=== PATIENT | female | born 1985 | race African-American/Black ===

== ENCOUNTER 2020-05-02 20:10 | Emergency (ER) | payer OTHER, SELFPAY ==
--- NOTE | ~2020-05-02 | XR_ITS ---
EXAMINATION: XR ankle RT min 3V DATE: 05/02/2020 21:16 INDICATION: Right ankle pain TECHNIQUE: Anteroposterior, lateral, mortise, and additional oblique view of the ankle were obtained. COMPARISON: 09/18/2012 FINDINGS: There is no fracture, dislocation, or subluxation. The bones, soft tissues, and joint space s are normal. IMPRESSION: 1. No acute osseous abnormality. Reviewed, dictated and finalized at location A.
[2020-05-02 20:12] VITALS: BP 152/85; PULSE 99; RESP 14; TEMP 36.8; O2SAT 100
--- NOTE | 2020-05-02 21:29 | ED.LOWEXIN ---
HPI - Extremity Injury (Lower) General Chief Complaint: Extremity Injury, Lower Stated Complaint: R foot injury Time Seen by Provider: 05/02/20 21:21 Source: patient Mode of arrival: ambulatory Limitations: no limitations History of Present Illness HPI Narrative: Patient is a 34-year-old female who presents to emergency department for evaluation of right foot pain patient notes that she was walking in flip-flops stepped in a hole injuring the right midfoot laterally along the fifth metatarsal noting aching pain worse with activity and movement patient denies other injuries or complaints or any radiation of pain presents after the injury has not taken anything for her symptoms denies similar occurrence in the past Related Data Allergies Allergy/AdvReac Type Severity Reaction Status Date / Time morphine Allergy Unknown Unknown Verified 05/02/20 21:30 peanut Allergy Unknown Unknown Verified 05/02/20 21:30 Penicillins Allergy Unknown Unknown Verified 05/02/20 21:30 Review of Systems Review of Systems: All systems reviewed & are unremarkable except as noted in HPI and below PMFSH Past Medical History Medical History Anemia Anxiety DVT (deep venous thrombosis) Migraine headache Uterine fibroid UTI (urinary tract infection) Surgical History Surgical History H/O tubal ligation Previous section Social History Social History Smoking status: Current every day smoker Alcohol intake: never Gender identity (if verbalized by the patient): Female Exam Narrative: Exam Narrative: GENERAL: Well-appearing, well-nourished, and in no acute distress. HEAD: Normocephalic, atraumatic. EYES: PERRLA and EOMI. ENT: Nares clear, no rhinorrhea or epistaxis. Mucous membranes moist. EXTREMITIES: Normal range of motion. No edema. Patient with tenderness along the lateral midfoot of the right foot no ankle tenderness SKIN: Warm, dry, no rash. NEURO: No focal deficits. Alert and oriented x3. Neurovascularly intact PSYCH: Normal mood and affect. Course Course Emergency Course: Patient in the room in no distress aware of case findings treatment plan and diagnosis Vital Signs Vital signs: Vital Signs Temperature 98.2 F 05/02/20 20:12 Pulse Rate 99 05/02/20 20:12 Respiratory Rate 14 05/02/20 20:12 Blood Pressure 152/85 H 05/02/20 20:12 Pulse Oximetry 100 05/02/20 20:12 Temperature 98.2 F 05/02/20 20:12 Pulse Rate 99 05/02/20 20:12 Respiratory Rate 14 05/02/20 20:12 Blood Pressure 152/85 H 05/02/20 20:12 Pulse Oximetry 100 05/02/20 20:12 MDM - Extremity Injury (Lower) MDM Narrative Medical decision making narrative: Patients injury or pain is consistent with musculoskeletal etiology. No signs of neurological or vascular compromise on exam. Compartments and tisues are soft without signs of compartment syndrome. Pain is felt appropriate for further evaluation on an outpatient basis. Imaging Data Radiologist's impression: ITS Impressions Ankle X-Ray 05/02/20 21:16 IMPRESSION: 1. No acute osseous abnormality. Discharge Plan Discharge Clinical Impression: Ankle sprain and strain Patient Disposition: Home, Self-Care Condition: Stable Instructions: Antibiotic Form, Ankle Sprain (ED) Additional Instructions: Wear Venkatesh wrap with limited weight on the affected leg until able to bear weight without pain. Ice and elevate extremity. Pain medication as needed and directed. Follow up with your doctor for further care in the next 7 days. Return if symptoms worsen or concern. Ibuprofen for pain management if you do not have an allergy Prescriptions: New ibuprofen [IBU] 600 mg tablet 600 mg PO QID PRN (Reason: fever or pain) Qty: 7 RF: 0 Follow-up/Referrals: PHYSICIAN,[facility] [Primary Ca
[2020-05-02 22:00] VITALS: BP 133/87; PULSE 90; RESP 20; O2SAT 97
== END 2020-05-02 22:00 | disposition home or self-care (01) ==
PROVIDERS: Emergency Provider Emergency Medicine
DX: S93.401A Sprain of unspecified ligament of right ankle, initial encounter (principal); S96.911A Strain of unspecified muscle and tendon at ankle and foot level, right foot, initial encounter; Z86.718 Personal history of other venous thrombosis and embolism; Z87.440 Personal history of urinary (tract) infections; X50.9XXA Other and unspecified overexertion or strenuous movements or postures, initial encounter
CPT/HCPCS: 73610; 99283

== ENCOUNTER 2020-08-17 21:42 | Emergency (ER) | payer OTHER, SELFPAY ==
--- NOTE | ~2020-08-17 | CT_ITS ---
EXAMINATION: CT abdomen pelvis w con DATE: 08/17/2020 22:48 INDICATION: Low abdominal pain. TECHNIQUE: Computed tomography (CT) of the abdomen and pelvis was performed with 100 mL Omnipaque 350 intravenous contrast. Automated exposure control and iterative reconstruction technique were employe d. The dose-length product was 1415.90 mGy-cm. COMPARISON: CT abdomen and pelvis 10/17/2019 FINDINGS: The visualized portions of the lung bases demonstrate minimal atelectasis. No pleural effus ion. The heart size is normal. No pericardial effusion. The liver, gallbladder, spleen, pancreas, adr enal glands, and kidneys are normal. There are no dilated loops of bowel. There are changes of append ectomy. There is an umbilical hernia containing fat. There are no pathologically enlarged lymph nodes . There is no free intraperitoneal fluid. There are fibroids in the uterus. There is mild thoracolumb ar spondylosis. IMPRESSION: 1. Uterine fibroids. 2. Umbilical hernia containing fat. Reviewed, dictated and finalized at location A. COILER
[2020-08-17 21:44] VITALS: BP 150/103; PULSE 85; RESP 16; TEMP 36.6; O2SAT 100
--- NOTE | 2020-08-17 21:50 | ED.GENADULT ---
HPI - General Adult General Chief complaint: Abdominal Pain Stated complaint: abd pain Time Seen by Provider: 08/17/20 21:50 Source: patient Mode of arrival: ambulatory Limitations: no limitations History of Present Illness HPI narrative: Patient is a 34-year-old female who presents for evaluation of a week of worsening abdominal pain. Pain is described as throughout the abdomen, aching, cramping in nature. At times she feels a spasm type pain through her abdominal muscles. She denies associated constipation or diarrhea. She denies nausea or vomiting. She does report abdominal fullness. Patient denies fever, chills. She denies any urinary symptoms. Patient has a follow-up with her primary care physician scheduled for 3 weeks from now. Related Data Allergies Allergy/AdvReac Type Severity Reaction Status Date / Time morphine Allergy Unknown Unknown Verified 05/02/20 21:30 peanut Allergy Unknown Unknown Verified 05/02/20 21:30 Penicillins Allergy Unknown Unknown Verified 05/02/20 21:30 Review of Systems Review of Systems: Narrative: CONSTITUTIONAL: Denies fever, chills, or sweats. EYES: Denies visual changes, redness, or discharge. ENT: Denies rhinorrhea, congestion, sore throat, or otalgia. CARDIOVASCULAR: Denies chest pain, palpitations, or edema. RESPIRATORY: Denies cough or dyspnea. GASTROINTESTINAL: Reports abdominal pain without nausea, vomiting, diarrhea or constipation GENITOURINARY: Denies dysuria or hematuria. SKIN: Denies rash or itching. MUSCULOSKELETAL: Denies back pain, joint pain, or myalgia. NEUROLOGIC: Denies headache, numbness, or weakness. [facility] Past Medical History Medical History (Updated 08/17/20 @ 23:17 by Kim Carballo MD) Anemia Anxiety DVT (deep venous thrombosis) Migraine headache Uterine fibroid UTI (urinary tract infection) Surgical History Surgical History H/O tubal ligation Previous section Family History Family History Father Diabetes mellitus Hypertension Social History Social History Smoking status: Current every day smoker Alcohol intake: never Gender identity (if verbalized by the patient): Female Exam Narrative: Exam Narrative: GENERAL: Awake, alert, conversant HEAD: Normocephalic, atraumatic. EYES: PERRLA and EOMI. ENT: Nares clear, no rhinorrhea or epistaxis. Mucous membranes moist. NECK: Supple. CHEST: No respiratory distress, breathing even and non labored HEART: Regular rate, sinus rhythm ABDOMEN: Obese, Non distended, mildly tender throughout, no rebound, nonrigid, no guarding EXTREMITIES: Normal range of motion. No edema. SKIN: Warm, dry, no rash. NEURO:No focal deficits. Alert and oriented x3 Course Vital Signs Vital signs: Vital Signs Temperature 36.6 C 08/17/20 21:44 Pulse Rate 85 08/17/20 21:44 Respiratory Rate 16 08/17/20 21:44 Blood Pressure 150/103 H 08/17/20 21:44 Pulse Oximetry 100 08/17/20 21:44 Temperature 36.6 C 08/17/20 21:44 Pulse Rate 85 08/17/20 21:44 Respiratory Rate 16 08/17/20 21:44 Blood Pressure 150/103 H 08/17/20 21:44 Pulse Oximetry 100 08/17/20 21:44 Medical Decision Making MDM Narrative Medical decision making narrative: Patient presented for evaluation of diffuse abdominal pain and bloating. At the time of assessment, ABCs are intact and vital signs are stable. Patient's abdomen is soft without significant pain or signs of surgical abdomen on serial exams. Lab and imaging evaluations are reviewed and patient is felt to be a reasonable candidate for outpatient management. No acute etiology to explain the patient's pain. She does not have a lower pelvis pain, vaginal discharge or bleeding to be suggestive of pelvic process. No UTI. At this point, symptoms seem more chronic, may be there related to a form o
[2020-08-17] MEDS: DICYCLOMINE HCL INJ 20 MG/2 ML VIAL IM (22:04)
[2020-08-17] MEDS: SODIUM CHLORIDE 0.9% IV 1,000 ML 999 ML IV CONT (22:05)
[2020-08-17 22:16] LABS: Basophils Percent Auto 0.4 % (0.2-1.2); Eosinophils Absolute Auto 0.2 K/mm3 (0-0.3); Eosinophils Percent Auto 2.8 % (0-4.4); Hematocrit 40.1 % (37.0-47.0); Immature Granulocyte Absolute 0.02 K/mm3 (0.00-0.031); Immature Granulocyte Percent A 0.3 % (0-0.5); Lymphocytes Absolute Auto 3.13 K/mm3 (0.9-3.2); Lymphocytes Percent Auto 39.7 % (18.3-44.2); Mean Corpuscular HGB Conc 32.4 g/dl (32-36); Mean Corpuscular Volume 86.2 fl (80-100); Mean Platelet Volume 9.4 fl (7.4-10.4); Monocytes Absolute Auto 0.6 K/mm3 (0.1-0.6); Monocytes Percent Auto 7.6 % (2.6-8.5); Neutrophils Absolute Auto 3.9 K/mm3 (1.3-6.7); Neutrophils Percent Auto 49.2 % (45.5-73.1); Platelet Count Result 405 k/mm3 (150-375); Red Blood Count 4.65 M/mm3 (4.2-5.4); Red Cell Distribution Width 14.4 % (11.5-14.5); White Blood Count 7.9 K/mm3 (4.5-10.0)
[2020-08-17 22:24] LABS: Alanine Aminotransferase 22 U/L (4-35); Albumin Level 4.5 g/dL (3.5-5.1); Alkaline Phosphatase 70 U/L (38-126); Anion Gap 9 mmol/L (8-16); Aspartate Amino Transferase 26 U/L (14-36); Bilirubin,Total 0.2 mg/dL (0.2-1.3); Blood Urea Nitrogen 14 mg/dL (7-17); Calcium 9.1 mg/dL (8.4-10.2); Carbon Dioxide 29 mmol/L (22-30); Chloride 106 mmol/L (98-107); Estimated CRCL calculation 100 ml/min; Estimated Glomerular Filt Rate > 60; Glucose 101 mg/dL (65-105); Lipase 84 U/L (23-300); Potassium 3.8 mmol/L (3.4-5.0); Sodium 144 mmol/L (137-145)
[2020-08-17 22:37] LABS: Add Urine Microscopic? YES; Amorphous Sediment Urine Few; Appearance Urine Cloudy (Clear); Bacteria Urine Trace /hpf; Bilirubin Urine Negative (Negative); Blood Urine Negative (Negative); Color Urine Yellow (Yellow); Glucose Urine UA Negative (Negative); Ketones Urine Negative (Negative); Leukocyte Esterase Ur Negative LEU/UL (Negative); Mucus Urine Rare /lpf; Nitrate Urine Negative (Negative); Protein Urine 1+ mg/dL (Negative); RBC Urine 0-2 /hpf (0-2); Specific Grav Ur 1.025 (1.001-1.035); Squamous Epithelial Cell Urine Moderate /hpf (Few); Urobilinogen Urine Negative mg/dL (<2.0); WBC Urine 0-3 /hpf
[2020-08-17] MEDS: METOCLOPRAMIDE HCL INJ 10 MG/2 ML VIAL IV PUSH (23:49)
[2020-08-17 23:57] VITALS: BP 114/74; PULSE 80; RESP 16; TEMP 36.6; O2SAT 98
== END 2020-08-17 23:59 | disposition home or self-care (01) ==
PROVIDERS: Emergency Provider Emergency Medicine; PCP Family Medicine
DX: R10.84 Generalized abdominal pain (principal); D25.9 Leiomyoma of uterus, unspecified; K42.9 Umbilical hernia without obstruction or gangrene; Z86.718 Personal history of other venous thrombosis and embolism; Z87.440 Personal history of urinary (tract) infections; Z86.2 Personal history of diseases of the blood and blood-forming organs and certain disorders involving the immune mechanism
CPT/HCPCS: 36415; 74177; 80053; 81001; 81025; 83690; 85025; 96361; 96372; 96374; 99284; J0500; J2765; J7030; Q9967

== ENCOUNTER 2020-11-10 04:49 | Inpatient (IN) | payer OTHER, SELFPAY ==
[2020-11-10] VITALS (22 sets, daily range): BP systolic 112–173; BP diastolic 50–92; PULSE 115–147; RESP 14–33; TEMP 36.6–37.9; O2SAT 93–98; BMI 47.8
--- NOTE | ~2020-11-10 | CT_ITS ---
EXAMINATION: CT guide absc cath placement DATE: 11/10/2020 16:04 INDICATION: Sepsis due to pelvic fluid collection post hysterectomy TECHNIQUE: The procedure including the risks and benefits was discussed with the patient. Risks discu ssed included bleeding and infection, adjacent organ injury and allergic reaction. The patient unders tood the risks and benefits and agreed to proceed. The patient was confirmed to be receiving appropri ate antibiotic coverage. The skin overlying the medial right buttock was prepped and draped in usual sterile fashion. Anesthetic was administered with 1% lidocaine subcutaneously. Additional conscious sedation was provided by the department of anesthesia. An 18-gauge trocar needle was inserted into t he deep pelvic peritoneal fluid collection utilizing intermittent CT guidance. Position was confirmed by CT and by spontaneous efflux of dark reddish fluid. A J-wire was advanced through the needle with position confirmed by CT. Utilizing Seldinger technique the needle was removed over the wire and the tract serially dilated to 10 Indonesian. An 8.5 Indonesian drainage catheter was advanced over the wire into the fluid collection and the loop formed and locked. Following confirmation of positioning by CT the wire was removed and the catheter was stitched to the skin with suture. An about equipment and a neil rile dressing were applied. The catheter was then attached to suction drainage yielding an additional 125 mm of opaque dark maroon-colored fluid. There were no immediate complications. The dose-length p roduct was 650.97 mGy-cm. FINDINGS: CT images demonstrate the catheter within the loculated gas and fluid containing collection in the deep pelvis. 10 mL fluid was aspirated for testing. IMPRESSION: 1. Successful CT-guided pelvic peritoneal abscess drainage. 2. 10 mL fluid was sent for aerobic and anaerobic cultures. 3. The catheter will be managed by Dr. Saeed. Reviewed, dictated and finalized at location A. [employer] SAL[employer] REPRESENTATIVE
--- NOTE | ~2020-11-10 | CT_ITS ---
EXAMINATION: CTA chest PE abdomen pel DATE: 11/10/2020 06:36 INDICATION: Shortness of breath, tachycardia and abdominal pain post recent hysterectomy TECHNIQUE: Computed tomography (CT) pulmonary angiogram of the chest was performed with 100 mL Omnipa que-350 intravenous contrast. Additional 3D reconstructions utilizing coronal maximum intensity proje ction (MIP) were performed. CT of the abdomen and pelvis was performed with intravenous contrast util izing the same contrast bolus following a short delay. Automated exposure control and iterative recon struction technique were employed. The dose-length product was 2399.67 mGy-cm. COMPARISON: CT abdomen and pelvis dated 08/17/2020 FINDINGS: Chest: Good contrast opacification of the pulmonary arteries. There is mild streak artifact from dense contr ast in the superior vena cava and right atrium. Mild scattered respiratory motion artifact. Together this decreases sensitivity in the smaller subsegmental pulmonary arteries. No evident pulmonary embol ism. Bands of consolidation with volume loss and homogeneous parenchymal enhancement in the bilateral lower lobes and favor atelectasis over pneumonia. Small peripheral region of groundglass opacity in the right upper lobe. No septal line thickening to suggest pulmonary edema. No pleural effusion. Mild cardiomegaly. No pericardial effusion. Thoracic aorta is normal in caliber with no dissection. No pa thologically enlarged thoracic lymphadenopathy. Bones are unremarkable. Abdomen/pelvis: Diffuse hepatic steatosis. Gallbladder, spleen, pancreas, bilateral adrenal glands and kidneys are no rmal. Bladder is normal. The uterus is not identified and has likely been surgically resected. There is multiloculated fluid collection containing several foci of gas in the posterior right lower quadra nt extending into the uterine fossa and measures approximately 9.9 x 5.7 cm in maximal transaxial dim ensions. There is a gradient of increasing attenuation in the fluid at the cul-de-sac which could rep resent small amount of hemoperitoneum. A few nondilated gas and fluid-filled loops of small bowel whi ch could represent a postoperative ileus. No frankly dilated bowel or discrete transition point to eng ggest obstruction. Appendix is not visualized. Surgical clips and suture line near the tip of the cec um in the right lower quadrant suggesting prior appendectomy. Small fat-containing umbilical hernia. Small amount of subcutaneous gas at the right abdomen likely related to the recent prior surgery. Bon es are unremarkable. IMPRESSION: 1. Loculated fluid collection in the right lower quadrant and extending into the uterine fossa post r ecent hysterectomy. Differential would include hematoma/seroma or abscess. 2. No pulmonary embolism through the subsegmental pulmonary arteries with sensitivity decreased in th e more peripheral pulmonary arteries due to suboptimal contrast opacification and some respiratory mo tion. 3. Consolidation in the bilateral lower lobes and small region of groundglass opacity in the right up per lobe and favor atelectasis over pneumonia. 4. Diffuse hepatic steatosis. 5. Mild cardiomegaly. Reviewed, dictated and finalized at location A. ICAL LABORATORY AIDE IMPRESSION: 1. Loculated fluid collection in the right lower quadrant and extending into th e uterine fossa post recent hysterectomy. Differential would include hematoma/s eroma or abscess. 2. No pulmonary embolism through the subsegmental pulmonary arteries with sensi tivity decreased in the more peripheral pulmonary arteries due to suboptimal co ntrast opacification and some respiratory motion. 3. Consolidation in the bilateral lower lobes and small region of groundglass o pacity in the right upper lobe and favor atelectasis over pneumonia. 4.
--- NOTE | 2020-11-10 04:54 | ECG_ITS ---
Measurements Intervals Cooper Rate: 142 P: 40 FL: 142 QRS: 30 QRSD: 88 T: -3 QT: 349 QTc: 538 Interpretive Statements SINUS TACHYCARDIA BORDERLINE ST-T WAVE ABNORMALITY- INFERIOR LEADS BASELINE ARTIFACT- I, III, AVL ABNORMAL ECG Electronically Signed On 11-10-2020 8:22:00 X RAY OPERATOR by Hector Loco D.O.
--- NOTE | 2020-11-10 04:57 | ED.ABDPAIN ---
HPI - Abdominal Pain General Chief Complaint: Abdominal Pain <Tyrel Chavez DO - Last Filed: 11/10/20 07:29> Stated Complaint: CP/ SOB/ Abd pain <Tyrel Chavez DO - Last Filed: 11/10/20 07:29> Time Seen by Provider: 11/10/20 08:13 <Tyrel Chavez DO - Last Filed: 11/10/20 07:29> Source: patient <Tyrel Chavez DO - Last Filed: 11/10/20 07:29> Mode of arrival: EMS <Tyrel Chavez DO - Last Filed: 11/10/20 07:29> Limitations: no limitations <Tyrel Chavez DO - Last Filed: 11/10/20 07:29> History of Present Illness HPI narrative: A 35-year-old female comes into the emergency department tonight via EMS for complaints of shortness of breath and chest pain. Patient states that she has been having trouble breathing. She states he feels like she cannot get air in. EMS noted that the patient was febrile. The patient's story has been inconsistent between myself, nursing staff and EMS. For me the patient states her biggest issues are the shortness of breath and some chest pain. To nursing staff and EMS she talked about her abdominal pain from the recent surgery. When I asked the patient about this she states that it has been unchanged she admits her surgery and is not all that bothersome. <Tyrel Chavez DO - Last Filed: 11/10/20 07:29> Related Data Home Medications: Home Medications Medication Instructions Recorded Confirmed No Home Medications 11/10/20 11/10/20 <Tyrel Chavez DO - Last Filed: 11/10/20 07:29> Allergies/Adverse Reactions: Allergies Allergy/AdvReac Type Severity Reaction Status Date / Time morphine Allergy Unknown Unknown Verified 11/10/20 08:34 peanut Allergy Unknown Unknown Verified 11/10/20 08:34 Penicillins Allergy Unknown Unknown Verified 11/10/20 08:34 <Tyrel Chavez DO - Last Filed: 11/10/20 07:29> Review of Systems Review of Systems: Narrative: CONSTITUTIONAL: Denies fever, chills, or sweats. EYES: Denies visual changes, redness, or discharge. ENT: Denies rhinorrhea, congestion, sore throat, or otalgia. CARDIOVASCULAR: Endorses chest pain. RESPIRATORY: Endorses shortness of breath. GASTROINTESTINAL: Denies nausea, vomiting, or diarrhea. Endorses abdominal pain associated with recent surgery GENITOURINARY: Denies dysuria or hematuria. SKIN: Denies rash or itching. MUSCULOSKELETAL: Denies back pain, joint pain, or myalgia. NEUROLOGIC: Denies headache, numbness, dizziness, or weakness. PSYCHIATRIC: Denies anxiety or depression. <Tyrel Chavez DO - Last Filed: 11/10/20 07:29> PMFSH Past Medical History Medical History: Medical History (Updated 11/10/20 @ 18:24 by Gena Lewis MD) Anemia Anxiety DVT (deep venous thrombosis) Migraine headache Uterine fibroid UTI (urinary tract infection) <Tyrel Chavez DO - Last Filed: 11/10/20 07:29> Surgical History Surgical History: Surgical History H/O tubal ligation Previous section <Tyrel Chavez DO - Last Filed: 11/10/20 07:29> Family History Family History: Family History Father Diabetes mellitus Hypertension <Tyrel Chavez DO - Last Filed: 11/10/20 07:29> Social History Social History: Social History Smoking packs per day: 0.5 Smoking cigarettes per day: 10.0 Years smoked: 15 Smoking pack-years: 7.50 Smoking status: Current every day smoker Tobacco type: cigarettes Alcohol intake: current Substance use: former Substance use type: marijuana Other substance usage details: Drinks one glass of wine about every 3 months. Gender identity (if verbalized by the patient): Female Spiritual care concerns: No <Tyrel Chavez DO - Last Filed: 11/10/20 07:29> Exam Narrative: Exam Narrative: GENERAL: Well-appearing, well-nourished, and in no acute d
[2020-11-10] MEDS: LACTATED RINGERS 1,000 ML 999 ML IV CONT ×3 (05:15→17:05)
[2020-11-10] MEDS: ACETAMINOPHEN 500 MG TABLET 1000 MG PO (05:16)
[2020-11-10] MEDS: KETOROLAC 15 MG/ML VIAL (*BKC) IV PUSH (05:29)
[2020-11-10 05:30] LABS: Basophils Absolute Auto 0.1 K/mm3 (0.0-0.1); Basophils Percent Auto 0.4 % (0.2-1.2); Eosinophils Absolute Auto 0.1 K/mm3 (0-0.3); Eosinophils Percent Auto 0.3 % (0-4.4); Hematocrit 35.4 % (37.0-47.0); Hemoglobin 11.3 g/dL (12.0-15.0); Immature Granulocyte Percent A 0.6 % (0-0.5); Lymphocytes Absolute Auto 0.84 K/mm3 (0.9-3.2); Lymphocytes Percent Auto 5.1 % (18.3-44.2); Mean Corpuscular HGB Conc 31.9 g/dl (32-36); Mean Corpuscular Hemoglobin 27.9 pg (26-34); Mean Corpuscular Volume 87.4 fl (80-100); Mean Platelet Volume 10.1 fl (7.4-10.4); Monocytes Absolute Auto 1.1 K/mm3 (0.1-0.6); Monocytes Percent Auto 6.4 % (2.6-8.5); Neutrophils Absolute Auto 14.3 K/mm3 (1.3-6.7); Neutrophils Percent Auto 87.2 % (45.5-73.1); Platelet Count Result 403 k/mm3 (150-375); Red Blood Count 4.05 M/mm3 (4.2-5.4); Red Cell Distribution Width 14.8 % (11.5-14.5); White Blood Count 16.4 K/mm3 (4.5-10.0)
[2020-11-10 05:39] LABS: INR 1.1
[2020-11-10 05:40] LABS: Partial Thromboplastin Time 41.8 SECONDS (22.3-36.8)
[2020-11-10 05:42] LABS: Lactic Acid Reflex 1.6 mmol/L (0.7-2.1)
[2020-11-10 06:04] LABS: Alanine Aminotransferase 30 U/L (4-35); Albumin Level 3.6 g/dL (3.5-5.1); Alkaline Phosphatase 105 U/L (38-126); Anion Gap 3 mmol/L (8-16); Aspartate Amino Transferase 29 U/L (14-36); Bilirubin,Total 1.7 mg/dL (0.2-1.3); Blood Urea Nitrogen 6 mg/dL (7-17); Calcium 8.3 mg/dL (8.4-10.2); Carbon Dioxide 25 mmol/L (22-30); Chloride 107 mmol/L (98-107); Estimated CRCL calculation 125 ml/min; Estimated Glomerular Filt Rate > 60; Glucose 111 mg/dL (65-105); Potassium 3.2 mmol/L (3.4-5.0); Sodium 135 mmol/L (137-145)
[2020-11-10 06:25] LABS: CRP 41.5 mg/dL (<1.0)
[2020-11-10] MEDS: fentaNYL CITRATE INJ (*CRX) 100 MCG/2 ML VIAL 50 MCG IV PUSH (06:50)
[2020-11-10] MEDS: ONDANSETRON INJ 4 MG/2 ML VIAL IV PUSH (08:34)
[2020-11-10] MEDS: HYDROmorphone HCL INJ (*CRX) 1 MG/ML SYR IV PUSH (08:36)
[2020-11-10 08:46] LABS: Troponin I < 0.012 ng/mL (0.000-0.034)
[2020-11-10 09:04] LABS: Add Urine Microscopic? YES; Appearance Urine Clear (Clear); Bilirubin Urine Negative (Negative); Blood Urine 3+ (Negative); Color Urine Yellow (Yellow); Glucose Urine UA Negative (Negative); Ketones Urine 2+ mg/dL (Negative); Leukocyte Esterase Ur 2+ LEU/UL (Negative); Nitrate Urine Negative (Negative); Protein Urine 2+ mg/dL (Negative)
[2020-11-10 09:08] LABS: Bacteria Urine Trace /hpf; Mucus Urine Rare /lpf; RBC Urine >75 /hpf (0-2); Specific Grav Ur > 1.060 (1.001-1.035); Squamous Epithelial Cell Urine Many /hpf (Few); WBC Urine 31-50 /hpf
--- NOTE | 2020-11-10 09:39 | PC.NURSE ---
CT called at this time to discuss the placement of a CT guided drain. She stated I will talk to the radiologist and get back to you .
--- NOTE | 2020-11-10 09:58 | PM.IMHP ---
H&P: HPI History of Present Illness Date/Time: 11/10/20 09:58 Chief Complaint: fever + abdominal pain s/p hysterectomy Narrative: Lyudmila Wooten is a 35 year old female who is s/p RA-TL on 11/07/20 who presented to the ER via ambulance with abdominal pain, fever, SOB. She was found to be febrile to 102, WBC 16, and CT showed pelvic collection measuring 13x8cm w/ concerns for possibly developing SBO. CTA ruled out PE. She reports pelvic pain and SOB due to the pain. She feels pelvic fullness w/ urination; no dysuria. No vaginal bleeding or discharge. She has not eaten since last night. She reports passing flatus; no BM. +fever. No NIEVES, vision changes, CP, nausea, vomiting. Review of Systems Review of Systems: All systems reviewed & are unremarkable except as noted in HPI and below (HPI) PMFSH Past Medical History Medical History (Updated 11/10/20 @ 10:27 by Inocencia Saeed MD) Anemia Anxiety DVT (deep venous thrombosis) Migraine headache Uterine fibroid UTI (urinary tract infection) Surgical History Surgical History H/O tubal ligation Previous section Family History Family History Father Diabetes mellitus Hypertension Social History Social History Smoking status: Current every day smoker Alcohol intake: never Gender identity (if verbalized by the patient): Female Meds Home Medications and Allergies Home Medications Medication Instructions Recorded Confirmed Type No Home Medications 11/10/20 11/10/20 History Allergies Allergy/AdvReac Type Severity Reaction Status Date / Time morphine Allergy Unknown Unknown Verified 11/10/20 08:34 peanut Allergy Unknown Unknown Verified 11/10/20 08:34 Penicillins Allergy Unknown Unknown Verified 11/10/20 08:34 Vital Signs Vital Signs - 24 hr 11/10/20 04:47 11/10/20 05:33 11/10/20 05:45 Temperature 37.9 C H Pulse Rate 147 H 135 H 135 H Respiratory Rate 30 H 33 H 31 H Blood Pressure 173/92 H 169/89 H Pulse Oximetry 94 95 94 11/10/20 06:00 11/10/20 06:01 11/10/20 06:36 Temperature Pulse Rate 134 H 136 H 136 H Respiratory Rate 32 H 30 H 33 H Blood Pressure 147/76 H Pulse Oximetry 94 94 95 11/10/20 06:38 11/10/20 06:45 11/10/20 07:20 Temperature 37.9 C H Pulse Rate 138 H 133 H Respiratory Rate 30 H 20 Blood Pressure 131/81 Pulse Oximetry 94 94 11/10/20 07:33 11/10/20 08:14 11/10/20 08:46 Temperature Pulse Rate 126 H 126 H 128 H Respiratory Rate 22 H 24 H 18 Blood Pressure 151/79 H 151/83 H 112/50 L Pulse Oximetry 94 96 95 Exam Const: General: cooperative and ill appearing Nutritional Appearance: obese Resp: Effort & Inspection: normal respiratory effort and able to speak in complete sentences Auscultation: clear to auscultation bilaterally Cardio: Rate: tachycardic GI: Inspection: incision (x4 covered w/ dermabond; w/o erythema or drainage) GI Palp: Yes abdominal tenderness and Yes Soft to palpation Auscultation: Hypoactive bowel sounds present Skin: General skin exam: normal color Neuro: General: patient oriented x3 Psych: Appearance: grossly normal Speech and movement: Normal speech and movement present Affect: normal affect Attitude: cooperative H&P: Results Labs Labs: Short CBC 11/10/20 Range/Units 05:12 WBC 16.4 H (4.5-10.0) K/mm3 Hgb 11.3 L (12.0-15.0) g/dL Hct 35.4 L (37.0-47.0) % Plt Count 403 H (150-375) k/mm3 BMP 11/10/20 05:12 Sodium 135 L Potassium 3.2 L Chloride 107 Carbon Dioxide 25 BUN 6 L D Creatinine 0.70 Glucose 111 H Calcium 8.3 L Cardiac Enzymes 11/10/20 Range/Units 05:15 Troponin I < 0.012 (0.000-0.034) ng/mL Liver Function 11/10/20 Range/Units 05:12 Total Bilirubin 1.7 H (0.2-1.3) mg/dL AST 29 (14-36) U/L ALT 3
--- NOTE | 2020-11-10 10:15 | PC.NURSE ---
This patient, Lyudmila Wooten, was admitted to Medical Room 343-01. Patient/family oriented to hospital policies and general routines including ID bracelet, bed and alarms, visiting hours, pain management, procedures, bathroom and other care routines, personal items, smoking policy, room service/diet, and visiting hours. Information on how to activate the Rapid Response Team has been discussed. Patient/Family are encouraged to report perceived risks to care and to ask questions if they do not understand what they are told or what they should do.
[2020-11-10] MEDS: oxyCODONE/ACETAMINOPHEN (*CRX) 5-325 MG TABLET 2 TABLET PO ×2 (10:28→23:41)
--- NOTE | 2020-11-10 10:28 | WPDHPUPDATE1 ---
History and Physical Update Update Date/Time: 11/10/20 10:28 History and Physical has been reviewed, including an updated exam of the patient. There are NO changes in the patient's condition. Risks, benefits, and alternatives have been discussed and questions answered. Patient agrees to proceed with procedure.
[2020-11-10] MEDS: CLINDAMYCIN 900 MG/D5W 50 ML 900 MG/50 ML PIGGYBACK 50 MG IVPB ×2 (11:41→18:55)
[2020-11-10] MEDS: AZTREONAM 2 GM in DEXTROSE 5% 100 ML IVPB ×2 (12:35→20:11)
--- NOTE | 2020-11-10 14:29 | WPDANESEPPF ---
Anes - Initial Pre Proc Eval Procedure: CT guided pelvic drain placement Date/Time: 11/10/20 14:29 Surgeon: Lara Pre Op Diagnosis: Pelvic fluid collection Pre Op Diagnosis: pelvic collection s/p hysterectomy Patient Data Age: 35 Gender: F Height: 1.65 m Weight: 130.5 kg Last Vital Signs Temp 36.6 C 11/10/20 10:41 Pulse 125 H 11/10/20 13:35 Resp 20 11/10/20 11:21 BP 138/72 11/10/20 10:41 Pulse Ox 98 11/10/20 11:21 Allergies Allergy/AdvReac Type Severity Reaction Status Date / Time morphine Allergy Unknown Unknown Verified 11/10/20 08:34 peanut Allergy Unknown Unknown Verified 11/10/20 08:34 Penicillins Allergy Unknown Unknown Verified 11/10/20 08:34 Home Medications Medication Instructions Recorded Confirmed Type No Home Medications 11/10/20 11/10/20 History Laboratory Tests 11/10/20 11/10/20 11/10/20 05:12 05:12 05:12 WBC 16.4 K/mm3 H K/mm3 (4.5-10.0) RBC 4.05 M/mm3 L M/mm3 (4.2-5.4) Hgb 11.3 g/dL L g/dL (12.0-15.0) Hct 35.4 % L % (37.0-47.0) MCV 87.4 fl fl (80-100) MCH 27.9 pg pg (26-34) MCHC 31.9 g/dl L g/dl (32-36) RDW 14.8 % H % (11.5-14.5) Plt Count 403 k/mm3 H k/mm3 (150-375) MPV 10.1 fl fl (7.4-10.4) Immature Gran % (Auto) 0.6 % H % (0-0.5) Neut % (Auto) 87.2 % H % (45.5-73.1) Lymph % (Auto) 5.1 % L % (18.3-44.2) [place] % (Auto) 6.4 % % (2.6-8.5) Eos % (Auto) 0.3 % % (0-4.4) Baso % (Auto) 0.4 % % (0.2-1.2) Lymph # (Auto) 0.84 K/mm3 L K/mm3 (0.9-3.2) [place] # (Auto) 1.1 K/mm3 H K/mm3 (0.1-0.6) Eos # (Auto) 0.1 K/mm3 K/mm3 (0-0.3) Baso # (Auto) 0.1 K/mm3 K/mm3 (0.0-0.1) Abs Immat Gran (auto) 0.10 K/mm3 H K/mm3 (0.00-0.031) Absolute Neuts (auto) 14.3 K/mm3 H K/mm3 (1.3-6.7) Absolute Nucleated RBC 0.0 K/mm3 K/mm3 (0.0-0.012) Nucleated RBC % 0.0 % % (0.0-0.2) PT 15.0 Seconds H Seconds (11.1-14.7) INR 1.1 APTT 41.8 SECONDS H SECONDS (22.3-36.8) Sodium 135 mmol/L L mmol/L (137-145) Potassium 3.2 mmol/L L mmol/L (3.4-5.0) Chloride 107 mmol/L mmol/L (98-107) Carbon Dioxide 25 mmol/L mmol/L (22-30) Anion Gap 3 mmol/L L mmol/L (8-16) BUN 6 mg/dL L D mg/dL (7-17) Creatinine 0.70 mg/dL mg/dL (0.7-1.0) Estim Creat Clear Calc 125 ml/min ml/min Estimated GFR > 60 (59 - ) Glucose 111 mg/dL H mg/dL (65-105) Lactic Acid Calcium 8.3 mg/dL L mg/dL (8.4-10.2) Total Bilirubin 1.7 mg/dL H mg/dL (0.2-1.3) AST 29 U/L U/L (14-36) ALT 30 U/L U/L (4-35) Alkaline Phosphatase 105 U/L U/L (38-126) Troponin I C-Reactive Protein 41.5 mg/dL H mg/dL (<1.0) Total Protein 7.0 g/dL g/dL (6.3-8.2) Albumin 3.6 g/dL g/dL (3.5-5.1) Urine Color Urine Appearance Urine pH Ur Specific [place] Urine Protein Urine Glucose (UA) Urine Ketones Ur Blood (Man) Urine Nitrate Urine Bilirubin Urine Urobilinogen Leukocyte Esterase Rfl Urine RBC Urine WBC Ur Squamous Epith Cells Urine Bacteria Urine Mucus 11/10/20 11/10/20 11/10/20 05:12 05:15 08:39 WBC RBC Hgb Hct MCV MCH MCHC RDW Plt Count MPV Immature Gran % (Auto) Neut % (Auto) Lymph % (Auto) [place] % (Auto) Eos % (Auto) Baso % (Auto
[2020-11-10] MEDS: oxyCODONE/ACETAMINOPHEN (*CRX) 5-325 MG TABLET 1 TABLET PO (17:14)
[2020-11-10] MEDS: DOCUSATE SODIUM 100 MG CAPSULE PO (18:51)
[2020-11-10] MEDS: HYDROmorphone HCL INJ (*CRX) 1 MG/ML SYR 0.5 MG IV PUSH (20:07)
[2020-11-10] MEDS: LACTATED RINGERS 1,000 ML 125 ML IV CONT (23:41)
[2020-11-11] MEDS: TOPIRAMATE 25 MG TABLET PO ×3 (01:01→20:03)
[2020-11-11] MEDS: CLINDAMYCIN 900 MG/D5W 50 ML 900 MG/50 ML PIGGYBACK 50 MG IVPB ×3 (01:01→17:12)
[2020-11-11] MEDS: AZTREONAM 2 GM in DEXTROSE 5% 100 ML IVPB ×3 (03:20→20:04)
[2020-11-11 05:59] VITALS: BP 151/91; PULSE 124; RESP 14; TEMP 37.3; O2SAT 93
[2020-11-11 06:08] LABS: Basophils Percent Auto 0.3 % (0.2-1.2); Eosinophils Absolute Auto 0.1 K/mm3 (0-0.3); Hematocrit 30.7 % (37.0-47.0); Hemoglobin 9.9 g/dL (12.0-15.0); Immature Granulocyte Absolute 0.17 K/mm3 (0.00-0.031); Immature Granulocyte Percent A 1.2 % (0-0.5); Lymphocytes Absolute Auto 1.08 K/mm3 (0.9-3.2); Lymphocytes Percent Auto 7.5 % (18.3-44.2); Mean Corpuscular HGB Conc 32.2 g/dl (32-36); Mean Corpuscular Hemoglobin 27.8 pg (26-34); Mean Corpuscular Volume 86.2 fl (80-100); Mean Platelet Volume 9.9 fl (7.4-10.4); Monocytes Percent Auto 6.9 % (2.6-8.5); Neutrophils Absolute Auto 12.1 K/mm3 (1.3-6.7); Neutrophils Percent Auto 83.1 % (45.5-73.1); Platelet Count Result 401 k/mm3 (150-375); Red Blood Count 3.56 M/mm3 (4.2-5.4); Red Cell Distribution Width 14.6 % (11.5-14.5); White Blood Count 14.5 K/mm3 (4.5-10.0)
[2020-11-11 06:17] LABS: Anion Gap 6 mmol/L (8-16); Blood Urea Nitrogen 6 mg/dL (7-17); Carbon Dioxide 27 mmol/L (22-30); Chloride 102 mmol/L (98-107); Estimated CRCL calculation 115 ml/min; Estimated Glomerular Filt Rate > 60; Glucose 107 mg/dL (65-105); Potassium 3.1 mmol/L (3.4-5.0); Sodium 135 mmol/L (137-145)
[2020-11-11] MEDS: HYDROmorphone HCL INJ (*CRX) 1 MG/ML SYR 0.5 MG IV PUSH ×3 (09:06→20:03)
[2020-11-11 09:09] VITALS: TEMP 37.7
[2020-11-11] MEDS: DOCUSATE SODIUM 100 MG CAPSULE PO ×2 (09:10→17:11)
[2020-11-11 09:12] VITALS: TEMP 37.7
[2020-11-11] MEDS: ACETAMINOPHEN 325 MG TABLET 650 MG PO (09:12)
[2020-11-11] MEDS: oxyCODONE/ACETAMINOPHEN (*CRX) 5-325 MG TABLET 2 TABLET PO ×2 (09:48→16:18)
--- NOTE | 2020-11-11 10:25 | PM.GYNPNOP ---
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 She continues to drain from her CT guided procedure yesterday. White blood cell count is elevated but has improved from yesterday. Continues to be afebrile. Will continue IV fluids and antibiotics. Further plan based on response to the above. Time Spent With Patient Time: Total time spent is greater than 50% in coordination of care (as documented) at patient's floor/unit and/or counseling patient: Time with patient: less than 15 minutes KNITTING TEACHER- PN:Subj Post-Op Subjective Date/time seen: 11/11/20 10:25 This Je states that today she feels a bit better than yesterday. Still with right lower quadrant pressure and pain. She has been tolerating her clear liquid diet with no nausea and has been passing gas without difficulty. Exam GI: Inspection: normal to inspection and incision GI Palp: Yes abdominal tenderness (In right lower quadrant. Minimal guarding. No rebound.) KNITTING TEACHER - PN: Obj Data Vital Signs Vital Signs: Vital Signs - 24 hr 11/10/20 10:41 11/10/20 11:21 11/10/20 13:35 Temperature 36.6 C Pulse Rate 128 H 128 H 125 H Respiratory Rate 20 20 Blood Pressure 138/72 Pulse Oximetry 98 98 11/10/20 16:30 11/10/20 16:45 11/10/20 17:15 Temperature 36.9 C 37.1 C 37.6 C Pulse Rate 134 H 129 H 127 H Respiratory Rate 20 20 20 Blood Pressure 151/81 H 143/74 H 142/74 H Pulse Oximetry 93 98 94 11/10/20 18:22 11/10/20 19:20 11/10/20 19:33 Temperature 37.6 C H 36.7 C Pulse Rate 131 H 128 H 128 H Respiratory Rate 20 14 Blood Pressure 135/67 117/77 Pulse Oximetry 96 94 11/11/20 05:59 11/11/20 09:09 11/11/20 09:12 Temperature 37.3 C 37.7 C H 37.7 C H Pulse Rate 124 H Respiratory Rate 14 Blood Pressure 151/91 H Pulse Oximetry 93 Intake/Output Intake/Output: Intake & Output 11/08/20 11/09/20 11/10/20 11/11/20 23:59 23:59 23:59 23:59 Intake Total 2590 490 Output Total 490 635 Balance 2100 -145 Meds/Results Medications: Active Medications Generic Name Dose Route Start Last Admin Trade Name Freq PRN Reason Stop Dose Admin Acetaminophen 650 mg 11/10/20 09:24 11/11/20 09:12 Acetaminophen 325 Mg Tablet PO 650 mg ONCE PRN Administration Pain Rated 1-3 Docusate Sodium 100 mg 11/10/20 17:00 11/11/20 09:10 Docusate Sodium 100 Mg Capsule PO 100 mg BID ИРИНА Administration Hydromorphone HCl 0.5 mg 11/10/20 09:24 11/11/20 09:06 Hydromorphone Hcl Inj (*Crx) 1 Mg/Ml Syr IV PUSH 0.5 mg Q2H PRN Administration break through pain Ceftriaxone Sodium/Dextrose 1 gm in 50 mls @ 100 mls/hr 11/11/20 06:00 11/11/20 05:54 Rocephin 1 Gm/D5w 50 Ml IVPB Infused Q24H ИРИНА Infusion Lactated Ringer's 1,000 mls @ 125 mls/hr 11/10/20 08:50 11/10/20 23:41 Lr - Lactated Ringers Iv IV CONT 125 mls/hr .Q8H ИРИНА Administration Aztreonam 2 gm/ Dextrose 100 mls @ 200 mls/hr 11/10/20 12:00 11/11/20 03:50 IVPB Infused Q8H ИРИНА Infusion Clindamycin Phosphate 900 mg in 50 mls @ 50 mls/hr 11/10/20 10:00 11/11/20 10:09 Cleocin 900 Mg/D5w 50 Ml IVPB Infused Q8H ИРИНА Infusion Ondansetron HCl 4 mg 11/10/20 09:20 Ondansetron Inj 4 Mg/2 Ml Vial IV PUSH Q6H PRN Nausea Oxycodone/Acetaminophen 1 tablet 11/10/20 09:24 11/10/20 17:14 Oxycodone/Acetaminophen (*Crx) 5-325 Mg Tablet PO 1 tablet Q4H PRN Administration Pain Rated 4-6 Oxycodone/Acetaminophen 2 tablet 11/10/20 09:24 11/11/20 09:48 Oxycodone/Acetaminophen (*Crx) 5-325 Mg Tablet PO 2 tablet Q6H PRN Administration Pain Rated 7-10 Simethicone 80 mg 11/10/20 09:20 Simethicone 80 Mg Tab.Chew PO Q2H PRN Gas Topiramate 25 mg 11/11/20 00:45 11/11/20 01:01 Topiramate 25
[2020-11-11] MEDS: LACTATED RINGERS 1,000 ML 125 ML IV CONT ×2 (11:36→23:07)
[2020-11-11 13:46] VITALS: BP 121/76; PULSE 110; RESP 16; TEMP 36.5; O2SAT 94
[2020-11-11 19:29] VITALS: BP 124/67; PULSE 110; RESP 18; TEMP 36.8; O2SAT 95
[2020-11-11] MEDS: oxyCODONE/ACETAMINOPHEN (*CRX) 5-325 MG TABLET 1 TABLET PO (23:07)
[2020-11-12] MEDS: CLINDAMYCIN 900 MG/D5W 50 ML 900 MG/50 ML PIGGYBACK 50 MG IVPB ×3 (01:39→17:28)
[2020-11-12] MEDS: oxyCODONE/ACETAMINOPHEN (*CRX) 5-325 MG TABLET 2 TABLET PO ×3 (01:44→18:03)
[2020-11-12 04:11] VITALS: BP 147/61; PULSE 115; RESP 18; TEMP 37; O2SAT 98
[2020-11-12] MEDS: AZTREONAM 2 GM in DEXTROSE 5% 100 ML IVPB ×3 (04:14→20:08)
[2020-11-12] MEDS: HYDROmorphone HCL INJ (*CRX) 1 MG/ML SYR 0.5 MG IV PUSH ×4 (05:25→23:30)
[2020-11-12 06:09] LABS: Basophils Absolute Auto 0.1 K/mm3 (0.0-0.1); Basophils Percent Auto 0.5 % (0.2-1.2); Eosinophils Absolute Auto 0.3 K/mm3 (0-0.3); Eosinophils Percent Auto 1.8 % (0-4.4); Hematocrit 28.8 % (37.0-47.0); Hemoglobin 9.4 g/dL (12.0-15.0); Immature Granulocyte Absolute 0.22 K/mm3 (0.00-0.031); Immature Granulocyte Percent A 1.5 % (0-0.5); Lymphocytes Percent Auto 9.1 % (18.3-44.2); Mean Corpuscular HGB Conc 32.6 g/dl (32-36); Mean Corpuscular Hemoglobin 27.9 pg (26-34); Mean Corpuscular Volume 85.5 fl (80-100); Mean Platelet Volume 10.2 fl (7.4-10.4); Monocytes Absolute Auto 1.3 K/mm3 (0.1-0.6); Monocytes Percent Auto 9.4 % (2.6-8.5); Neutrophils Percent Auto 77.7 % (45.5-73.1); Platelet Count Result 389 k/mm3 (150-375); Red Blood Count 3.37 M/mm3 (4.2-5.4); Red Cell Distribution Width 14.7 % (11.5-14.5); White Blood Count 14.2 K/mm3 (4.5-10.0)
[2020-11-12 06:29] LABS: Alanine Aminotransferase 18 U/L (4-35); Alkaline Phosphatase 104 U/L (38-126); Anion Gap 4 mmol/L (8-16); Aspartate Amino Transferase 22 U/L (14-36); Bilirubin,Total 0.6 mg/dL (0.2-1.3); Blood Urea Nitrogen 5 mg/dL (7-17); Calcium 8.2 mg/dL (8.4-10.2); Carbon Dioxide 29 mmol/L (22-30); Chloride 101 mmol/L (98-107); Estimated CRCL calculation 103 ml/min; Estimated Glomerular Filt Rate > 60; Glucose 101 mg/dL (65-105); Potassium 2.9 mmol/L (3.4-5.0); Sodium 134 mmol/L (137-145)
[2020-11-12 09:02] VITALS: O2SAT 96
--- NOTE | 2020-11-12 09:16 | PM.GYNPNOP ---
CLINICAL TRIALS SPECIALIST - A/P Assessment and plan (1) Postoperative abscess: Code(s): T81.49XA - Infection following a procedure, other surgical site, initial encounter Status: Acute Assessment and Plan: 1. Continue with current antibiotics until culture and sensitivity is complete. 2. Increase diet as tolerated. 3. Replace potassium with potassium chloride orally. We will recheck daily until normal. 4. Will continue IV antibiotics another 24-48 hours irregular prior to switching to oral antibiotics assuming continued improvement. Time Spent With Patient Time: Total time spent is greater than 50% in coordination of care (as documented) at patient's floor/unit and/or counseling patient: Time with patient: less than 15 minutes CLINICAL TRIALS SPECIALIST- PN:Bassam Post-Op Subjective Date/time seen: 11/12/20 09:16 Patient states that she is feeling significantly improved today. Liquid diet is being tolerated without any issues and has good bowel function though has not had a bowel movement. States that pain in the right lower quadrant has again markedly improved from yesterday. Exam Const: General: cooperative and healthy appearing GI: Inspection: normal to inspection and incision (All incisions without evidence of hematoma erythema and also nontender) GI Palp: Yes Soft to palpation (No guarding or rebound. No tenderness as well.) Auscultation: normal bowel sounds CLINICAL TRIALS SPECIALIST - PN: Obj Data Vital Signs Vital Signs: Vital Signs - 24 hr 11/11/20 13:46 11/11/20 19:29 11/12/20 04:11 Temperature 36.5 C 36.8 C 37.0 C Pulse Rate 110 H 110 H 115 H Respiratory Rate 16 18 18 Blood Pressure 121/76 124/67 147/61 H Pulse Oximetry 94 95 98 11/12/20 09:02 Temperature Pulse Rate Respiratory Rate Blood Pressure Pulse Oximetry 96 Intake/Output Intake/Output: Intake & Output 11/09/20 11/10/20 11/11/20 11/12/20 23:59 23:59 23:59 23:59 Intake Total 2590 3570 500 Output Total 765 2935 730 Balance 2100 635 -230 Meds/Results Medications: Active Medications Generic Name Dose Route Start Last Admin Trade Name Freq PRN Reason Stop Dose Admin Acetaminophen 650 mg 11/10/20 09:24 11/11/20 09:12 Acetaminophen 325 Mg Tablet PO 650 mg ONCE PRN Administration Pain Rated 1-3 Docusate Sodium 100 mg 11/10/20 17:00 11/11/20 17:11 Docusate Sodium 100 Mg Capsule PO 100 mg BID ИРИНА Administration Hydromorphone HCl 0.5 mg 11/10/20 09:24 11/12/20 05:25 Hydromorphone Hcl Inj (*Crx) 1 Mg/Ml Syr IV PUSH 0.5 mg Q2H PRN Administration break through pain Ceftriaxone Sodium/Dextrose 1 gm in 50 mls @ 100 mls/hr 11/11/20 06:00 11/12/20 05:55 Rocephin 1 Gm/D5w 50 Ml IVPB Infused Q24H ИРИНА Infusion Lactated Ringer's 1,000 mls @ 125 mls/hr 11/10/20 08:50 11/12/20 06:02 Lr - Lactated Ringers Iv IV CONT 125 mls/hr .Q8H ИРИНА Infusion Aztreonam 2 gm/ Dextrose 100 mls @ 200 mls/hr 11/10/20 12:00 11/12/20 04:44 IVPB Infused Q8H ИРИНА Infusion Clindamycin Phosphate 900 mg in 50 mls @ 50 mls/hr 11/10/20 10:00 11/12/20 02:39 Cleocin 900 Mg/D5w 50 Ml IVPB Infused Q8H ИРИНА Infusion Ondansetron HCl 4 mg 11/10/20 09:20 Ondansetron Inj 4 Mg/2 Ml Vial IV PUSH Q6H PRN Nausea Oxycodone/Acetaminophen 1 tablet 11/10/20 09:24 11/11/20 23:07 Oxycodone/Acetaminophen (*Crx) 5-325 Mg Tablet PO 1 tablet Q4H PRN Administration Pain Rated 4-6 Oxycodone/Acetaminophen 2 tablet 11/10/20 09:24 11/12/20 01:44 Oxycodone/Acetaminophen (*Crx) 5-325 Mg Tablet PO 2 tablet Q6H PRN Administration Pain Rated 7-10 Simethicone 80 mg 11/10/20 09:20 Simethicone 80 Mg Tab.Chew PO Q2H PRN Gas Topiramate 25 mg 11/11/20 00:45 11/11/20 20:03 Topiramate 25 Mg Tablet PO 25 mg Q12HR ИРИНА Administration Radiology Results: ITS Impressions Chest/Abdomen/Pelvis CTA 11/10/20 10:43 IMPRESSION: 1. Loculated fluid collection in the right lower quad
[2020-11-12] MEDS: POTASSIUM CHLORIDE 20 MEQ PACKET (FOR LIQUID) PO ×2 (09:34→17:25)
[2020-11-12] MEDS: DOCUSATE SODIUM 100 MG CAPSULE PO ×2 (09:34→17:25)
[2020-11-12] MEDS: TOPIRAMATE 25 MG TABLET PO ×2 (09:34→20:08)
[2020-11-12 14:00] VITALS: BP 138/68; PULSE 102; RESP 16; TEMP 37.2; O2SAT 98
[2020-11-12 21:23] VITALS: BP 136/67; PULSE 108; RESP 18; TEMP 37; O2SAT 97
[2020-11-13] MEDS: CLINDAMYCIN 900 MG/D5W 50 ML 900 MG/50 ML PIGGYBACK 50 MG IVPB ×3 (02:18→17:04)
[2020-11-13] MEDS: oxyCODONE/ACETAMINOPHEN (*CRX) 5-325 MG TABLET 2 TABLET PO ×3 (02:20→19:50)
[2020-11-13] MEDS: AZTREONAM 2 GM in DEXTROSE 5% 100 ML IVPB ×3 (03:25→19:44)
[2020-11-13 05:50] LABS: Basophils Percent Auto 0.3 % (0.2-1.2); Eosinophils Absolute Auto 0.2 K/mm3 (0-0.3); Eosinophils Percent Auto 1.8 % (0-4.4); Hematocrit 28.5 % (37.0-47.0); Hemoglobin 9.2 g/dL (12.0-15.0); Immature Granulocyte Absolute 0.36 K/mm3 (0.00-0.031); Immature Granulocyte Percent A 2.9 % (0-0.5); Lymphocytes Absolute Auto 1.25 K/mm3 (0.9-3.2); Lymphocytes Percent Auto 10.1 % (18.3-44.2); Mean Corpuscular HGB Conc 32.3 g/dl (32-36); Mean Corpuscular Hemoglobin 27.1 pg (26-34); Mean Corpuscular Volume 84.1 fl (80-100); Mean Platelet Volume 9.9 fl (7.4-10.4); Monocytes Absolute Auto 1.3 K/mm3 (0.1-0.6); Monocytes Percent Auto 10.6 % (2.6-8.5); Neutrophils Absolute Auto 9.2 K/mm3 (1.3-6.7); Neutrophils Percent Auto 74.3 % (45.5-73.1); Platelet Count Result 424 k/mm3 (150-375); Red Blood Count 3.39 M/mm3 (4.2-5.4); Red Cell Distribution Width 14.6 % (11.5-14.5); White Blood Count 12.4 K/mm3 (4.5-10.0)
[2020-11-13] MEDS: HYDROmorphone HCL INJ (*CRX) 1 MG/ML SYR 0.5 MG IV PUSH ×3 (05:55→16:59)
[2020-11-13 06:00] VITALS: BP 134/67; PULSE 85; RESP 18; TEMP 36.9; O2SAT 95
[2020-11-13 06:13] LABS: Alanine Aminotransferase 20 U/L (4-35); Alkaline Phosphatase 105 U/L (38-126); Anion Gap 7 mmol/L (8-16); Aspartate Amino Transferase 25 U/L (14-36); Bilirubin,Total 0.6 mg/dL (0.2-1.3); Blood Urea Nitrogen 6 mg/dL (7-17); Calcium 7.9 mg/dL (8.4-10.2); Carbon Dioxide 25 mmol/L (22-30); Chloride 104 mmol/L (98-107); Estimated CRCL calculation 115 ml/min; Estimated Glomerular Filt Rate > 60; Glucose 111 mg/dL (65-105); Sodium 136 mmol/L (137-145)
--- NOTE | 2020-11-13 06:54 | PM.GYNPNOP ---
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 Likely convert to po antibiotics tomorrow after ID/sensitivity. (2) Hypokalemia: Code(s): E87.6 - Hypokalemia Status: Acute Assessment and Plan: Continue oral replacement. Time Spent With Patient Time: Total time spent is greater than 50% in coordination of care (as documented) at patient's floor/unit and/or counseling patient: Time with patient: 15 - 25 minutes RAILWAY HEAD TENDER- PN:Bassam Post-Op Subjective Date/time seen: 11/13/20 06:54 Tolerated regular diet. Sore in drain area, otherwise no pain. Ambulating without difficulty. Exam Const: General: cooperative and healthy appearing GI: Inspection: normal to inspection and incision (all healing well) GI Palp: Yes Soft to palpation Auscultation: normal bowel sounds RAILWAY HEAD TENDER - PN: Obj Data Vital Signs Vital Signs: Vital Signs - 24 hr 11/12/20 09:02 11/12/20 14:00 11/12/20 21:23 Temperature 37.2 C 37.0 C Pulse Rate 102 H 108 H Respiratory Rate 16 18 Blood Pressure 138/68 136/67 Pulse Oximetry 96 98 97 11/13/20 06:00 Temperature 36.9 C Pulse Rate 85 Respiratory Rate 18 Blood Pressure 134/67 Pulse Oximetry 95 Intake/Output Intake/Output: Intake & Output 11/10/20 11/11/20 11/12/20 11/13/20 23:59 23:59 23:59 23:59 Intake Total 2590 3570 1280 650 Output Total 490 2935 1985 750 Balance 2100 635 -705 -100 Meds/Results Medications: Active Medications Generic Name Dose Route Start Last Admin Trade Name Freq PRN Reason Stop Dose Admin Acetaminophen 650 mg 11/10/20 09:24 11/11/20 09:12 Acetaminophen 325 Mg Tablet PO 650 mg ONCE PRN Administration Pain Rated 1-3 Docusate Sodium 100 mg 11/10/20 17:00 11/12/20 17:25 Docusate Sodium 100 Mg Capsule PO 100 mg BID ИРИНА Administration Hydromorphone HCl 0.5 mg 11/10/20 09:24 11/13/20 05:55 Hydromorphone Hcl Inj (*Crx) 1 Mg/Ml Syr IV PUSH 0.5 mg Q2H PRN Administration break through pain Ceftriaxone Sodium/Dextrose 1 gm in 50 mls @ 100 mls/hr 11/11/20 06:00 11/13/20 05:59 Rocephin 1 Gm/D5w 50 Ml IVPB Infused Q24H ИРИНА Infusion Aztreonam 2 gm/ Dextrose 100 mls @ 200 mls/hr 11/10/20 12:00 11/13/20 03:55 IVPB Infused Q8H ИРИНА Infusion Clindamycin Phosphate 900 mg in 50 mls @ 50 mls/hr 11/10/20 10:00 11/13/20 03:18 Cleocin 900 Mg/D5w 50 Ml IVPB Infused Q8H ИРИНА Infusion Ondansetron HCl 4 mg 11/10/20 09:20 Ondansetron Inj 4 Mg/2 Ml Vial IV PUSH Q6H PRN Nausea Oxycodone/Acetaminophen 1 tablet 11/10/20 09:24 11/11/20 23:07 Oxycodone/Acetaminophen (*Crx) 5-325 Mg Tablet PO 1 tablet Q4H PRN Administration Pain Rated 4-6 Oxycodone/Acetaminophen 2 tablet 11/10/20 09:24 11/13/20 02:20 Oxycodone/Acetaminophen (*Crx) 5-325 Mg Tablet PO 2 tablet Q6H PRN Administration Pain Rated 7-10 Potassium Chloride 20 meq 11/12/20 09:00 11/12/20 17:25 Potassium Chloride 20 Meq Packet (For Liquid) PO 20 meq BID ИРИНА Administration Simethicone 80 mg 11/10/20 09:20 Simethicone 80 Mg Tab.Chew PO Q2H PRN Gas Topiramate 25 mg 11/11/20 00:45 11/12/20 20:08 Topiramate 25 Mg Tablet PO 25 mg Q12HR ИРИНА Administration Radiology Results: ITS Impressions Chest/Abdomen/Pelvis CTA 11/10/20 10:43 IMPRESSION: 1. Loculated fluid collection in the right lower quadrant and extending into the uterine fossa post recent hysterectomy. Differential would include hematoma/seroma or abscess. 2. No pulmonary embolism through the subsegmental pulmonary arteries with sensitivity decreased in the more peripheral pulmonary arteries due to suboptimal contrast opacification and some respiratory motion. 3. Consolidation in the bilateral lower lobes and small region of grou
[2020-11-13 07:45] VITALS: BP 136/70; PULSE 102; RESP 17; TEMP 36.4; O2SAT 95
[2020-11-13] MEDS: POTASSIUM CHLORIDE 20 MEQ PACKET (FOR LIQUID) PO ×2 (09:58→17:00)
[2020-11-13] MEDS: TOPIRAMATE 25 MG TABLET PO ×2 (09:58→20:26)
[2020-11-13] MEDS: DOCUSATE SODIUM 100 MG CAPSULE PO ×2 (09:58→17:00)
[2020-11-13 14:02] VITALS: BP 140/78; PULSE 101; RESP 17; TEMP 36.6; O2SAT 99
--- NOTE | 2020-11-13 14:34 | PC.NURSE ---
On 11/13/20, the student, [Alyson Arboleda ], provided care and completed [facility] documentation on this patient. I have reviewed the student's documentation and agree with the findings.
[2020-11-13 17:37] VITALS: TEMP 37.7
[2020-11-13] MEDS: ACETAMINOPHEN 500 MG TABLET 1000 MG PO (17:37)
[2020-11-13 18:37] VITALS: TEMP 36.8
[2020-11-13 20:37] VITALS: BP 133/62; PULSE 109; RESP 18; TEMP 36.4; O2SAT 99
[2020-11-14] MEDS: CLINDAMYCIN 900 MG/D5W 50 ML 900 MG/50 ML PIGGYBACK 50 MG IVPB ×2 (01:02→10:20)
[2020-11-14] MEDS: HYDROmorphone HCL INJ (*CRX) 1 MG/ML SYR 0.5 MG IV PUSH ×3 (03:57→19:26)
[2020-11-14] MEDS: AZTREONAM 2 GM in DEXTROSE 5% 100 ML IVPB ×2 (03:59→11:26)
[2020-11-14 05:10] VITALS: BP 129/64; PULSE 114; RESP 18; TEMP 36.9; O2SAT 99
[2020-11-14 06:07] LABS: Alanine Aminotransferase 26 U/L (4-35); Albumin Level 3.1 g/dL (3.5-5.1); Alkaline Phosphatase 117 U/L (38-126); Anion Gap 5 mmol/L (8-16); Aspartate Amino Transferase 42 U/L (14-36); Bilirubin,Total 0.5 mg/dL (0.2-1.3); Blood Urea Nitrogen 5 mg/dL (7-17); Calcium 8.1 mg/dL (8.4-10.2); Carbon Dioxide 25 mmol/L (22-30); Chloride 105 mmol/L (98-107); Estimated CRCL calculation 115 ml/min; Estimated Glomerular Filt Rate > 60; Glucose 117 mg/dL (65-105); Hematocrit 29.1 % (37.0-47.0); Hemoglobin 9.5 g/dL (12.0-15.0); Mean Corpuscular HGB Conc 32.6 g/dl (32-36); Mean Corpuscular Hemoglobin 27.9 pg (26-34); Mean Corpuscular Volume 85.6 fl (80-100); Mean Platelet Volume 9.6 fl (7.4-10.4); Platelet Count Result 479 k/mm3 (150-375); Potassium 3.5 mmol/L (3.4-5.0); Red Cell Distribution Width 14.6 % (11.5-14.5); Sodium 135 mmol/L (137-145)
[2020-11-14 06:57] LABS: Band Neutrophils Percent 4 % (0-6); Hypochromasia 1+ (NORMAL); Lymphocytes Absolute Manual 0.32 K/mm3 (1.1-4.5); Monocytes Absolute Manual 0.48 K/mm3 (0.1-0.90); Monocytes Percent Manual 3 % (3-9); Neutrophils Percent Manual 91 % (46-73); Ovalocytes 1+ (NORMAL); Platelet Estimate Increased (Adequate); Total Cells Counted 100
[2020-11-14] MEDS: TOPIRAMATE 25 MG TABLET PO ×2 (10:20→21:17)
[2020-11-14] MEDS: POTASSIUM CHLORIDE 20 MEQ PACKET (FOR LIQUID) PO (10:21)
[2020-11-14] MEDS: DOCUSATE SODIUM 100 MG CAPSULE PO ×2 (10:21→17:06)
[2020-11-14] MEDS: oxyCODONE/ACETAMINOPHEN (*CRX) 5-325 MG TABLET 2 TABLET PO ×2 (10:27→17:06)
--- NOTE | 2020-11-14 12:29 | PM.GYNPNOP ---
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 WBC elevated again this morning. Will change to oral and continue to monitor. Recheck count in morning, if doing well will d/c home with continued 14d course of ab. (2) Hypokalemia: Code(s): E87.6 - Hypokalemia Status: Acute Assessment and Plan: Resolved. Time Spent With Patient Time: Total time spent is greater than 50% in coordination of care (as documented) at patient's floor/unit and/or counseling patient: Time with patient: less than 15 minutes WAD IMPREGNATOR- PN:Subj Post-Op Subjective Date/time seen: 11/14/20 12:29 Diet/ambulation N. Minimal drainage vaginally this morning. Drain no longer with any output. Denies fever/chills/N/V. WAD IMPREGNATOR - PN: Obj Data Vital Signs Vital Signs: Vital Signs - 24 hr 11/13/20 14:02 11/13/20 17:37 11/13/20 18:37 Temperature 36.6 C 37.7 C H 36.8 C Pulse Rate 101 H Respiratory Rate 17 Blood Pressure 140/78 Pulse Oximetry 99 11/13/20 20:37 11/14/20 05:10 Temperature 36.4 C 36.9 C Pulse Rate 109 H 114 H Respiratory Rate 18 18 Blood Pressure 133/62 129/64 Pulse Oximetry 99 99 Intake/Output Intake/Output: Intake & Output 11/11/20 11/12/20 11/13/20 11/14/20 23:59 23:59 23:59 23:59 Intake Total 3570 1280 1713 1330 Output Total 2935 1985 2850 1550 Balance 635 -705 -1137 -220 Meds/Results Medications: Active Medications Generic Name Dose Route Start Last Admin Trade Name Freq PRN Reason Stop Dose Admin Acetaminophen 1,000 mg 11/13/20 17:28 11/13/20 17:37 Acetaminophen 500 Mg Tablet PO 1,000 mg Q8H PRN Administration Mild Pain (1-3) or Fever Docusate Sodium 100 mg 11/10/20 17:00 11/14/20 10:21 Docusate Sodium 100 Mg Capsule PO 100 mg BID ИРИНА Administration Hydromorphone HCl 0.5 mg 11/10/20 09:24 11/14/20 03:57 Hydromorphone Hcl Inj (*Crx) 1 Mg/Ml Syr IV PUSH 0.5 mg Q2H PRN Administration break through pain Metronidazole 500 mg 11/14/20 14:00 Metronidazole 250 Mg Tablet PO Q8HR [facility] Ondansetron HCl 4 mg 11/10/20 09:20 Ondansetron Inj 4 Mg/2 Ml Vial IV PUSH Q6H PRN Nausea Oxycodone/Acetaminophen 1 tablet 11/10/20 09:24 11/11/20 23:07 Oxycodone/Acetaminophen (*Crx) 5-325 Mg Tablet PO 1 tablet Q4H PRN Administration Pain Rated 4-6 Oxycodone/Acetaminophen 2 tablet 11/10/20 09:24 11/14/20 10:27 Oxycodone/Acetaminophen (*Crx) 5-325 Mg Tablet PO 2 tablet Q6H PRN Administration Pain Rated 7-10 Simethicone 80 mg 11/10/20 09:20 Simethicone 80 Mg Tab.Chew PO Q2H PRN Gas Topiramate 25 mg 11/11/20 00:45 11/14/20 10:20 Topiramate 25 Mg Tablet PO 25 mg Q12HR ИРИНА Administration Trimethoprim/Sulfamethoxazole 1 tab 11/14/20 21:00 Trimethoprim/Sulfamethoxazole 160-800 Mg Ds Tablet PO Q12HR [facility] Radiology Results: ITS Impressions Chest/Abdomen/Pelvis CTA 11/10/20 10:43 IMPRESSION: 1. Loculated fluid collection in the right lower quadrant and extending into the uterine fossa post recent hysterectomy. Differential would include hematoma/seroma or abscess. 2. No pulmonary embolism through the subsegmental pulmonary arteries with sensitivity decreased in the more peripheral pulmonary arteries due to suboptimal contrast opacification and some respiratory motion. 3. Consolidation in the bilateral lower lobes and small region of groundglass opacity in the right upper lobe and favor atelectasis over pneumonia. 4. Diffuse hepatic steatosis. 5. Mild cardiomegaly. Catheter Placement CT 11/10/20 16:09 IMPRESSION: 1. Successful CT-guided pelvic peritoneal abscess drainage. 2. 10 mL fluid was sent for aerobic and anaerobic cultures. 3. The catheter will be managed by Dr. Saeed. Labs CBC & Chem
--- NOTE | 2020-11-14 13:10 | PC.NURSE ---
Spoke with Dr. Graham. Ok to take out drain.
[2020-11-14] MEDS: metroNIDAZOLE 250 MG TABLET 500 MG PO ×2 (13:59→21:17)
[2020-11-14 14:00] VITALS: BP 132/72; PULSE 97; RESP 16; TEMP 36.2; O2SAT 100
[2020-11-14 20:23] VITALS: BP 116/55; PULSE 104; RESP 18; TEMP 36.3; O2SAT 98
[2020-11-15] MEDS: oxyCODONE/ACETAMINOPHEN (*CRX) 5-325 MG TABLET 2 TABLET PO ×2 (03:09→11:40)
[2020-11-15] MEDS: HYDROmorphone HCL INJ (*CRX) 1 MG/ML SYR 0.5 MG IV PUSH (04:48)
[2020-11-15 05:33] VITALS: BP 108/56; PULSE 93; RESP 17; TEMP 36.1; O2SAT 100
[2020-11-15] MEDS: metroNIDAZOLE 250 MG TABLET 500 MG PO (05:45)
[2020-11-15 06:06] LABS: Hematocrit 29.4 % (37.0-47.0); Hemoglobin 9.6 g/dL (12.0-15.0); Mean Corpuscular HGB Conc 32.7 g/dl (32-36); Mean Corpuscular Hemoglobin 27.5 pg (26-34); Mean Corpuscular Volume 84.2 fl (80-100); Mean Platelet Volume 9.1 fl (7.4-10.4); Platelet Count Result 516 k/mm3 (150-375); Red Blood Count 3.49 M/mm3 (4.2-5.4); Red Cell Distribution Width 14.9 % (11.5-14.5); White Blood Count 16.6 K/mm3 (4.5-10.0)
[2020-11-15 06:12] LABS: Anion Gap 7 mmol/L (8-16); Blood Urea Nitrogen 6 mg/dL (7-17); Calcium 8.5 mg/dL (8.4-10.2); Carbon Dioxide 25 mmol/L (22-30); Chloride 105 mmol/L (98-107); Estimated CRCL calculation 115 ml/min; Estimated Glomerular Filt Rate > 60; Glucose 103 mg/dL (65-105); Potassium 3.7 mmol/L (3.4-5.0); Sodium 137 mmol/L (137-145)
[2020-11-15 06:43] LABS: Eosinophils Absolute Manual 0.16 K/mm3 (0.02-0.5); Eosinophils Percent Manual 1 % (0-4); Lymphocytes Absolute Manual 2.65 K/mm3 (1.1-4.5); Monocytes Absolute Manual 0.66 K/mm3 (0.1-0.90); Monocytes Percent Manual 4 % (3-9); Neutrophils Percent Manual 79 % (46-73); Platelet Estimate Increased (Adequate); Total Cells Counted 100
[2020-11-15 06:45] LABS: Hypochromasia 2+ (NORMAL); Ovalocytes 1+ (NORMAL)
[2020-11-15 06:46] LABS: Burr Cells 1+ (NORMAL)
--- NOTE | 2020-11-15 08:22 | PM.GYNPNOP ---
LICENSED EMBALMER SUPERVISOR - A/P Assessment and plan (1) Postoperative abscess: Code(s): T81.49XA - Infection following a procedure, other surgical site, initial encounter Status: Acute Assessment and Plan: At this point the only thing of concern is her continued elevated white blood cell count. Clinically very stable and doing very well. Will repeat this level later today and if trending down will a discharge with follow-up in 48-72 hours in the office. If continued elevation will consider hospitalist and/or infectious disease consultation as unsure at this point other than her continued abscess why she would be continuing with elevated white blood cell count elevation. I have discussed this with the patient she states good understanding and we will proceed as noted. Time Spent With Patient Time: Total time spent is greater than 50% in coordination of care (as documented) at patient's floor/unit and/or counseling patient: Time with patient: 15 - 25 minutes LICENSED EMBALMER SUPERVISOR- PN:Bassam Post-Op Subjective Date/time seen: 11/15/20 08:22 Mrs. Wang is doing very well today. She is no longer having any vaginal drainage which she had last night. Has had multiple normal bowel movements as well. Is tolerating regular diet and activity without difficulty. She has been afebrile incisions she strongly desires to go home today. Exam GI: Inspection: normal to inspection and other (Incisions well healed) Auscultation: normal bowel sounds LICENSED EMBALMER SUPERVISOR - PN: Obj Data Vital Signs Vital Signs: Vital Signs - 24 hr 11/14/20 14:00 11/14/20 20:23 11/15/20 05:33 Temperature 36.2 C L 36.3 C L 36.1 C L Pulse Rate 97 104 H 93 Respiratory Rate 16 18 17 Blood Pressure 132/72 116/55 L 108/56 L Pulse Oximetry 100 98 100 Intake/Output Intake/Output: Intake & Output 11/12/20 11/13/20 11/14/20 11/15/20 23:59 23:59 23:59 23:59 Intake Total 1280 1713 1730 440 Output Total [address] [facility] -705 -1137 -520 -60 Meds/Results Medications: Active Medications Generic Name Dose Route Start Last Admin Trade Name Freq PRN Reason Stop Dose Admin Acetaminophen 1,000 mg 11/13/20 17:28 11/13/20 17:37 Acetaminophen 500 Mg Tablet PO 1,000 mg Q8H PRN Administration Mild Pain (1-3) or Fever Docusate Sodium 100 mg 11/10/20 17:00 11/14/20 17:06 Docusate Sodium 100 Mg Capsule PO 100 mg BID ИРИНА Administration Hydromorphone HCl 0.5 mg 11/10/20 09:24 11/15/20 04:48 Hydromorphone Hcl Inj (*Crx) 1 Mg/Ml Syr IV PUSH 0.5 mg Q2H PRN Administration break through pain Metronidazole 500 mg 11/14/20 14:00 11/15/20 05:45 Metronidazole 250 Mg Tablet PO 500 mg Q8HR ИРИНА Administration Ondansetron HCl 4 mg 11/10/20 09:20 Ondansetron Inj 4 Mg/2 Ml Vial IV PUSH Q6H PRN Nausea Oxycodone/Acetaminophen 1 tablet 11/10/20 09:24 11/11/20 23:07 Oxycodone/Acetaminophen (*Crx) 5-325 Mg Tablet PO 1 tablet Q4H PRN Administration Pain Rated 4-6 Oxycodone/Acetaminophen 2 tablet 11/10/20 09:24 11/15/20 03:09 Oxycodone/Acetaminophen (*Crx) 5-325 Mg Tablet PO 2 tablet Q6H PRN Administration Pain Rated 7-10 Simethicone 80 mg 11/10/20 09:20 Simethicone 80 Mg Tab.Chew PO Q2H PRN Gas Topiramate 25 mg 11/11/20 00:45 11/14/20 21:17 Topiramate 25 Mg Tablet PO 25 mg Q12HR ИРИНА Administration Trimethoprim/Sulfamethoxazole 1 tab 11/14/20 21:00 11/14/20 21:18 Trimethoprim/Sulfamethoxazole 160-800 Mg Ds Tablet PO 1 tab Q12HR ИРИНА Administration Radiology Results: ITS Impressions Chest/Abdomen/Pelvis CTA 11/10/20 10:43 IMPRESSION: 1. Loculated fluid collection in the right lower quadrant and extending into the uterine fossa post recent hysterectomy. Differential would include hematoma/seroma or abscess. 2. No pulmonary embolism through the subsegmental pulmonary arteries with sensitivity decreased in the more peripheral pulmonary arteries due to suboptimal contrast opa
[2020-11-15] MEDS: DOCUSATE SODIUM 100 MG CAPSULE PO (08:41)
[2020-11-15] MEDS: TOPIRAMATE 25 MG TABLET PO (08:41)
[2020-11-15 11:53] LABS: Hematocrit 29.5 % (37.0-47.0); Hemoglobin 9.6 g/dL (12.0-15.0); Mean Corpuscular HGB Conc 32.5 g/dl (32-36); Mean Corpuscular Hemoglobin 27.3 pg (26-34); Mean Corpuscular Volume 83.8 fl (80-100); Mean Platelet Volume 9.3 fl (7.4-10.4); Platelet Count Result 542 k/mm3 (150-375); Red Blood Count 3.52 M/mm3 (4.2-5.4); Red Cell Distribution Width 14.7 % (11.5-14.5); White Blood Count 16.4 K/mm3 (4.5-10.0)
--- NOTE | 2020-11-15 13:01 | PM.DS ---
DS: Admitting Diagnosis Admitting Diagnosis Admitting Diagnosis: postoperative pelvic abscess DS: Summary Hospital Course Hospital Course: Admitted with post operative pelvic abscess. Placed on ab and had drain placed by IR. Has responded well and has been afebrile and without any sig sx for 48h. Still with mild elevation of WBC though clinically doing well and no other concerns. She will return office 72h for update, also given parameters to call if any other issues. Time Spent with Patient Time attestation: Total time spent providing and/or coordinating discharge services: DS: Data Data Completed and Pending Labs on day of discharge: Labs from last 24 hours 11/15/20 11/15/20 11/15/20 11:36 05:34 05:34 WBC 16.4 H 16.6 H RBC 3.52 L 3.49 L Hgb 9.6 L 9.6 L Hct 29.5 L 29.4 L MCV 83.8 84.2 MCH 27.3 27.5 MCHC 32.5 32.7 RDW 14.7 H 14.9 H Plt Count 542 H 516 H MPV 9.3 9.1 Immature Gran % (Auto) Not Reportable Neut % (Auto) Not Reportable Lymph % (Auto) Not Reportable [place] % (Auto) Not Reportable Eos % (Auto) Not Reportable Baso % (Auto) Not Reportable Lymph # (Auto) Not Reportable [place] # (Auto) Not Reportable Eos # (Auto) Not Reportable Baso # (Auto) Not Reportable Abs Immat Gran (auto) Not Reportable Absolute Neuts (auto) Not Reportable Absolute Nucleated RBC Not Reportable Total Counted 100 Neutrophils % (Manual) 79 H Lymphocytes % (Manual) 16.0 L Monocytes % (Manual) 4 Eosinophils % (Manual) 1 Nucleated RBC % Not Reportable Abs Lymphs (Manual) 2.65 Abs Monocytes (Manual) 0.66 Absolute Eos (Manual) 0.16 Platelet Estimate Increased Hypochromasia 2+ Ovalocytes 1+ Amber Cells 1+ Sodium 137 Potassium 3.7 Chloride 105 Carbon Dioxide 25 Anion Gap 7 L BUN 6 L Creatinine 0.80 Estim Creat Clear Calc 115 Estimated GFR > 60 Glucose 103 Calcium 8.5 Preliminary micro results at discharge 11/10/20 16:12 Anaerobic Culture - Preliminary Abscess Aerobic Culture - Preliminary Gram negative bacilli isolated 11/10/20 05:30 Blood Culture - Preliminary Blood 11/10/20 05:12 Blood Culture - Preliminary Blood Discharge Plan Discharge Attending physician on discharge: Tristan Graham Discharging Clinician: Tristan Graham Patient Disposition: Home, Self-Care Activity: may shower, may drive after 2 weeks, as tolerated and pelvic rest Diet: as tolerated Wound Care Instructions: incision open to air Discharge Instructions: Call office Wednesday with status update. Patient Instructions: Antibiotic Form, Pain Management (DC), Sepsis (DC), Abscess (GEN) Stand Alone Forms: General Discharge Information Follow-up/Referrals: Tristan Graham MD [Physician] - 2 Weeks Discharge Medications: New metronidazole 250 mg Tablet 500 mg PO Q12H Qty: 28 RF: 0 sulfamethoxazole-trimethoprim 800-160 mg Tablet 1 tab PO Q12HR Qty: 28 RF: 0 No Action No Home Medications RF: 0 Date of admission: 11/10/20 09:19 Primary Care Provider: Cassie,Kurtis Bejarano Admitting Provider: Inocencia Saeed Attending physician on admission: Inocencia Saeed Condition: Stable
== END 2020-11-15 14:00 | disposition home or self-care (01) | DRG 721 ==
LOC: ANHED 08:13 → ANH3MED 18:24
PROVIDERS: Emergency Medicine; Admitting Provider Obstetrics & Gynecology; Emergency Provider General Practice; PCP Family Medicine; Visit Provider Obstetrics & Gynecology
DX: T81.49XA Infection following a procedure, other surgical site, initial encounter (principal); N73.9 Female pelvic inflammatory disease, unspecified; G89.18 Other acute postprocedural pain; E87.6 Hypokalemia; F17.210 Nicotine dependence, cigarettes, uncomplicated; Z86.718 Personal history of other venous thrombosis and embolism; Z90.710 Acquired absence of both cervix and uterus
CPT/HCPCS: 36415; 71275; 74177; 75989; 80048; 80053; 81001; 83605; 84484; 85025; 85027; 85610; 85730; 86140; 87040; 87070; 87075; 87076; 87077; 87086; 87088; 87185; 87186; 87205; 93005; 96361; 96365; 96375; 99285; A9270; C1729; C1769; J0696; J1170; J1885; J2250; J2405; J3010; J7120; Q9967

== ENCOUNTER 2020-11-21 15:01 | Inpatient (IN) | payer OTHER, SELFPAY ==
[2020-11-21] VITALS (8 sets, daily range): BP systolic 104–130; BP diastolic 58–84; PULSE 81–111; RESP 14–28; TEMP 36.1–36.4; O2SAT 100; BMI 43.2
--- NOTE | ~2020-11-21 | CT_ITS ---
EXAMINATION: CT abdomen pelvis w con INDICATION: Vaginal bleeding posthysterectomy TECHNIQUE: Computed tomographic images of the abdomen and pelvis were obtained after the administrati on of 100 cc of Omnipaque 350 intravenous contrast. The dose-length product (DLP) was 1399.41 mGy-cm. Automated exposure control and iterative reconstruction technique were employed. COMPARISON: 11/10/2020 FINDINGS: The lung bases are clear. The heart size is normal. The liver is diffusely low in attenuati on when compared with the spleen, consistent with hepatic steatosis. The spleen, pancreas, gallbladde r, and adrenal glands are normal. The kidneys are unremarkable. There are changes of hysterectomy. Th ere is an approximately 7.5 x 7.6 x 15.1 cm recurrent pelvic abscess. Part of the abscess tracks cran ially into the right retroperitoneum. The previously inserted abscess drain has been removed. There i s a 2.5 x 1.9 cm abscess adjacent to the terminal ileum in the right lower quadrant on image 117. The abscess also extends into the left adnexal region. There appears to be debris within the vagina. The visualized osseous structures are unremarkable. IMPRESSION: 1. Large recurrent pelvic abscess as detailed above. 2. Diffuse hepatic steatosis. Reviewed, dictated and finalized at location A. HAND
--- NOTE | ~2020-11-21 | CT_ITS ---
EXAMINATION: CT guide absc cath placement DATE: 11/22/2020 13:06 INDICATION: Pelvic abscess. TECHNIQUE: The procedure including the risks, benefits, and alternatives was discussed with the patie nt. Risks discussed included bleeding and infection. The patient understood the risks and benefits an d agreed to proceed. The patient was confirmed to be receiving appropriate antibiotic coverage. The skin overlying the abdomen was prepped and draped in usual sterile fashion. Anesthetic was administe red with 1% lidocaine subcutaneously. Moderate sedation was achieved with 2 mg Versed IV and 150 mcg fentanyl IV. An 18 gauge trochar needle was inserted into the pelvic abscess with CT guidance. The ne edle was exchanged over a wire for 5 Niuean, 7 Niuean, and 9 Niuean dilators and then for an 8.5 Fren ch pigtail catheter. The catheter was stitched to the skin, and a sterile dressing was applied. The m A was adjusted according to patient size. Iterative reconstruction technique was employed. The dose-l ength product was 600.93 mGy-cm. There were no immediate complications. FINDINGS: CT images demonstrate the catheter within the fluid collection. 2 mL fluid was aspirated fo r testing. IMPRESSION: 1. Successful CT-guided abscess drainage. 2. 2 mL dark red, opaque fluid was sent for aerobic and anaerobic cultures. Reviewed, dictated and finalized at location A. ER PROCESS CHEESE
[2020-11-21 15:28] LABS: Basophils Percent Auto 0.3 % (0.2-1.2); Eosinophils Absolute Auto 0.1 K/mm3 (0-0.3); Eosinophils Percent Auto 0.7 % (0-4.4); Hematocrit 35.2 % (37.0-47.0); Hemoglobin 11.3 g/dL (12.0-15.0); Immature Granulocyte Absolute 0.12 K/mm3 (0.00-0.031); Immature Granulocyte Percent A 1.3 % (0-0.5); Lymphocytes Absolute Auto 3.05 K/mm3 (0.9-3.2); Lymphocytes Percent Auto 33.9 % (18.3-44.2); Mean Corpuscular HGB Conc 32.1 g/dl (32-36); Mean Corpuscular Hemoglobin 27.4 pg (26-34); Mean Corpuscular Volume 85.4 fl (80-100); Mean Platelet Volume 8.7 fl (7.4-10.4); Monocytes Absolute Auto 0.6 K/mm3 (0.1-0.6); Neutrophils Absolute Auto 5.1 K/mm3 (1.3-6.7); Neutrophils Percent Auto 56.8 % (45.5-73.1); Platelet Count Result 831 k/mm3 (150-375); Red Blood Count 4.12 M/mm3 (4.2-5.4); Red Cell Distribution Width 14.6 % (11.5-14.5)
[2020-11-21 15:41] LABS: Alanine Aminotransferase 30 U/L (4-35); Albumin Level 3.9 g/dL (3.5-5.1); Alkaline Phosphatase 93 U/L (38-126); Anion Gap 11 mmol/L (8-16); Aspartate Amino Transferase 39 U/L (14-36); Bilirubin,Total 0.3 mg/dL (0.2-1.3); Blood Urea Nitrogen 7 mg/dL (7-17); Calcium 8.8 mg/dL (8.4-10.2); Carbon Dioxide 22 mmol/L (22-30); Chloride 102 mmol/L (98-107); Estimated CRCL calculation 88 ml/min; Estimated Glomerular Filt Rate > 60; Glucose 148 mg/dL (65-105); Potassium 3.9 mmol/L (3.4-5.0); Sodium 135 mmol/L (137-145)
[2020-11-21] MEDS: fentaNYL CITRATE INJ (*CRX) 100 MCG/2 ML VIAL 50 MCG IV PUSH ×2 (16:54→17:51)
[2020-11-21] MEDS: SODIUM CHLORIDE 0.9% IV 1,000 ML 150 ML IV CONT (17:25)
--- NOTE | 2020-11-21 17:46 | ED.ABDPAIN ---
HPI - Abdominal Pain General Chief Complaint: Vaginal Bleeding Stated Complaint: post hyst bleeding and pain Time Seen by Provider: 11/21/20 16:21 Source: patient and family Mode of arrival: ambulatory Limitations: no limitations History of Present Illness HPI narrative: 35-year-old with a history of DVT, migraines, s/p hysterectomy later developed pelvic abscess here with complaints of having vaginal bleeding and lower abdominal pain. Patient states that she was discharged few days ago with oral antibiotic started having bleeding again since this morning. She denies any lightheadedness or dizziness she said that she has been bleeding quite heavy. She states that she called Dr. Mayer for this morning and was advised to come to the ER for further evaluation. She presently denies any fever or chills no history of shortness of breath or cough. MD elicited complaint: abdominal pain Onset (ago): day(s) (1) Pain Consistency: constant Location: pelvis Severity: moderate Quality: cramping Radiation: none Migration to: no migration Exacerbating factors: nothing Relieving factors: nothing Related Data Allergies Allergy/AdvReac Type Severity Reaction Status Date / Time morphine Allergy Unknown Unknown Verified 11/10/20 08:34 peanut Allergy Unknown Unknown Verified 11/10/20 08:34 Penicillins Allergy Unknown Unknown Verified 11/10/20 08:34 Review of Systems Review of Systems: All systems reviewed & are unremarkable except as noted in HPI and below Constitutional: Constitutional: Reports no additional constitutional complaints Eyes: Eyes: Reports no additional eye complaints ENT: Reports system reviewed and no additional complaints, except as documented Cardiovascular: Cardiovascular: Reports no additional cardiovascular complaints Respiratory: Respiratory: Reports no additional respiratory complaints Gastrointestinal: Gastrointestinal: Reports as per HPI Genitourinary: Genitourinary: Reports as per HPI Neurologic: Reports system reviewed and no additional complaints, except as documented Endocrine: Endocrine: Reports no additional endocrine complaints [facility] Past Medical History Medical History (Updated 11/21/20 @ 17:53 by Esvin Fang MD) Anemia Anxiety DVT (deep venous thrombosis) Migraine headache Uterine fibroid UTI (urinary tract infection) Surgical History Surgical History (Updated 11/21/20 @ 17:51 by Esvin Fang MD) H/O tubal ligation Previous section Family History Family History Father Diabetes mellitus Hypertension Social History Social History Smoking packs per day: 0.5 Smoking cigarettes per day: 10.0 Years smoked: 15 Smoking pack-years: 7.50 Smoking status: Current every day smoker Tobacco type: cigarettes Alcohol intake: current Substance use: former Substance use type: marijuana Other substance usage details: Drinks one glass of wine about every 3 months. Gender identity (if verbalized by the patient): Female Spiritual care concerns: No Exam Narrative: Exam Narrative: GENERAL: Well-appearing, well-nourished, and in no acute distress. HEAD: Normocephalic, atraumatic. EYES: PERRLA and EOMI. NECK: Supple. CHEST: Clear to auscultation. No respiratory distress. HEART: Regular rate and rhythm. No murmur heard. Normal peripheral pulses. ABDOMEN: Soft, mild lower abdominal tenderness Vaginal exam shows moderate amount of blood in the vaginal vault, tender on examination EXTREMITIES: Normal range of motion. No edema. SKIN: Warm, dry, no rash. NEURO: No focal deficits. Alert and oriented x3. PSYCH: Normal mood and affect. Course Course Emergency Course: Inform Dr. Saeed is covering for Dr. Graham who came down to evaluate the patient, discussed the CT findings with her she will be admitting at her service for IV antibiotics and for further man
--- NOTE | 2020-11-21 18:47 | PC.NURSE ---
This patient, Lyudmila Wooten, was admitted to 2 Medical Room 259-01. Patient/family oriented to hospital policies and general routines including ID bracelet, bed and alarms, visiting hours, pain management, procedures, bathroom and other care routines, personal items, smoking policy, room service/diet, and visiting hours. Information on how to activate the Rapid Response Team has been discussed. Patient/Family are encouraged to report perceived risks to care and to ask questions if they do not understand what they are told or what they should do.
--- NOTE | 2020-11-21 18:50 | PM.IMHP ---
H&P: HPI History of Present Illness Date/Time: 11/21/20 18:50 Chief Complaint: vaginal bleeding Narrative: Lyudmila Wooten is a 35 year old female who is s/p RA-TLH on 11/07/20 which was complicated by hospital readmit on 11/10/20 due to sepsis from post-hysterectomy pelvic abscess. IR drain was placed on HD#1; abscess culture grew bacteroides and e. coli. She was started on azetronam and clindamycin; transitioned to flagyl/ceftriaxone. She was discharged home on 11/15/20 on bactrim and metronidazole. She was doing well and reports compliance with her PO antibiotics; tolerating regular diet, regular BMs, no vaginal discharge/bleeding/fevers. However, today, when using the restroom, began having significant vaginal bleeding. In the ER, hgb had noted to have increased from discharge and was 11.7 and WBC had trended down to 9. Vitals were stable and she was afebrile. She was noted to have significant vaginal bleeding with pelvic cramping. Repeat CT scan showed recurrent/enlarging pelvic abscess measuring 7.5 x 7.6 x 15.1cm with tracking to the retroperitoneum and another small loculated abscess near the terminal ileum. She reports passing flatus, BM, voiding w/o issue. No fever, NIEVES, vision changes, CP, nausea, vomiting. Review of Systems Review of Systems: All systems reviewed & are unremarkable except as noted in HPI and below (HPI) PMFSH Past Medical History Medical History Anemia Anxiety DVT (deep venous thrombosis) Migraine headache Uterine fibroid UTI (urinary tract infection) Surgical History Surgical History H/O tubal ligation Previous section Family History Family History Father Diabetes mellitus Hypertension Mother History of blood clots Cerebrovascular accident Social History Social History Smoking packs per day: 0.5 Smoking cigarettes per day: 10.0 Years smoked: 15 Smoking pack-years: 7.50 Smoking status: Former smoker Tobacco type: cigarettes Alcohol intake: never Substance use: former Substance use type: marijuana Other substance usage details: Drinks one glass of wine about every 3 months. Last use: 05/2020 Gender identity (if verbalized by the patient): Female Sexual Orientation (if Verbalized by the Patient): Straight or Heterosexual Spiritual care concerns: No Meds Home Medications and Allergies Home Medications Medication Instructions Recorded Confirmed Type metronidazole 500 mg PO Q12H #28 tablet 11/15/20 Rx sulfamethoxazole-trimethoprim 1 tab PO Q12HR #28 tablet 11/15/20 Rx Allergies Allergy/AdvReac Type Severity Reaction Status Date / Time morphine Allergy Unknown Unknown Verified 11/10/20 08:34 peanut Allergy Unknown Unknown Verified 11/10/20 08:34 Penicillins Allergy Unknown Unknown Verified 11/10/20 08:34 Vital Signs Vital Signs - 24 hr 11/21/20 15:04 11/21/20 15:18 11/21/20 16:21 Temperature 36.4 C L Pulse Rate 111 H 99 105 H Respiratory Rate 16 23 H 28 H Blood Pressure 112/66 113/72 104/64 Pulse Oximetry 100 100 100 11/21/20 17:47 11/21/20 18:23 11/21/20 18:27 Temperature Pulse Rate 81 90 95 Respiratory Rate 18 14 19 Blood Pressure 130/84 125/72 125/72 Pulse Oximetry 100 100 100 Exam Const: General: cooperative, comfortable and no acute distress Resp: Effort & Inspection: normal respiratory effort and able to speak in complete sentences Cardio: Rate: regular rate GI: Inspection: incision (healing w/o signs of infection) and obesity GI Palp: Yes Soft to palpation : Other: small orange sized clot in vaginal vault initially w/ ~15cc of blood on pad; on palpation ~2cm cuff defect palpated slightly to the left of the midline. On speculum, exam, no active bleed, pt did not fully tolerate ex
--- NOTE | 2020-11-21 19:30 | WPDHPUPDATE1 ---
History and Physical Update Update Date/Time: 11/21/20 19:30 History and Physical has been reviewed, including an updated exam of the patient. There are NO changes in the patient's condition. Risks, benefits, and alternatives have been discussed and questions answered. Patient agrees to proceed with procedure.
[2020-11-21] MEDS: oxyCODONE/ACETAMINOPHEN (*CRX) 5-325 MG TABLET 2 TABLET PO (19:31)
[2020-11-21] MEDS: metroNIDAZOLE 500 MG/ISO 100ML 500 MG/100 ML BAG 100 MG IVPB (19:33)
[2020-11-21] MEDS: SODIUM CHLORIDE 0.9% IV 1,000 ML 100 ML IV CONT (20:44)
[2020-11-22] VITALS (25 sets, daily range): BP systolic 101–142; BP diastolic 45–85; PULSE 74–109; RESP 13–23; TEMP 36–37.6; O2SAT 98–100
[2020-11-22] MEDS: metroNIDAZOLE 500 MG/ISO 100ML 500 MG/100 ML BAG 100 MG IVPB ×3 (01:31→17:16)
[2020-11-22] MEDS: oxyCODONE/ACETAMINOPHEN (*CRX) 5-325 MG TABLET 2 TABLET PO ×2 (01:31→06:26)
[2020-11-22 06:25] LABS: Basophils Percent Auto 0.3 % (0.2-1.2); Eosinophils Percent Auto 0.4 % (0-4.4); Hematocrit 29.6 % (37.0-47.0); Hemoglobin 9.3 g/dL (12.0-15.0); Immature Granulocyte Absolute 0.07 K/mm3 (0.00-0.031); Immature Granulocyte Percent A 0.7 % (0-0.5); Lymphocytes Percent Auto 24.3 % (18.3-44.2); Mean Corpuscular HGB Conc 31.4 g/dl (32-36); Mean Corpuscular Hemoglobin 27.4 pg (26-34); Mean Corpuscular Volume 87.1 fl (80-100); Mean Platelet Volume 9.2 fl (7.4-10.4); Monocytes Absolute Auto 0.8 K/mm3 (0.1-0.6); Monocytes Percent Auto 7.5 % (2.6-8.5); Neutrophils Absolute Auto 6.9 K/mm3 (1.3-6.7); Neutrophils Percent Auto 66.8 % (45.5-73.1); Platelet Count Result 719 k/mm3 (150-375); White Blood Count 10.3 K/mm3 (4.5-10.0)
[2020-11-22] MEDS: ONDANSETRON HCL ODT 4 MG TABLET PO (06:28)
[2020-11-22 06:30] LABS: Anion Gap 6 mmol/L (8-16); Blood Urea Nitrogen 7 mg/dL (7-17); Calcium 8.3 mg/dL (8.4-10.2); Carbon Dioxide 24 mmol/L (22-30); Chloride 105 mmol/L (98-107); Estimated CRCL calculation 123 ml/min; Estimated Glomerular Filt Rate > 60; Glucose 101 mg/dL (65-105); Potassium 4.3 mmol/L (3.4-5.0); Sodium 135 mmol/L (137-145)
--- NOTE | 2020-11-22 11:01 | PM.GYNPNOP ---
[employer] - A/P Assessment and plan (1) Postoperative abscess: Code(s): T81.49XA - Infection following a procedure, other surgical site, initial encounter Status: Acute Assessment and Plan: 1. Continue current antibiotics 2. CT-guided drain to be placed later today 3. Further intervention based on she responds to the above (2) Vaginal cuff dehiscence: Code(s): T81.31XA - Disruption of external operation (surgical) wound, not elsewhere classified, initial encounter Status: Acute Assessment and Plan: 1. Repair of vaginal cuff dehiscence later today. Postoperative Procedures: Procedures Operation Date: 11/22/20 11:30 <No data on this case meets the specified criteria> Operation Date: 11/22/20 13:00 <No data on this case meets the specified criteria> Time Spent With Patient Time: Total time spent is greater than 50% in coordination of care (as documented) at patient's floor/unit and/or counseling patient: Time with patient: 15 - 25 minutes [employer]- PN:[place]assam Post-Op Subjective Date/time seen: 11/22/20 11:01 Events of last night and this morning reviewed with patient earlier this morning. I have discussed with Ms. Wooten that transfer of care at this point may be in her best interests at a tertiary care facility. I have discussed with her that drain placement and vaginal cuff repair can be performed here at this institution if needed but if any further washout or surgical intervention would be best where higher level of care is available. She has good understanding and questions are answered. She agrees with transfer if this can be arranged. Call was placed to Dr. Fischer at [facility] regarding transfer for postoperative complication and care. We discussed at length the lengthy postoperative course of this patient and to this point agreement on appropriate care has been provided. I have also discussed with her that we can place a drain and repair of the dehiscence so that this does not expanded she states agreement with this plan. Regarding further care with her abscess she agrees with current antibiotic choice and continuing these at this time. Does not advocate current weight any intervention surgically or washout procedure. Have discussed with her that if such intervention is necessary I feel it would be best to be at her institution where potentially colorectal surgeons could be involved if necessary. She agrees to accept this patient in transfer but does not have a bed at this point therefore we will proceed with continuing the antibiotics as well as placing the drain and repairing vaginal cuff. Once a bed is available patient will be transferred for further care. [employer] - PN: Obj Data Vital Signs Vital Signs: Vital Signs - 24 hr 11/21/20 15:04 11/21/20 15:18 11/21/20 16:21 Temperature 36.4 C L Pulse Rate 111 H 99 105 H Respiratory Rate 16 23 H 28 H Blood Pressure 112/66 113/72 104/64 Pulse Oximetry 100 100 100 11/21/20 17:47 11/21/20 18:23 11/21/20 18:27 Temperature Pulse Rate 81 90 95 Respiratory Rate 18 14 19 Blood Pressure 130/84 125/72 125/72 Pulse Oximetry 100 100 100 11/21/20 18:58 11/21/20 22:00 11/22/20 06:00 Temperature 36.1 C L 36.1 C L 36.1 C L Pulse Rate 87 92 91 Respiratory Rate 16 21 H 21 H Blood Pressure 122/76 105/58 L 101/45 L Pulse Oximetry 100 100 100 11/22/20 10:32 Temperature 36.0 C L Pulse Rate 75 Respiratory Rate 18 Blood Pressure 134/72 Pulse Oximetry 100 Intake/Output Intake/Output: Intake & Output 11/19/20 11/20/20 11/21/20 11/22/20 23:59 23:59 23:59 23:59 Intake Total 200 650 Output Total 400 700 Balance -200 -50 Meds/Results Medications: Active Medications Generic Name Dose Route Start Last Admin Trade Name Freq PRN Reason Stop Dose Admin Docusate Sodium 100 mg 11/21/20 19:25 Docusate Sodium 100 Mg Capsule PO Q12H PRN Constipation Hydromorphone HCl 1 mg 11/22/20 07:17 Hydromorpho
--- NOTE | 2020-11-22 11:27 | WPDMODSED ---
Moderate Sedation Note-Pt Data Patient Data Diagnosis: Pelvic abscess. Present Complaint: Pelvis abscess. Procedure to be performed/Plan: CT-guided pelvic abscess drainage. Allergies Allergy/AdvReac Type Severity Reaction Status Date / Time morphine Allergy Unknown Unknown Verified 11/10/20 08:34 peanut Allergy Unknown Unknown Verified 11/10/20 08:34 Penicillins Allergy Unknown Unknown Verified 11/10/20 08:34 Home Medications Medication Instructions Recorded Confirmed Type metronidazole 500 mg PO Q12H #28 tablet 11/15/20 Rx sulfamethoxazole-trimethoprim 1 tab PO Q12HR #28 tablet 11/15/20 Rx Current Medications: Active Medications Docusate Sodium (Docusate Sodium 100 Mg Capsule) 100 mg PO Q12H PRN PRN Reason: Constipation Hydromorphone HCl (Hydromorphone Hcl Inj (*Crx) 1 Mg/Ml Syr) 1 mg IV PUSH Q3H PRN PRN Reason: Pain Rated 7-10 Metronidazole (Flagyl 500 Mg/Iso Soln 100 Ml) 500 mg in 100 mls @ 100 mls/hr IVPB Q8H [facility] Last Infusion: 11/22/20 02:45 Dose: Infused Documented by: Ceftriaxone Sodium (Rocephin 2 Gm/D5w 100 Ml) 2 gm in 100 mls @ 200 mls/hr IVPB HS [facility] Last Infusion: 11/21/20 22:13 Dose: Infused Documented by: Sodium Chloride (Normal Saline Iv) 1,000 mls @ 100 mls/hr IV CONT .Q10H [facility] Last Admin: 11/21/20 20:44 Dose: 100 mls/hr Documented by: Naloxone HCl (Naloxone Hcl 0.4 Mg/Ml Vial) 0.1 mg IV PUSH Q2M PRN PRN Reason: Respiratory rate less than 10 Ondansetron HCl (Ondansetron Hcl Odt 4 Mg Tablet) 4 mg PO Q6H PRN PRN Reason: Nausea And Vomiting Last Admin: 11/22/20 06:28 Dose: 4 mg Documented by: Oxycodone/Acetaminophen (Oxycodone/Acetaminophen (*Crx) 5-325 Mg Tablet) 1 tablet PO Q4H PRN PRN Reason: Pain Rated 4-6 Oxycodone/Acetaminophen (Oxycodone/Acetaminophen (*Crx) 5-325 Mg Tablet) 2 tablet PO Q4H PRN PRN Reason: Pain Rated 7-10 Last Admin: 11/22/20 06:26 Dose: 2 tablet Documented by: Sedation/Anesthesia: No previous sedation/anesthesia problems (including family history). [facility] Past Medical History Medical History Anemia Anxiety DVT (deep venous thrombosis) Migraine headache Uterine fibroid UTI (urinary tract infection) Surgical History Surgical History H/O tubal ligation Previous section Family History Family History Father Diabetes mellitus Hypertension Mother History of blood clots Cerebrovascular accident Social History Social History Smoking packs per day: 0.5 Smoking cigarettes per day: 10.0 Years smoked: 15 Smoking pack-years: 7.50 Smoking status: Former smoker Tobacco type: cigarettes Alcohol intake: never Substance use: former Substance use type: marijuana Other substance usage details: Drinks one glass of wine about every 3 months. Last use: 05/2020 Gender identity (if verbalized by the patient): Female Sexual Orientation (if Verbalized by the Patient): Straight or Heterosexual Spiritual care concerns: No Mod Sed Physical Exam Physical Exam Pre Procedural Exam: Normal: Lungs, Heart Rate and Heart Rhythm and Variation: Appearance (Obese), Airway (Mallampati class III) and Abdomen (Mild tenderness) Hours since solid foods: 7 Hours since liquid intake: 7 Internal Medicine - PN: Obj Da Vital Signs Vital Signs: Vital Signs - 24 hr 11/21/20 15:04 11/21/20 15:18 11/21/20 16:21 Temperature 36.4 C L Pulse Rate 111 H 99 105 H Respiratory Rate 16 23 H 28 H Blood Pressure 112/66 113/72 104/64 Pulse Oximetry 100 100 100 11/21/20 17:47 11/21/20 18:23 11/21/20 18:27 Temperature Pulse Rate 81 90 95 Respiratory Rate 18 14 19 Blood Pressure 130/84 125/72 125/72 Pulse Oximetry 100 100 100 11/21/20 18:58 11/21/20 22:00 11/22/20 06:00 Temperature 36.1 C L 36.1 C L 36.1 C L
--- NOTE | 2020-11-22 12:41 | WPDHPUPDATE1 ---
History and Physical Update Update Date/Time: 11/22/20 12:41 Discussed with her need for closure of vaginal wall defect. Questions answered. Will proceed. History and Physical has been reviewed, including an updated exam of the patient. There are NO changes in the patient's condition. Risks, benefits, and alternatives have been discussed and questions answered. Patient agrees to proceed with procedure.
--- NOTE | 2020-11-22 13:30 | WPDANESEPPF ---
Anes - Initial Pre Proc Eval Procedure: Operation Date: 11/22/20 11:30 Proposed Procedures p Radiology Procedure Mod.Sed.Rn/ Abscess Drain Placement - Ion Mattson MD Operation Date: 11/22/20 13:00 Proposed Procedures p REPAIR VAGINAL CUFF - Tristan Graham MD Date/Time: 11/22/20 13:30 Surgeon: Inocencia Saeed MD Pre Op Diagnosis: Pelvic abscess Patient Data Age: 35 Gender: F Height: 1.65 m Weight: 117.8 kg Last Vital Signs Temp 36.0 C L 11/22/20 10:32 Pulse 75 11/22/20 10:32 Resp 18 11/22/20 10:32 BP 134/72 11/22/20 10:32 Pulse Ox 100 11/22/20 10:32 Allergies Allergy/AdvReac Type Severity Reaction Status Date / Time morphine Allergy Unknown Unknown Verified 11/10/20 08:34 peanut Allergy Unknown Unknown Verified 11/10/20 08:34 Penicillins Allergy Unknown Unknown Verified 11/10/20 08:34 Home Medications Medication Instructions Recorded Confirmed Type metronidazole 500 mg PO Q12H #28 tablet 11/15/20 Rx sulfamethoxazole-trimethoprim 1 tab PO Q12HR #28 tablet 11/15/20 Rx Laboratory Tests 11/21/20 11/21/20 11/21/20 15:21 15:21 15:21 WBC 9.0 K/mm3 K/mm3 (4.5-10.0) RBC 4.12 M/mm3 L M/mm3 (4.2-5.4) Hgb 11.3 g/dL L g/dL (12.0-15.0) Hct 35.2 % L % (37.0-47.0) MCV 85.4 fl fl (80-100) MCH 27.4 pg pg (26-34) MCHC 32.1 g/dl g/dl (32-36) RDW 14.6 % H % (11.5-14.5) Plt Count 831 k/mm3 H D k/mm3 (150-375) MPV 8.7 fl fl (7.4-10.4) Immature Gran % (Auto) 1.3 % H % (0-0.5) Neut % (Auto) 56.8 % % (45.5-73.1) Lymph % (Auto) 33.9 % % (18.3-44.2) [place] % (Auto) 7.0 % % (2.6-8.5) Eos % (Auto) 0.7 % % (0-4.4) Baso % (Auto) 0.3 % % (0.2-1.2) Lymph # (Auto) 3.05 K/mm3 K/mm3 (0.9-3.2) [place] # (Auto) 0.6 K/mm3 K/mm3 (0.1-0.6) Eos # (Auto) 0.1 K/mm3 K/mm3 (0-0.3) Baso # (Auto) 0.0 K/mm3 K/mm3 (0.0-0.1) Abs Immat Gran (auto) 0.12 K/mm3 H K/mm3 (0.00-0.031) Absolute Neuts (auto) 5.1 K/mm3 K/mm3 (1.3-6.7) Absolute Nucleated RBC 0.0 K/mm3 K/mm3 (0.0-0.012) Nucleated RBC % 0.0 % % (0.0-0.2) Sodium 135 mmol/L L mmol/L (137-145) Potassium 3.9 mmol/L mmol/L (3.4-5.0) Chloride 102 mmol/L mmol/L (98-107) Carbon Dioxide 22 mmol/L mmol/L (22-30) Anion Gap 11 mmol/L mmol/L (8-16) BUN 7 mg/dL mg/dL (7-17) Creatinine 1.00 mg/dL mg/dL (0.7-1.0) Estim Creat Clear Calc 88 ml/min ml/min Estimated GFR > 60 (59 - ) Glucose 148 mg/dL H mg/dL (65-105) Calcium 8.8 mg/dL mg/dL (8.4-10.2) Total Bilirubin 0.3 mg/dL mg/dL (0.2-1.3) AST 39 U/L H U/L (14-36) ALT 30 U/L U/L (4-35) Alkaline Phosphatase 93 U/L U/L (38-126) Total Protein 8.0 g/dL g/dL (6.3-8.2) Albumin 3.9 g/dL g/dL (3.5-5.1) Blood Type O Positive Antibody Screen Negative 11/22/20 11/22/20 05:43 05:43 WBC 10.3 K/mm3 H K/mm3 (4.5-10.0) RBC 3.40 M/mm3 L M/mm3 (4.2-5.4) Hgb 9.3 g/dL L g/dL (12.0-15.0) Hct 29.6 % L % (37.0-47.0) MCV 87.1 fl fl (80-100) MCH 27.4 pg pg (26-34) MCHC 31.4 g/dl L g/dl (32-36) RDW 15.0 % H % (11.5-14.5) Plt Count 719 k/mm3 H k/mm3 (150-375) MPV 9.2 fl fl (7.4-10.4) Immature Gran % (Auto) 0.7 % H % (0-0.5) Neut % (Auto) 66.8 % % (45.5-73.1) Lymph % (Auto) 24.3 % % (18.3-44.2) [place] % (Auto) 7.5 % % (2.6-8.5) Eos % (Auto) 0.4 % % (0-4.4) Baso % (Auto) 0.3 % % (0.2-1.2) Lymph # (Auto) 2.50 K/mm3 K/mm3 (0.9-3.2) [place] # (Auto) 0.8 K/mm3 H K/mm3 (0.1-0.6) Eos # (Auto) 0.0 K
[2020-11-22] MEDS: LACTATED RINGERS 1,000 ML 30 ML IV CONT ×2 (13:37→16:05)
--- NOTE | 2020-11-22 13:48 | PC.NURSE ---
On 11/22/20, the student, [Janet Buck ], provided care and completed [facility] documentation on this patient. I have reviewed the student's documentation and agree with the findings.
--- NOTE | 2020-11-22 14:33 | P.OPB_ITS ---
Procedure Note - Brief Procedure Note - Brief Date of procedure: 11/22/20 Pre-op diagnosis: Pelvic abscess Post-op diagnosis: same Procedure performed: repair vaginal wall dehiscence Description of procedure: Patient prepped and draped in usual manner for this procedure after anesthesia had been induced. Bimanual exam revealed 1/2 to 2cm midportion of the vaginal cuff dehiscence with the rest of the cuff strongly intact. Retractors were placed and the defect was visualized [id number] suture was placed 0 PDS with good closure of defect noted. Prior to placing suture area internal to the cuff dehiscence was palpated with no bowel or other that tissue. Once this was placed by manual exam revealed good approximation noted. Procedure was considered terminated and the patient was then sent to recovery room stable condition. Anesthesia: GLMA Surgeon: Tristan Graham MD [employer] Supervisor: Inocencia Saeed MD Estimated blood loss (mL): 20 Drains: No Packing: No Pathology: none sent Complications: None Condition: stable Disposition: PACU Findings: 2cm defect in the vaginal cuff noted on exam. After repair defect closed. Also noted on exam no bowel in the immediate area internal of the cuff dehiscence.
[2020-11-22] MEDS: fentaNYL CITRATE INJ (*CRX) 100 MCG/2 ML VIAL 25 MCG IV PUSH ×4 (15:01→15:39)
[2020-11-22] MEDS: HYDROmorphone HCL INJ (*CRX) 1 MG/ML SYR 0.25 MG IV PUSH ×2 (15:45→16:09)
[2020-11-22] MEDS: SODIUM CHLORIDE 0.9% IV 1,000 ML 100 ML IV CONT (17:16)
[2020-11-22] MEDS: HYDROmorphone HCL INJ (*CRX) 1 MG/ML SYR IV PUSH (19:57)
--- NOTE | 2020-11-26 12:40 | P.TS_ITS ---
Transfer Discharge Sum: Prov Provider Date of admission: 11/21/20 17:43 Primary care physician: Kurtis Matthews, Admitting clinician: Inocencia Saeed MD DS: Admitting Diagnosis Admitting Diagnosis Admitting Diagnosis: vaginal bleeding recurrent postoperative pelvic abscess DS: Discharge Diagnosis Discharge Diagnosis (1) Vaginal cuff dehiscence: Qualifiers: Encounter type: initial encounter Qualified Code(s): T81.31XA - Disruption of external operation (surgical) wound, not elsewhere classified, initial encounter Code(s): T81.31XA - Disruption of external operation (surgical) wound, not elsewhere classified, initial encounter Status: Acute (2) H/O: hysterectomy: Code(s): Z90.710 - Acquired absence of both cervix and uterus Status: Acute (3) Postoperative abscess: Code(s): T81.49XA - Infection following a procedure, other surgical site, initial encounter Status: Acute (4) H/O deep venous thrombosis: Code(s): Z86.718 - Personal history of other venous thrombosis and embolism Status: Acute (5) Morbid obesity with BMI of 40.0-44.9, adult: Code(s): E66.01 - Morbid (severe) obesity due to excess calories; Z68.41 - Body mass index [BMI]40.0-44.9, adult Status: Acute (6) Vaginal bleeding: Code(s): N93.9 - Abnormal uterine and vaginal bleeding, unspecified Status: Acute Transfer Discharge Sum: Med Medications Active and Home Medications: Home Medications metronidazole 500 mg PO Q12H #28 tablet 11/15/20 [Rx] sulfamethoxazole-trimethoprim 1 tab PO Q12HR #28 tablet 11/15/20 [Rx] Transfer Discharge Sum: Hosp Hospital Course Hospital course: Lyudmila Wooten is a 35 year old female who was readmitted wit h pelvic collection and new vaginal bleeding s/p RA-TLH. Labs/vitals were stable on adission. Exam revealed a 2cm area of dehiscence which was surgically repaired. She was restarted on IV antibiotics and pain medications. CT guided drain placement was performed again by IR. Plan per primary surgeon (Dr. Tristan Graham), transfer was arranged for the patient to [place] for possible open drainage due to large, recurrent, and loculated postoperative pelvic abscess. Time Spent with Patient Time attestation: Total time spent providing and/or coordinating transfer services: Exam Const: General: cooperative, healthy appearing and no acute distress Nutritional Appearance: obese Resp: Effort & Inspection: normal respiratory effort and able to speak in complete sentences Cardio: Rate: regular rate GI: Inspection: incision (laparoscopic incisions healing well) GI Palp: Yes abdominal tenderness (appropriate), Yes Soft to palpation and No Guarding due to palpation present (GI) Auscultation: normal bowel sounds Other: cutaneous drain in place : Other: no vaginal bleeding Skin: General skin exam: normal color Neuro: General: patient oriented x3 Extrem: General: normal to inspection Psych: Appearance: grossly normal Affect: normal affect Attitude: cooperative DS: Data Data Completed and Pending Labs on day of discharge: Preliminary micro results at discharge 11/22/20 13:13 Anaerobic Culture - Preliminary Abscess
== END 2020-11-22 21:35 | disposition short-term general hospital (02) | DRG 813 ==
LOC: ANHED 18:02 → ANH2MED 18:13
PROVIDERS: Emergency Medicine; Radiology Diagnostic Radiology; Admitting Provider Obstetrics & Gynecology; Emergency Provider Family Medicine; PCP Family Medicine; Visit Provider Obstetrics & Gynecology
PROC: 0W9J30Z Drainage of Pelvic Cavity with Drainage Device, Percutaneous Approach (ICD-10-PCS; principal; 2020-11-22 11:30)
PROC: 0WQNXZZ Repair Female Perineum, External Approach (ICD-10-PCS; CPT 58260; principal; 2020-11-22 13:00)
DX: T81.31XA Disruption of external operation (surgical) wound, not elsewhere classified, initial encounter (principal); T81.49XA Infection following a procedure, other surgical site, initial encounter; N73.0 Acute parametritis and pelvic cellulitis; N93.8 Other specified abnormal uterine and vaginal bleeding; Z90.710 Acquired absence of both cervix and uterus; E66.01 Morbid (severe) obesity due to excess calories; D64.9 Anemia, unspecified; F41.9 Anxiety disorder, unspecified; Z86.718 Personal history of other venous thrombosis and embolism; Z68.41 Body mass index [BMI] 40.0-44.9, adult; Z87.891 Personal history of nicotine dependence
CPT/HCPCS: 36415; 74177; 75989; 80048; 80053; 85025; 86850; 86900; 86901; 87070; 87075; 87205; 96374; 99285; A9270; C1769; J0696; J1100; J1170; J1885; J2250; J2405; J2704; J3010; J7030; J7040; J7120; Q9967

== ENCOUNTER 2020-12-04 11:02 | Outpatient (RCR) | payer OTHER, SELFPAY ==
[2020-12-04 12:04] LABS: Basophils Percent Auto 0.7 % (0.2-1.2); Eosinophils Absolute Auto 0.2 K/mm3 (0-0.3); Eosinophils Percent Auto 4.4 % (0-4.4); Hematocrit 31.4 % (37.0-47.0); Hemoglobin 9.8 g/dL (12.0-15.0); Immature Granulocyte Absolute 0.01 K/mm3 (0.00-0.031); Immature Granulocyte Percent A 0.2 % (0-0.5); Lymphocytes Absolute Auto 1.82 K/mm3 (0.9-3.2); Lymphocytes Percent Auto 44.1 % (18.3-44.2); Mean Corpuscular HGB Conc 31.2 g/dl (32-36); Mean Corpuscular Hemoglobin 27.8 pg (26-34); Mean Corpuscular Volume 89.2 fl (80-100); Mean Platelet Volume 8.9 fl (7.4-10.4); Monocytes Absolute Auto 0.4 K/mm3 (0.1-0.6); Monocytes Percent Auto 9.2 % (2.6-8.5); Neutrophils Absolute Auto 1.7 K/mm3 (1.3-6.7); Neutrophils Percent Auto 41.4 % (45.5-73.1); Platelet Count Result 447 k/mm3 (150-375); Red Blood Count 3.52 M/mm3 (4.2-5.4); Red Cell Distribution Width 16.3 % (11.5-14.5); White Blood Count 4.1 K/mm3 (4.5-10.0)
[2020-12-04 12:31] LABS: Alanine Aminotransferase 71 U/L (4-35); Albumin Level 3.7 g/dL (3.5-5.1); Alkaline Phosphatase 75 U/L (38-126); Anion Gap 5 mmol/L (8-16); Aspartate Amino Transferase 60 U/L (14-36); Bilirubin,Total 0.4 mg/dL (0.2-1.3); Blood Urea Nitrogen 5 mg/dL (7-17); Calcium 8.6 mg/dL (8.4-10.2); Carbon Dioxide 25 mmol/L (22-30); Chloride 108 mmol/L (98-107); Estimated Glomerular Filt Rate > 60; Glucose 95 mg/dL (65-105); Potassium 3.9 mmol/L (3.4-5.0); Sodium 138 mmol/L (137-145)
== END 2021-03-04 23:59 | disposition home or self-care (01) ==
LOC: ANHLAB 11:02
PROVIDERS: PCP Family Medicine; Visit Provider Obstetrics & Gynecology
DX: N73.9 Female pelvic inflammatory disease, unspecified (principal)
CPT/HCPCS: 36415; 80053; 85025

== ENCOUNTER 2021-07-07 10:58 | Emergency (ER) | payer OTHER, SELFPAY ==
[2021-07-07 13:02] VITALS: BP 143/95; PULSE 72; RESP 18; TEMP 36.7; O2SAT 100
[2021-07-07 13:55] LABS: Basophils Percent Auto 0.8 % (0.2-1.2); Eosinophils Absolute Auto 0.1 K/mm3 (0-0.3); Eosinophils Percent Auto 2.5 % (0-4.4); Hemoglobin 12.5 g/dL (12.0-15.0); Lymphocytes Absolute Auto 2.36 K/mm3 (0.9-3.2); Lymphocytes Percent Auto 45.8 % (18.3-44.2); Mean Corpuscular HGB Conc 31.3 g/dl (32-36); Mean Corpuscular Hemoglobin 27.9 pg (26-34); Mean Corpuscular Volume 89.3 fl (80-100); Mean Platelet Volume 9.7 fl (7.4-10.4); Monocytes Absolute Auto 0.4 K/mm3 (0.1-0.6); Monocytes Percent Auto 7.8 % (2.6-8.5); Neutrophils Absolute Auto 2.2 K/mm3 (1.3-6.7); Neutrophils Percent Auto 43.1 % (45.5-73.1); Platelet Count Result 383 k/mm3 (150-375); Red Blood Count 4.48 M/mm3 (4.2-5.4); Red Cell Distribution Width 14.8 % (11.5-14.5); White Blood Count 5.2 K/mm3 (4.5-10.0)
[2021-07-07 14:02] LABS: Add Urine Microscopic? NO; Appearance Urine Clear (Clear); Bilirubin Urine Negative (Negative); Blood Urine Negative (Negative); Color Urine Yellow (Yellow); Glucose Urine UA Negative (Negative); Ketones Urine Negative (Negative); Leukocyte Esterase Ur Negative LEU/UL (Negative); Nitrate Urine Negative (Negative); Protein Urine Negative (Negative); Specific Grav Ur 1.024 (1.001-1.035); Urobilinogen Urine Negative mg/dL (<2.0)
[2021-07-07 14:09] LABS: Alanine Aminotransferase 24 U/L (4-35); Albumin Level 4.3 g/dL (3.5-5.1); Alkaline Phosphatase 82 U/L (38-126); Anion Gap 7 mmol/L (8-16); Aspartate Amino Transferase 27 U/L (14-36); Bilirubin,Total 0.5 mg/dL (0.2-1.3); Blood Urea Nitrogen 10 mg/dL (7-17); Carbon Dioxide 27 mmol/L (22-30); Chloride 105 mmol/L (98-107); Estimated CRCL calculation 117 ml/min; Estimated Glomerular Filt Rate > 60; Glucose 90 mg/dL (65-110); Lipase 41 U/L (23-300); Potassium 3.8 mmol/L (3.4-5.0); Sodium 139 mmol/L (137-145)
--- NOTE | 2021-07-07 16:44 | ED.GENADULT ---
HPI - General Adult General Chief complaint: Headache Stated complaint: Headache Time Seen by Provider: 07/07/21 16:43 Source: patient Mode of arrival: ambulatory Limitations: no limitations History of Present Illness HPI narrative: Patient is here for migraine headache that started yesterday, she treated herself with her usual migraine medicines with no relief. She the pain is pulsating in her forehead and she is starting to have photosensitivity. She is also complaining of cramping in her pelvis. She does not have any UTI symptoms and she has had a hysterectomy. Onset (ago): hour(s) Pain Consistency: constant Relieving factors: none Associated symptoms: denies other symptoms Related Data Allergies Allergy/AdvReac Type Severity Reaction Status Date / Time peanut Allergy Severe Anaphylaxis Verified 11/22/20 13:36 morphine Allergy Unknown Unknown Verified 11/10/20 08:34 Penicillins Allergy Unknown Unknown Verified 11/10/20 08:34 Review of Systems Review of Systems: All systems reviewed & are unremarkable except as noted in HPI and below PMFSH Past Medical History Medical History Anemia Anxiety DVT (deep venous thrombosis) Migraine headache Morbid obesity with BMI of 40.0-44.9, adult Uterine fibroid UTI (urinary tract infection) Surgical History Surgical History H/O tubal ligation Previous section Family History Family History Father Diabetes mellitus Hypertension Mother History of blood clots Cerebrovascular accident Social History Social History Smoking packs per day: 0.5 Smoking cigarettes per day: 10.0 Years smoked: 15 Smoking pack-years: 7.50 Smoking status: Former smoker Tobacco type: cigarettes Alcohol intake: never Substance use: former Substance use type: marijuana Other substance usage details: Drinks one glass of wine about every 3 months. Last use: 05/2020 Gender identity (if verbalized by the patient): Female Sexual Orientation (if Verbalized by the Patient): Straight or Heterosexual Spiritual care concerns: No Exam Const: General: healthy appearing, no acute distress and alert Orientation/consciousness: patient oriented x3 HENMT: Head: normal to inspection Eyes: Conjunctivae: conjunctivae normal Pupils: Equal, round and reactive pupils present EOM: EOMs intact bilaterally Direct Ophthalmoscopy: photophobia Resp: Effort & Inspection: normal respiratory effort Auscultation: clear to auscultation bilaterally Cardio: Rate: regular rate Rhythm: regular rhythm : General: Yes no CVA tenderness Other: suprapubic tenderness Skin: General skin exam: normal color Neuro: General: patient oriented x3, moves all extremities and no focal motor deficits Extrem: General: normal to inspection Psych: Mental Status: mental status grossly normal Course Course Emergency Course: She states that the pain is less after the first round of treatment, there is no longer throbbing. Will repeat normal saline bolus. Her urine does not look to be infected. Give a dose of Pyridium for bladder spasm. She is attempting to eat something this time. She states that she continues to have cramping around the area of her hysterectomy scar. Recommend that she follow-up with her primary care physician or naval science teacher that did the surgery she is urinating and stooling normally. Feels much better and iis ready to go home Vital Signs Vital signs: Vital Signs Temperature 36.7 C 07/07/21 13:02 Pulse Rate 72 07/07/21 13:02 Respiratory Rate 18 07/07/21 13:02 Blood Pressure 143/95 H 07/07/21 13:02 Pulse Oximetry 100 07/07/21 13:02 Temperature 36.7 C 07/07/21 13:02 Pulse Rate 72 07/07/21 13:02 Respiratory Rate 18 07/07/21 13:0
[2021-07-07] MEDS: KETOROLAC 30 MG/ML VIAL (*BKC) IV PUSH (17:10)
[2021-07-07] MEDS: diphenhydrAMINE HCl INJ 50 MG/ML VIAL 25 MG IV PUSH (17:10)
[2021-07-07] MEDS: METOCLOPRAMIDE HCL INJ 10 MG/2 ML VIAL IV PUSH (17:11)
[2021-07-07] MEDS: PHENAZOPYRIDINE HCL 100 MG TABLET 200 MG PO (17:11)
[2021-07-07] MEDS: SODIUM CHLORIDE 0.9% IV 1,000 ML 999 ML IV CONT ×2 (17:11→17:58)
[2021-07-07 19:58] VITALS: BP 132/70; PULSE 76; RESP 18; O2SAT 99
== END 2021-07-07 20:00 | disposition home or self-care (01) ==
PROVIDERS: Emergency Medicine; Emergency Provider Emergency Medicine; PCP Family Medicine
DX: G43.009 Migraine without aura, not intractable, without status migrainosus (principal); E66.01 Morbid (severe) obesity due to excess calories; Z68.39 Body mass index [BMI] 39.0-39.9, adult; Z86.718 Personal history of other venous thrombosis and embolism; Z86.2 Personal history of diseases of the blood and blood-forming organs and certain disorders involving the immune mechanism; Z87.440 Personal history of urinary (tract) infections; Z87.891 Personal history of nicotine dependence
CPT/HCPCS: 36415; 80053; 81003; 81025; 83690; 85025; 96361; 96374; 96375; 99284; A9270; J1200; J1885; J2765; J7030

== ENCOUNTER 2022-03-08 14:06 | Emergency (ER) | payer OTHER, SELFPAY ==
--- NOTE | ~2022-03-08 | CT_ITS ---
EXAMINATION: CT abdomen pelvis wo con DATE: 03/08/2022 17:02 INDICATION: Severe abdominal pain and cramping. TECHNIQUE: Computed tomography (CT) of the abdomen and pelvis was performed without intravenous contr ast. The dose-length product was 1492.17 mGy-cm. Automated exposure control and iterative reconstruct ion technique were employed. COMPARISON: CT dated 11/21/2020. FINDINGS: Lung bases are unremarkable. Heart size normal. No significant pleural or pericardial effus ion. Small fat-containing umbilical hernia. Nonobstructive bowel gas pattern. Fatty infiltration of the liver. Gallbladder is present. The spleen , pancreas, adrenal glands and kidneys are unremarkable. There is a fat-containing umbilical hernia. There is rounded soft tissue mass in the left adnexa measuring 4.2 x 3.7 cm, likely prominent ovary. Small amount of free fluid in the left adnexa. There is levoscoliosis. IMPRESSION: 1. Prominent soft tissue mass in the left adnexa, likely prominent ovary. Consider correlation with u ltrasound. Small amount of free fluid in the left adnexa. 2: Hepatic steatosis. Reviewed, dictated and finalized at location A. IMPRESSION: 1. Prominent soft tissue mass in the left adnexa, likely prominent ovary. Consi tung correlation with ultrasound. Small amount of free fluid in the left adnexa. 2: Hepatic steatosis.
[2022-03-08 14:08] VITALS: BP 147/79; PULSE 91; RESP 18; TEMP 36.8; O2SAT 100
--- NOTE | 2022-03-08 14:14 | ED.GENADULT ---
HPI - General Adult General Chief complaint: Abdominal Pain Stated complaint: abd pain History of Present Illness HPI narrative: 36-year-old female with prior history of migraines and anemia presenting to the emergency department for evaluation of abdominal/epigastric pain that started approximately 1 hour to arrival. Patient states she had felt well this morning but approximately 1 hour prior to arrival she began having intermittent abdominal and epigastric abdominal pain and cramping. Patient states the pain starts in her lower abdomen and radiates up to her epigastrium. Patient describes it as a cramping pain that does continue to increase the longer last. Patient does have associated nausea without vomiting. Patient denies any prior history of gastritis. Patient denies any recent heavy alcohol or frequent NSAID use. Patient still has her gallbladder and still has her appendix. Patient denies any prior issues with her gallbladder. Patient does have a prior history of hysterectomy in October. Related Data Allergies Allergy/AdvReac Type Severity Reaction Status Date / Time peanut Allergy Severe Anaphylaxis Verified 03/08/22 14:13 morphine Allergy Unknown Unknown Verified 03/08/22 14:13 Penicillins Allergy Unknown Unknown Verified 03/08/22 14:13 Review of Systems Review of Systems: CONSTITUTIONAL: Denies fever, chills, or sweats. EYES: Denies visual changes, redness, or discharge. ENT: Denies rhinorrhea, congestion, sore throat, or otalgia. CARDIOVASCULAR: Denies chest pain, palpitations, or edema. RESPIRATORY: Denies cough or dyspnea. GASTROINTESTINAL: See HPI GENITOURINARY: Denies dysuria or hematuria. SKIN: Denies rash or itching. MUSCULOSKELETAL: Denies back pain, joint pain, or myalgia. NEUROLOGIC: Denies headache, numbness, or weakness. [facility] Past Medical History Medical History Anemia Anxiety DVT (deep venous thrombosis) Migraine headache Morbid obesity with BMI of 40.0-44.9, adult Uterine fibroid UTI (urinary tract infection) Surgical History Surgical History H/O tubal ligation Previous section Family History Family History Father Diabetes mellitus Hypertension Mother History of blood clots Cerebrovascular accident Social History Social History Smoking packs per day: 0.5 Smoking cigarettes per day: 10.0 Years smoked: 15 Smoking pack-years: 7.50 Smoking status: Former smoker Tobacco type: cigarettes Alcohol intake: never Substance use: former Substance use type: marijuana Other substance usage details: Drinks one glass of wine about every 3 months. Last use: 05/2020 Gender identity (if verbalized by the patient): Female Sexual Orientation (if Verbalized by the Patient): Straight or Heterosexual Spiritual care concerns: No Exam Narrative: APPEARANCE: Well appearing, no pain, no distress, well-nourished. HEAD: normocephalic, atraumatic. EYES: PERRLA/EOMI, conjunctivae clear. NOSE: Normal no drainage THROAT: Pharynx clear, no exudate. NECK: Supple. No adenopathy, no masses. RESPIRATORY: Airway patent, respirations nonlabored. Clear to auscultation bilaterally, no rales, rhonchi, wheezing. CARDIOVASCULAR: Regular rate and rhythm without murmurs rubs or gallops. ABDOMINAL: Soft, normal bowel sounds, nondistended, tenderness to palpation at epigastrium MUSCULOSKELETAL: Moves all extremities. Strength/ROM intact, No edema, No calf tenderness. NEURO: Alert. Cranial nerves II through XII intact. Good gait. Good coordination SKIN: Warm, dry. Normal Color Course Course Emergency Course: Patient did have some improvement in her symptoms with the GI cocktail. Symptoms further improved with IV medication. Patient complained primarily of epigastric
[2022-03-08] MEDS: SODIUM CHLORIDE 0.9% IV 1,000 ML 999 ML IV CONT ×2 (14:27→17:43)
[2022-03-08] MEDS: ONDANSETRON INJ 4 MG/2 ML VIAL IV PUSH (14:27)
[2022-03-08 14:29] LABS: Basophils Percent Auto 0.7 % (0.2-1.2); Eosinophils Absolute Auto 0.1 K/mm3 (0-0.3); Eosinophils Percent Auto 2.4 % (0-4.4); Hematocrit 37.1 % (37.0-47.0); Hemoglobin 12.2 g/dL (12.0-15.0); Immature Granulocyte Absolute 0.01 K/mm3 (0.00-0.031); Immature Granulocyte Percent A 0.2 % (0-0.5); Lymphocytes Absolute Auto 2.34 K/mm3 (0.9-3.2); Lymphocytes Percent Auto 39.3 % (18.3-44.2); Mean Corpuscular HGB Conc 32.9 g/dl (32-36); Mean Corpuscular Hemoglobin 28.4 pg (26-34); Mean Corpuscular Volume 86.3 fl (80-100); Mean Platelet Volume 9.6 fl (7.4-10.4); Monocytes Absolute Auto 0.5 K/mm3 (0.1-0.6); Monocytes Percent Auto 8.2 % (2.6-8.5); Neutrophils Absolute Auto 2.9 K/mm3 (1.3-6.7); Neutrophils Percent Auto 49.2 % (45.5-73.1); Platelet Count Result 362 k/mm3 (150-375); Red Cell Distribution Width 14.2 % (11.5-14.5)
[2022-03-08 14:39] LABS: Lactic Acid Reflex 0.8 mmol/L (0.7-2.0)
[2022-03-08 14:42] LABS: Alanine Aminotransferase 15 U/L (6-35); Albumin Level 3.7 g/dL (3.5-5.1); Alkaline Phosphatase 71 U/L (38-126); Anion Gap 6 mmol/L (8-16); Aspartate Amino Transferase 24 U/L (14-36); Bilirubin,Total 0.5 mg/dL (0.2-1.3); Blood Urea Nitrogen 10 mg/dL (7-17); Calcium 8.2 mg/dL (8.4-10.2); Carbon Dioxide 21 mmol/L (22-30); Chloride 109 mmol/L (98-107); Estimated CRCL calculation 115 ml/min; Estimated Glomerular Filt Rate > 60; Glucose 98 mg/dL (65-110); Lipase 38 U/L (23-300); Potassium 3.6 mmol/L (3.4-5.0); Sodium 136 mmol/L (137-145)
[2022-03-08] MEDS: BELLADONNA ALK/PHENOB ELIX 10 ML, MAG HYDROX/ALUMINUM HYD/SIMETH 30 ML, LIDOCAINE HCL 2... PO (14:51)
[2022-03-08 16:00] LABS: Mucus Urine Few /lpf; Squamous Epithelial Cell Urine Many /hpf (Few); WBC Urine 0-3 /hpf
[2022-03-08 16:07] LABS: Add Urine Microscopic? YES; Appearance Urine Slightly Cloudy (Clear); Bilirubin Urine 1+ (Negative); Blood Urine Negative (Negative); Color Urine Orange (Yellow); Glucose Urine UA Trace mg/dL (Negative); Ketones Urine Trace mg/dL (Negative); Leukocyte Esterase Ur 3+ LEU/UL (Negative); Nitrate Urine Positive (Negative); Protein Urine 1+ mg/dL (Negative)
[2022-03-08 16:26] VITALS: BP 167/99; PULSE 102; RESP 18; O2SAT 100
[2022-03-08] MEDS: HYDROmorphone HCL INJ (*CRX) 1 MG/ML SYR 0.5 MG IV PUSH (16:26)
[2022-03-08] MEDS: PANTOPRAZOLE SODIUM IV 40 MG VIAL IV PUSH (17:43)
[2022-03-08 18:29] VITALS: BP 145/93; PULSE 86; RESP 18; O2SAT 100
== END 2022-03-08 18:30 | disposition home or self-care (01) ==
PROVIDERS: Emergency Provider Emergency Medicine; PCP Family Medicine
DX: N39.0 Urinary tract infection, site not specified (principal); R10.13 Epigastric pain; Z86.718 Personal history of other venous thrombosis and embolism; Z87.891 Personal history of nicotine dependence
CPT/HCPCS: 36415; 74176; 80053; 81001; 83605; 83690; 85025; 96361; 96374; 96375; 99284; A9270; C9113; J1170; J2405; J7030

== ENCOUNTER 2023-01-06 12:52 | Emergency (ER) | payer OTHER, SELFPAY ==
--- NOTE | ~2023-01-06 | XR_ITS ---
XR chest 2V DATE: 01/06/2023 15:09 INDICATION: Chest pain, upper left side TECHNIQUE: PA and lateral views COMPARISON: 11/10/2020 CTA chest 04/28/2018 PA and lateral chest FINDINGS: No pulmonary infiltrate or consolidation, pleural effusion or pulmonary vascular congestion or pneumothorax. The cardiac and mediastinal silhouettes are unremarkable. Included skeletal structu res likewise are unremarkable. IMPRESSION: No active cardiopulmonary disease Reviewed, dictated and finalized at location B.
[2023-01-06 13:23] VITALS: BP 143/80; PULSE 81; RESP 16; TEMP 36.9; O2SAT 100
--- NOTE | 2023-01-06 13:35 | ECG_ITS ---
Measurements Intervals [place] Rate: 66 P: 24 DC: 153 QRS: 46 QRSD: 81 T: 21 QT: 393 QTc: 414 Interpretive Statements SINUS RHYTHM BASELINE ARTIFACT- I, III, AVR, AVL NORMAL ECG COMPARED TO ECG 11/10/2020 04:55:36 SINUS RHYTHM NOW PRESENT Electronically Signed On 01-06-2023 14:05:37 CDT by Hector Loco D.O.
[2023-01-06] MEDS: SODIUM CHLORIDE 0.9% IV 1,000 ML 999 ML IV CONT (14:24)
[2023-01-06] MEDS: KETOROLAC 30 MG/ML VIAL (*BKC) IV PUSH (14:24)
[2023-01-06 14:37] LABS: Basophils Percent Auto 0.7 % (0.2-1.2); Eosinophils Absolute Auto 0.2 K/mm3 (0-0.3); Eosinophils Percent Auto 2.5 % (0-4.4); Hematocrit 40.1 % (37.0-47.0); Hemoglobin 12.7 g/dL (12.0-15.0); Immature Granulocyte Absolute 0.01 K/mm3 (0.00-0.031); Immature Granulocyte Percent A 0.2 % (0-0.5); Lymphocytes Absolute Auto 2.57 K/mm3 (0.9-3.2); Lymphocytes Percent Auto 42.1 % (18.3-44.2); Mean Corpuscular HGB Conc 31.7 g/dl (32-36); Mean Corpuscular Hemoglobin 28.2 pg (26-34); Mean Corpuscular Volume 88.9 fl (80-100); Mean Platelet Volume 10.2 fl (7.4-10.4); Monocytes Absolute Auto 0.5 K/mm3 (0.1-0.6); Monocytes Percent Auto 7.7 % (2.6-8.5); Neutrophils Absolute Auto 2.9 K/mm3 (1.3-6.7); Neutrophils Percent Auto 46.8 % (45.5-73.1); Platelet Count Result 384 k/mm3 (150-375); Red Blood Count 4.51 M/mm3 (4.2-5.4); Red Cell Distribution Width 14.2 % (11.5-14.5); White Blood Count 6.1 K/mm3 (4.5-10.0)
[2023-01-06 14:47] LABS: Prothrombin Time 13.1 Seconds (11.1-14.7)
[2023-01-06 14:54] LABS: Alanine Aminotransferase 19 U/L (6-35); Albumin Level 4.4 g/dL (3.5-5.1); Alkaline Phosphatase 70 U/L (38-126); Anion Gap 3 mmol/L (8-16); Aspartate Amino Transferase 22 U/L (14-36); Bilirubin,Total 0.6 mg/dL (0.2-1.3); Blood Urea Nitrogen 9 mg/dL (7-17); Calcium 8.6 mg/dL (8.4-10.2); Carbon Dioxide 29 mmol/L (22-30); Chloride 107 mmol/L (98-107); Estimated CRCL calculation 138 ml/min; Estimated Glomerular Filt Rate > 60; Glucose 92 mg/dL (65-110); Potassium 4.1 mmol/L (3.4-5.0); Sodium 139 mmol/L (137-145)
--- NOTE | 2023-01-06 15:11 | ED.GENADULT ---
HPI - General Adult General Chief complaint: Headache Stated complaint: headache, swelling to neck Time Seen by Provider: 01/06/23 13:39 History of Present Illness HPI narrative: Patient is a 37-year-old female who presents to the ER with several issues. Reports she began having throbbing headache over the last couple days. Has begun to feel like a migraine actually had some photophobia. No nausea or vomiting. Today she developed some swelling beneath her chin that is tender to touch. Mildly worse with eating and drinking. No fevers or chills or sweats. Denies runny nose or sore throat or productive cough. No thunderclap headache. Related Data Allergies Allergy/AdvReac Type Severity Reaction Status Date / Time peanut Allergy Severe Anaphylaxis Verified 01/06/23 13:34 morphine Allergy Unknown Unknown Verified 01/06/23 13:34 Penicillins Allergy Unknown Unknown Verified 01/06/23 13:34 PMFSH Past Medical History Medical History Anemia Anxiety DVT (deep venous thrombosis) Migraine headache Morbid obesity with BMI of 40.0-44.9, adult Uterine fibroid UTI (urinary tract infection) Surgical History Surgical History H/O tubal ligation Previous section Family History Family History Father Diabetes mellitus Hypertension Mother History of blood clots Cerebrovascular accident Social History Social History Smoking packs per day: 0.5 Smoking cigarettes per day: 10.0 Years smoked: 15 Smoking pack-years: 7.50 Smoking status: Former smoker Tobacco type: cigarettes Alcohol intake: never Substance use: former Substance use type: marijuana Other substance usage details: Drinks one glass of wine about every 3 months. Last use: 05/2020 Gender identity (if verbalized by the patient): Female Sexual Orientation (if Verbalized by the Patient): Straight or Heterosexual Spiritual care concerns: No Exam Narrative: GENERAL: Well-appearing, well-nourished, and in no acute distress. HEAD: Normocephalic, atraumatic. EYES: PERRL and EOMI. ENT: Mucous membranes moist. Submental swelling with tenderness, nodular, no pustules/fluctuance. CHEST: Clear to auscultation. No respiratory distress. HEART: Regular rate and rhythm. Normal peripheral pulses. EXTREMITIES: Normal range of motion. No edema. NEURO: Alert and oriented x3. PSYCH: Normal mood and affect. Course Course Emergency Course: Patient resting comfortably. Informed of results. Also improvement of headache with Toradol. Vital Signs Vital signs: Vital Signs Temperature 98.4 F 01/06/23 13:23 Pulse Rate 81 01/06/23 13:23 Respiratory Rate 16 01/06/23 13:23 Blood Pressure 143/80 H 01/06/23 13:23 Pulse Oximetry 100 01/06/23 13:23 Oxygen Delivery Room Air 01/06/23 13:23 Temperature 98.4 F 01/06/23 13:23 Pulse Rate 81 01/06/23 13:23 Respiratory Rate 16 01/06/23 13:23 Blood Pressure 143/80 H 01/06/23 13:23 Pulse Oximetry 100 01/06/23 13:23 Oxygen Delivery Room Air 01/06/23 13:23 Medical Decision Making Vital Signs Vital Signs: Vital Signs Temperature 98.4 F 01/06/23 13:23 Pulse Rate 81 01/06/23 13:23 Respiratory Rate 16 01/06/23 13:23 Blood Pressure 143/80 H 01/06/23 13:23 Pulse Oximetry 100 01/06/23 13:23 Oxygen Delivery Room Air 01/06/23 13:23 Temperature 98.4 F 01/06/23 13:23 Pulse Rate 81 01/06/23 13:23 Respiratory Rate 16 01/06/23 13:23 Blood Pressure 143/80 H 01/06/23 13:23 Pulse Oximetry 100 01/06/23 13:23 Oxygen Delivery Room Air 01/06/23 13:23 Lab Data 01/06/23 14:25 01/06/23 14:25 Labs: Lab Results 01/06/23 01/06/23 01/06/23 Range/Units 14:25 14:25 14:25 WBC 6.1 (4.5-1
[2023-01-06 18:08] VITALS: BP 170/91; PULSE 65; RESP 16; TEMP 36.6; O2SAT 100
== END 2023-01-06 18:09 | disposition home or self-care (01) ==
PROVIDERS: Emergency Provider Emergency Medicine; PCP Family Medicine
DX: K11.21 Acute sialoadenitis (principal); R51.9 Headache, unspecified; Z87.891 Personal history of nicotine dependence
CPT/HCPCS: 36415; 71046; 80053; 85025; 85610; 85730; 93005; 96361; 96374; 99284; J1885; J7030

== ENCOUNTER 2023-03-18 13:07 | Emergency (ER) | payer OTHER, SELFPAY ==
--- NOTE | ~2023-03-18 | CT_ITS ---
EXAMINATION: CT abdomen pelvis w con DATE: 03/18/2023 15:47 INDICATION: Right lower quadrant abdominal pain TECHNIQUE: Computed tomography (CT) of the abdomen and pelvis was performed with 100 cc Omnipaque int ravenous contrast. Automated exposure control and iterative reconstruction technique were employed. E xam dose: 1510.70 mGy-cm total exam DLP. COMPARISON: 03/08/2022 CT abdomen pelvis FINDINGS: Minimal atelectasis at the lung bases. No pulmonary consolidation or pleural effusion. No rmal heart size. No pericardial or pleural effusion. No hepatic, splenic, pancreatic, adrenal or renal space-occupying mass lesion. No bile duct or pancre atic duct dilatation. No urinary tract calculus or hydroureteronephrosis is detected. The urinary macria dder is unremarkable. Status post hysterectomy. Probable appendectomy. No bowel obstruction, bowel wall thickening, pneumatosis or intraperitoneal fr ee air. Small fat-containing umbilical hernia. Included skeletal structures are unremarkable. IMPRESSION: Probable appendectomy Status post hysterectomy Reviewed, dictated and finalized at [facility] Reviewed, dictated and finalized at [facility].
[2023-03-18 13:14] VITALS: BP 150/90; PULSE 94; RESP 18; TEMP 36.8; O2SAT 100
[2023-03-18 13:33] LABS: Basophils Percent Auto 0.6 % (0.2-1.2); Eosinophils Absolute Auto 0.2 K/mm3 (0-0.3); Eosinophils Percent Auto 2.7 % (0-4.4); Hematocrit 40.3 % (37.0-47.0); Hemoglobin 12.8 g/dL (12.0-15.0); Immature Granulocyte Absolute 0.01 K/mm3 (0.00-0.031); Immature Granulocyte Percent A 0.2 % (0-0.5); Lymphocytes Absolute Auto 2.83 K/mm3 (0.9-3.2); Lymphocytes Percent Auto 44.9 % (18.3-44.2); Mean Corpuscular HGB Conc 31.8 g/dl (32-36); Mean Corpuscular Volume 88.2 fl (80-100); Mean Platelet Volume 9.6 fl (7.4-10.4); Monocytes Absolute Auto 0.4 K/mm3 (0.1-0.6); Monocytes Percent Auto 6.2 % (2.6-8.5); Neutrophils Absolute Auto 2.9 K/mm3 (1.3-6.7); Neutrophils Percent Auto 45.4 % (45.5-73.1); Platelet Count Result 451 k/mm3 (150-375); Red Blood Count 4.57 M/mm3 (4.2-5.4); Red Cell Distribution Width 14.6 % (11.5-14.5); White Blood Count 6.3 K/mm3 (4.5-10.0)
[2023-03-18 13:54] LABS: Alanine Aminotransferase 17 U/L (6-35); Albumin Level 4.2 g/dL (3.5-5.1); Alkaline Phosphatase 64 U/L (38-126); Anion Gap 3 mmol/L (8-16); Aspartate Amino Transferase 21 U/L (14-36); Bilirubin,Total 0.5 mg/dL (0.2-1.3); Blood Urea Nitrogen 8 mg/dL (7-17); Calcium 8.1 mg/dL (8.4-10.2); Carbon Dioxide 29 mmol/L (22-30); Chloride 105 mmol/L (98-107); Estimated CRCL calculation 135 ml/min; Estimated Glomerular Filt Rate > 60; Glucose 115 mg/dL (65-110); Lipase 55 U/L (23-300); Potassium 3.5 mmol/L (3.4-5.0); Sodium 137 mmol/L (137-145)
[2023-03-18 14:00] LABS: Appearance Urine Cloudy (Clear); Bacteria Urine 1+ /hpf; Bilirubin Urine Negative (Negative); Blood Urine Negative (Negative); Color Urine Yellow (Yellow); Glucose Urine UA Negative (Negative); Ketones Urine Trace mg/dL (Negative); Leukocyte Esterase Ur Negative LEU/UL (Negative); Nitrate Urine Negative (Negative); Non Pathogenic Casts 0-2; Protein Urine Negative (Negative); Specific Grav Ur 1.023 (1.001-1.035); Squamous Epithelial Cell Urine Many /hpf (Few); WBC Urine 0-5 /hpf
[2023-03-18 14:25] LABS: Add Urine Microscopic? YES
--- NOTE | 2023-03-18 14:36 | ED.ABDPAIN ---
HPI - Abdominal Pain General Chief Complaint: Abdominal Pain Stated Complaint: abdominal pain Time Seen by Provider: 03/18/23 13:55 History of Present Illness HPI narrative: 37-year-old female who is s/p hysterectomy 2 years ago from [place] with complications of postoperative abscess resulting in hospitalization at [facility] for 2 months and drain placements and s/p appendectomy with perforation 1.5 years ago reports for evaluation of right lower quadrant pain that started last night. Patient reports the pain started before she ate dinner and described it as a discomfort . She states she then ate [place] food, took ibuprofen without relief and went to bed. Reports she woke up around 3 AM with worsening sharp pains in her right lower quadrant that has not let up since. Stating her pain is an 8/10 and radiates up into her right shoulder. She denies history of cholecystectomy or gallbladder disease. States eating and drinking does not make the pain better or worse. She has not taken anything for pain today. Denies nausea, vomiting, chest pain or shortness of breath, fevers, bodyaches or chills, urinary complaints, hematochezia or melena. Past abdominal surgeries include hysterectomy, appendectomy, section, hernia repair. Last bowel movement was this morning and normal. Related Data Allergies Allergy/AdvReac Type Severity Reaction Status Date / Time peanut Allergy Severe Anaphylaxis Verified 03/18/23 13:08 morphine Allergy Unknown Unknown Verified 03/18/23 13:08 Penicillins Allergy Unknown Unknown Verified 03/18/23 13:08 Review of Systems Review of Systems: CONSTITUTIONAL: Denies fever, chills EYES: Denies visual changes, redness, or discharge. ENT: Denies rhinorrhea, congestion, sore throat, or otalgia. CARDIOVASCULAR: Denies chest pain, palpitations, or edema. RESPIRATORY: Denies cough or dyspnea. GASTROINTESTINAL: See HPI GENITOURINARY: Denies dysuria or hematuria. SKIN: Denies rash or itching. MUSCULOSKELETAL: Denies back pain, joint pain, or myalgia. NEUROLOGIC: Denies headache, numbness, dizziness, or weakness. PSYCHIATRIC: Denies anxiety or depression. [facility] Past Medical History Medical History Anemia Anxiety DVT (deep venous thrombosis) Migraine headache Morbid obesity with BMI of 40.0-44.9, adult Uterine fibroid UTI (urinary tract infection) Surgical History Surgical History H/O tubal ligation Previous section Family History Family History Father Diabetes mellitus Hypertension Mother History of blood clots Cerebrovascular accident Social History Social History Smoking packs per day: 0.5 Smoking cigarettes per day: 10.0 Years smoked: 15 Smoking pack-years: 7.50 Smoking status: Former smoker Tobacco type: cigarettes Alcohol intake: never Substance use: former Substance use type: marijuana Other substance usage details: Drinks one glass of wine about every 3 months. Last use: 05/2020 Gender identity (if verbalized by the patient): Female Sexual Orientation (if Verbalized by the Patient): Straight or Heterosexual Spiritual care concerns: No Exam Narrative: GENERAL: Well-appearing, in no acute distress. HEAD: Normocephalic EYES: PERRLA ENT: Nares clear. Mucous membranes moist. Oropharynx without tonsillar hypertrophy exudate or other lesions. NECK: Supple. CHEST: No respiratory distress. Clear to auscultation, no adventitious breath sounds. HEART: Regular rate and rhythm. No murmur heard. Normal peripheral pulses. ABDOMEN: Normal active bowel sounds. Abdomen soft with tenderness in the right lower quadrant. No guarding or rigidity, no rebound tenderness. Palpation of the right upper quadrant elicits pain in the right should
[2023-03-18] MEDS: SODIUM CHLORIDE 0.9% IV 1,000 ML 999 ML IV CONT (15:14)
[2023-03-18] MEDS: KETOROLAC 30 MG/ML VIAL (*BKC) IV PUSH (15:14)
[2023-03-18 16:57] LABS: Magnesium 2.1 mg/dL (1.6-2.3); Phosphorus 2.8 mg/dL (2.5-4.5)
[2023-03-18] MEDS: HYDROmorphone HCL INJ (*CRX) 1 MG/ML SYR 0.5 MG IV PUSH (17:23)
[2023-03-18 17:29] VITALS: BP 141/90; PULSE 82; RESP 18; O2SAT 100
== END 2023-03-18 17:52 | disposition home or self-care (01) ==
PROVIDERS: Emergency Medicine; Emergency Provider Physician Assistant; PCP Family Medicine
DX: R10.31 Right lower quadrant pain (principal); E66.01 Morbid (severe) obesity due to excess calories; Z68.41 Body mass index [BMI] 40.0-44.9, adult; Z87.440 Personal history of urinary (tract) infections; Z86.718 Personal history of other venous thrombosis and embolism; Z86.2 Personal history of diseases of the blood and blood-forming organs and certain disorders involving the immune mechanism; Z87.891 Personal history of nicotine dependence; Z90.710 Acquired absence of both cervix and uterus
CPT/HCPCS: 36415; 74177; 80053; 81001; 83690; 83735; 84100; 85025; 96361; 96374; 96375; 99284; J1170; J1885; J7030; Q9967

== ENCOUNTER 2023-04-28 11:34 | Emergency (ER) | payer OTHER, SELFPAY ==
[2023-04-28 11:36] VITALS: BP 154/87; PULSE 99; RESP 20; TEMP 36.1; O2SAT 100
[2023-04-28] MEDS: SODIUM CHLORIDE 0.9% IV 1,000 ML 999 ML IV CONT (13:35)
[2023-04-28] MEDS: METOCLOPRAMIDE HCL INJ 10 MG/2 ML VIAL IV PUSH (13:36)
[2023-04-28] MEDS: diphenhydrAMINE HCl INJ 50 MG/ML VIAL 25 MG IV PUSH (13:36)
[2023-04-28] MEDS: TETRACAINE HCL 0.5% OPHTH SOLN 4 ML BTL 1 DROP EACH EYE (13:36)
[2023-04-28] MEDS: ACETAMINOPHEN 500 MG TABLET 1000 MG PO (13:37)
[2023-04-28] MEDS: FLUORESCEIN SOD 1 MG/STRIP EACH EYE (13:37)
--- NOTE | 2023-04-28 13:58 | ED.EYEPROB ---
HPI - Eye Problem General Chief complaint: Eye Problems Stated complaint: right eye swelling Time Seen by Provider: 04/28/23 12:32 Source: patient Mode of arrival: ambulatory Limitations: no limitations History of Present Illness HPI Narrative: Patient is a 37-year-old female who presents to the ED with report of right eyelid swelling and pain. Patient reports she was sitting outside last night and felt like a bug hit her on her eyelid. She noticed some irritation to the eye yesterday, but woke up this morning with swelling of her right upper eyelid, redness to right eye, watery tearing. She states she has difficulty focusing with her right eye, but denies visual loss or changes. Patient also reports having a migraine headache which she states stems from her right eye. She does have history of migraines. She tried taking sumatriptan this morning without relief. Denies dizziness, lightheadedness, neck pain, fevers, numbness, weakness. Related Data Allergies Allergy/AdvReac Type Severity Reaction Status Date / Time peanut Allergy Severe Anaphylaxis Verified 04/28/23 11:35 morphine Allergy Unknown Unknown Verified 04/28/23 11:35 Penicillins Allergy Unknown Unknown Verified 04/28/23 11:35 Review of Systems Review of Systems: CONSTITUTIONAL: Denies fever, chills, or sweats. EYES: See HPI. CARDIOVASCULAR: Denies chest pain. RESPIRATORY: Denies dyspnea. GASTROINTESTINAL: Denies nausea, vomiting. MUSCULOSKELETAL: Denies back pain, joint pain, or myalgia. NEUROLOGIC: See HPI. All systems reviewed & are unremarkable except as noted in HPI and below PMFSH Past Medical History Medical History Anemia Anxiety DVT (deep venous thrombosis) Migraine headache Morbid obesity with BMI of 40.0-44.9, adult Uterine fibroid UTI (urinary tract infection) Surgical History Surgical History H/O tubal ligation Previous section Family History Family History Father Diabetes mellitus Hypertension Mother History of blood clots Cerebrovascular accident Social History Social History Smoking packs per day: 0.5 Smoking cigarettes per day: 10.0 Years smoked: 15 Smoking pack-years: 7.50 Smoking status: Former smoker Tobacco type: cigarettes Alcohol intake: never Substance use: former Substance use type: marijuana Other substance usage details: Drinks one glass of wine about every 3 months. Last use: 05/2020 Gender identity (if verbalized by the patient): Female Sexual Orientation (if Verbalized by the Patient): Straight or Heterosexual Spiritual care concerns: No Exam Narrative: GENERAL: Well appearing, morbidly obese with BMI of 41.8, non-toxic, in no acute distress. HEAD: Normocephalic, atraumatic. EYES: PERRLA/EOMI, right-sided conjunctival injection. Mild watery discharge from right eye. No obvious foreign body. Swelling noted to right upper eyelid with stye formation along upper inner eyelid, pustular head present along eyelid, tender to palpation. No significant periorbital edema. No periorbital erythema. NECK: Supple. No adenopathy, no masses. No meningeal signs. RESPIRATORY: Airway patent, respirations nonlabored. Clear to auscultation bilaterally, no rales, rhonchi, wheezing. CARDIOVASCULAR: Regular rate and rhythm without murmurs, rubs, or gallops. Radial pulses 2+ and equal bilaterally. MUSCULOSKELETAL: Moves all extremities. Strength/ROM intact without gross deformities. SKIN: Warm, dry, normal color. No rashes. NEURO: A&O X3. Speech clear. Cranial nerves II-XII grossly intact. Steady gait. No ataxic movements. No focal neurologic deficits. PSYCHIATRIC: Appropriate mood and affect. Normal interaction. Course Vital Signs Vital signs: Vital
== END 2023-04-28 15:40 | disposition home or self-care (01) ==
PROVIDERS: Emergency Provider Physician Assistant; PCP Family Medicine
DX: H00.011 Hordeolum externum right upper eyelid (principal); G43.909 Migraine, unspecified, not intractable, without status migrainosus; E66.01 Morbid (severe) obesity due to excess calories; Z68.41 Body mass index [BMI] 40.0-44.9, adult; Z86.718 Personal history of other venous thrombosis and embolism; Z86.2 Personal history of diseases of the blood and blood-forming organs and certain disorders involving the immune mechanism; Z87.440 Personal history of urinary (tract) infections; Z87.891 Personal history of nicotine dependence
CPT/HCPCS: 96361; 96374; 96375; 99284; A9270; J1200; J2765; J7030

== ENCOUNTER 2023-06-17 08:59 | Emergency (ER) | payer OTHER, SELFPAY ==
[2023-06-17 09:22] VITALS: BP 132/101; PULSE 93; RESP 16; TEMP 36.6; O2SAT 100
--- NOTE | 2023-06-17 10:57 | ED.GENADULT ---
HPI - General Adult General Chief complaint: Unspecified Stated complaint: Bodyaches Time Seen by Provider: 06/17/23 10:57 Source: patient Mode of arrival: ambulatory Limitations: no limitations History of Present Illness HPI narrative: Porsche is a 37-year-old female patient presenting to the clinic today with complaints of body aches, nausea, vomiting, chills, and headache x1 day. She reports that she has taken Tylenol Motrin without relief. Also had put Vicks vapor rub on her chest yesterday and that worsened her breathing. She denies any shortness of breath or chest pain currently pain Related Data Allergies Allergy/AdvReac Type Severity Reaction Status Date / Time peanut Allergy Severe Anaphylaxis Verified 04/28/23 11:35 morphine Allergy Unknown Unknown Verified 04/28/23 11:35 Penicillins Allergy Unknown Unknown Verified 04/28/23 11:35 Review of Systems Review of Systems: Pertinent positives per HPI. Patient denies any rash,visual changes, dizziness, shortness of breath, chest pain, palpitations, nausea, vomiting, diarrhea, constipation, abdominal pain, or any urinary issues. [facility] Past Medical History Medical History Anemia Anxiety DVT (deep venous thrombosis) Migraine headache Morbid obesity with BMI of 40.0-44.9, adult Uterine fibroid UTI (urinary tract infection) Surgical History Surgical History H/O tubal ligation Previous section Family History Family History Father Diabetes mellitus Hypertension Mother History of blood clots Cerebrovascular accident Social History Social History Smoking packs per day: 0.5 Smoking cigarettes per day: 10.0 Years smoked: 15 Smoking pack-years: 7.50 Smoking status: Former smoker Tobacco type: cigarettes Alcohol intake: never Substance use: former Substance use type: marijuana Other substance usage details: Drinks one glass of wine about every 3 months. Last use: 05/2020 Gender identity (if verbalized by the patient): Female Sexual Orientation (if Verbalized by the Patient): Straight or Heterosexual Spiritual care concerns: No Comments At the time of my signature, I reviewed and agree with the nursing past medical, surgical, social, and family history. There is no relevant family history pertinent to the patient complaint. Exam Narrative: General: Well-developed, well nourished, in no apparent distress Head: Normocephalic, atraumatic Eyes: Pupils equally round and reactive to light bilaterally, EOM intact, sclera and conjunctive clear, no discharge, lids normal Ears: TMs intact and clear, ear canals clear, no drainage, grossly hearing normal. Nose: Nares patent, clear nasal discharge, no inflammation, no sinus tenderness. Mouth: Oral pharynx red without lesions or masses, good dentition, MMM. Neck: Supple, trachea midline, no enlargement of anterior or posterior cervical nodes, no thyroid masses or goiter palpable. Cardio: Regular rate and rhythm, s1 and s2 normal, no murmur appreciated. Resp: Clear to auscultation bilaterally, no rhonchi, rales, wheezing or rubs Course Course Emergency Course: Portions of this record may have been created with voice recognition software. Vital Signs Vital signs: Vital Signs Temperature 36.6 C 06/17/23 09:22 Pulse Rate 93 06/17/23 09:22 Respiratory Rate 16 06/17/23 09:22 Blood Pressure 132/101 H 06/17/23 09:22 Pulse Oximetry 100 06/17/23 09:22 Oxygen Delivery Room Air 06/17/23 09:22 Temperature 36.6 C 06/17/23 09:22 Pulse Rate 93 06/17/23 09:22 Respiratory Rate 16 06/17/23 09:22 Blood Pressure 132/101 H 06/17/23 09:22 Pulse Oximetry 100 06/17/23 09:22 Oxygen Delivery Room Air
[2023-06-17 11:09] LABS: Influenza A QL RT-PCR Negative (Negative); Influenza B QL RT-PCR Negative (Negative); SARS-CoV-2 RNA PCR Positive (Negative)
[2023-06-17 11:38] LABS: Strep Group A RT-PCR NOT DETECTED (Negative)
== END 2023-06-17 11:57 | disposition home or self-care (01) ==
PROVIDERS: Emergency Medicine; Emergency Provider Nurse Practitioner Family; PCP Family Medicine
DX: U07.1 COVID-19 (principal); E66.01 Morbid (severe) obesity due to excess calories; Z86.718 Personal history of other venous thrombosis and embolism; Z86.2 Personal history of diseases of the blood and blood-forming organs and certain disorders involving the immune mechanism; Z87.440 Personal history of urinary (tract) infections; Z87.891 Personal history of nicotine dependence
CPT/HCPCS: 87636; 87651; 99283

== ENCOUNTER 2024-04-03 13:54 | Emergency (ER) | payer OTHER, SELFPAY ==
--- NOTE | ~2024-04-03 | CT_ITS ---
CT lumbar spine wo con Ordering provider: Gena Lewis MD History: 38 years Female with . acute back pain, radiculopathy . Comparison: None. Technique: CT lumbar spine without contrast. Automated exposure control and iterative reconstruction technique were employed. The dose-length product was 1210.41 mGy-cm. FINDINGS: VERTEBRAE: Normal height and alignment. No subluxation or visible acute fracture. Mild levoscoliosis. DISC SPACES: Well maintained. T12-L1: No stenosis. L1-L2: No stenosis. L2-L3: No stenosis. L3-L4: No stenosis. L4-L5: No stenosis. L5-S1: No stenosis. Mild diffuse disc bulge. PARASPINOUS SOFT TISSUES: Mild atheromatous disease of the abdominal aorta. Mild bilateral sacroiliacs. IMPRESSION: No acute osseous abnormality. Mild diffuse disc bulge at the level of L5-S1. Provided that there are no contraindications, consider follow up MRI lumbar spine if the patient has continued back pain and there is clincal concern for neural impingement/spinal stenosis. Reviewed, dictated and finalized at [facility] IMPRESSION: No acute osseous abnormality. Mild diffuse disc bulge at the level of L5-S1. Provided that there are no contraindications, consider follow up MRI lumbar spi ne if the patient has continued back pain and there is clincal concern for neur al impingement/spinal stenosis.
[2024-04-03 13:56] VITALS: BP 144/89; PULSE 106; RESP 20; TEMP 36.3; O2SAT 100
--- NOTE | 2024-04-03 17:00 | PC.NURSE ---
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 SHE BECAME WEIGHT AND SHE HAD TO ABRUPTLY HAD TO HOLD HER IN HER L ARM. NOW SHE IS HAVING PAIN RADIATING DOWN NECK TO LOWER BACK AND LEFT LEG. DENIES ANY BOWEL OR BLADDER INCONTINENCE. TYLENOL AND IBUPROFEN OFFER NO RELIEF.
--- NOTE | 2024-04-03 18:36 | ED.BACK ---
HPI - Back Pain/Injury General Chief Complaint: Back Pain/Injury Stated Complaint: migraine, back pain Time Seen by Provider: 04/03/24 17:54 Source: patient, RN notes reviewed and old records reviewed Mode of arrival: ambulatory Limitations: no limitations History of Present Illness HPI Narrative: This is a 38 year old female with history of migraines who presents for evaluation of left lower back pain. 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 She states she was lifting a patient and then patient put all their weight on her. She reports feeling a pop to her lower back when this happened. She is having pain to mid to left lower back, and she reports pain radiates to her left foot. She denies urinary incontinence, dysuria or frequency. She denies fever, chills. She had a migraine headache but it resolved yesterday. She states she took 800 mg ibuprofen yesterday without any relief. MD elicited complaint: back pain Related Data Allergies Allergy/AdvReac Type Severity Reaction Status Date / Time peanut Allergy Severe Anaphylaxis Verified 04/03/24 13:57 morphine Allergy Unknown Unknown Verified 04/03/24 13:57 Penicillins Allergy Unknown Unknown Verified 04/03/24 13:57 Review of Systems Constitutional: Constitutional: Denies weakness Cardiovascular: Cardiovascular: Denies syncope, Denies rapid heart rate, Denies irregular heart rhythm, Denies leg edema and Denies dyspnea Respiratory: Respiratory: Denies chest congestion, Denies hemoptysis, Denies excessive phlegm production and Denies dyspnea Gastrointestinal: Gastrointestinal: Denies abdominal pain, Denies hematochezia, Denies diarrhea and Denies vomiting Genitourinary: Genitourinary: Denies hematuria and Denies dysuria Musculoskeletal: Musculoskeletal: Reports back pain, Denies joint swelling, Denies loss of height and Denies muscle weakness Neurologic: Denies syncope, Reports headache(s) (chronic), Denies focal weakness and Denies weakness PMFSH Past Medical History Medical History Anemia Anxiety DVT (deep venous thrombosis) Migraine headache Morbid obesity with BMI of 40.0-44.9, adult Uterine fibroid UTI (urinary tract infection) Surgical History Surgical History H/O tubal ligation Previous section Family History Family History Father Diabetes mellitus Hypertension Mother History of blood clots Cerebrovascular accident Social History Social History Smoking packs per day: 0.5 Smoking cigarettes per day: 10.0 Years smoked: 15 Smoking pack-years: 7.50 Smoking status: Former smoker Tobacco type: cigarettes Alcohol intake: never Substance use: former Substance use type: marijuana Other substance usage details: Drinks one glass of wine about every 3 months. Last use: 05/2020 Gender identity (if verbalized by the patient): Female Sexual Orientation (if Verbalized by the Patient): Straight or Heterosexual Spiritual care concerns: No Exam Const: General: no acute distress and alert Nutritional Appearance: well nourished and obese Orientation/consciousness: patient oriented x3 HENMT: Head: normal to inspection Eyes: EOM: EOMs intact bilaterally Resp: Effort & Inspection: normal respiratory effort GI: GI Palp: Yes Soft to palpation, No Tenderness to palpation present (GI), No Guarding due to palpation present (GI) and No Rigid due to palpation Auscultation: normal bowel sounds Back/Spine/Pelvis: Back: no CVA tenderness Thoracic/Lumbar Spine: paraspinal muscle tenderness on the left and lumbar spinal tenderness Skin: General skin exam: normal color Rashes: no rashes Wounds: no wounds Neuro: General: patient oriented x3, moves all extremities, no meningeal signs, no focal motor deficits and CN's II-XI
[2024-04-03] MEDS: KETOROLAC (*BKC) 60 MG/2 ML VIAL IM (18:39)
== END 2024-04-03 19:25 | disposition home or self-care (01) ==
PROVIDERS: Emergency Provider General Practice; PCP Family Medicine
DX: M54.16 Radiculopathy, lumbar region (principal); Z87.891 Personal history of nicotine dependence
CPT/HCPCS: 72131; 96372; 99284; J1885

== ENCOUNTER 2024-04-17 07:59 | Emergency (ER) | payer OTHER, SELFPAY ==
[2024-04-17 08:02] VITALS: BP 153/103; PULSE 103; RESP 20; O2SAT 98
[2024-04-17] MEDS: SODIUM CHLORIDE 0.9% IV 1,000 ML 999 ML IV CONT (08:19)
[2024-04-17] MEDS: KETOROLAC 30 MG/ML VIAL (*BKC) IV PUSH (08:20)
[2024-04-17 08:24] VITALS: RESP 20
[2024-04-17 09:05] LABS: Influenza A QL RT-PCR Negative (Negative); Influenza B QL RT-PCR Negative (Negative); RSV RNA, RT-PCR Negative (Negative); SARS-CoV-2 RNA PCR Positive (Negative)
--- NOTE | 2024-04-17 09:34 | ED.GENADULT ---
HPI - General Adult General Chief complaint: Unspecified Stated complaint: multiple complaints Time Seen by Provider: 04/17/24 08:01 History of Present Illness HPI narrative: Patient is a 38-year-old female who presents ER with body aches x2 days. Today she developed headache and feels incredibly hot. No documented fevers. She feels like she has some tingling in her fingers. Of note patient was seen couple weeks ago for back pain but did not case picker her pain medication. She reports mild rhinorrhea. No sore throat. No chest pain. Related Data Allergies Allergy/AdvReac Type Severity Reaction Status Date / Time peanut Allergy Severe Anaphylaxis Verified 04/03/24 13:57 morphine Allergy Unknown Unknown Verified 04/03/24 13:57 Penicillins Allergy Unknown Unknown Verified 04/03/24 13:57 Review of Systems Review of Systems: All systems reviewed & are unremarkable except as noted in HPI and below Constitutional: Constitutional: Denies chills, Reports fatigue and Reports fever(s) ENT: Reports nasal congestion and Denies sore throat Cardiovascular: Cardiovascular: Reports no additional cardiovascular complaints Respiratory: Respiratory: Reports no additional respiratory complaints Gastrointestinal: Gastrointestinal: Reports no additional gastrointestinal complaints [facility] Past Medical History Medical History Anemia Anxiety DVT (deep venous thrombosis) Migraine headache Morbid obesity with BMI of 40.0-44.9, adult Uterine fibroid UTI (urinary tract infection) Surgical History Surgical History H/O tubal ligation Previous section Family History Family History Father Diabetes mellitus Hypertension Mother History of blood clots Cerebrovascular accident Social History Social History Smoking packs per day: 0.5 Smoking cigarettes per day: 10.0 Years smoked: 15 Smoking pack-years: 7.50 Smoking status: Former smoker Tobacco type: cigarettes Alcohol intake: never Substance use: former Substance use type: marijuana Other substance usage details: Drinks one glass of wine about every 3 months. Last use: 05/2020 Gender identity (if verbalized by the patient): Female Sexual Orientation (if Verbalized by the Patient): Straight or Heterosexual Spiritual care concerns: No Exam Narrative: GENERAL: Well-appearing, well-nourished, and in no acute distress. HEAD: Normocephalic, atraumatic. ENT: Mucous membranes moist. CHEST: Clear to auscultation. No respiratory distress. HEART: Tachycardic and regular. Normal peripheral pulses. EXTREMITIES: Normal range of motion. No edema. SKIN: Warm, dry, no rash. NEURO: Alert and oriented x3. PSYCH: Normal mood and affect. Course Course Emergency Course: patient hydrated and received Toradol. She does have COVID. Educated on isolation and then wearing a mask. Vital Signs Vital signs: Vital Signs Pulse Rate 103 H 04/17/24 08:02 Respiratory Rate 20 04/17/24 08:02 Blood Pressure 153/103 H 04/17/24 08:02 Pulse Oximetry 98 04/17/24 08:02 Oxygen Delivery Room Air 04/17/24 08:02 Pulse Rate 103 H 04/17/24 08:02 Respiratory Rate 20 04/17/24 08:24 Blood Pressure 153/103 H 04/17/24 08:02 Pulse Oximetry 98 04/17/24 08:02 Oxygen Delivery Room Air 04/17/24 08:02 Medical Decision Making Vital Signs Vital Signs: Vital Signs Pulse Rate 103 H 04/17/24 08:02 Respiratory Rate 20 04/17/24 08:02 Blood Pressure 153/103 H 04/17/24 08:02 Pulse Oximetry 98 04/17/24 08:02 Oxygen Delivery Room Air 04/17/24 08:02 Pulse Rate 103 H 04/17/24 08:02 Respiratory Rate 20 04/17/24 08:24 Blood Pressure 153/103 H 04/17/24 08:02 Pulse Oximetry 98 04/17/24 08:02 Oxyge
== END 2024-04-17 09:55 | disposition home or self-care (01) ==
PROVIDERS: Emergency Provider Emergency Medicine; PCP Family Medicine
DX: U07.1 COVID-19 (principal); D64.9 Anemia, unspecified; F41.9 Anxiety disorder, unspecified; Z86.718 Personal history of other venous thrombosis and embolism; Z87.440 Personal history of urinary (tract) infections
CPT/HCPCS: 87637; 96361; 96374; 99284; J1885; J7030

== ENCOUNTER 2024-08-21 00:04 | Emergency (ER) | payer OTHER, SELFPAY ==
--- NOTE | ~2024-08-21 | CT_ITS ---
CT of the Abdomen and Pelvis: Indication: Abdominal pain Technique: 2.5 mm axial scans were obtained through the abdomen and pelvis following intravenous adm inistration of 100 cc of Omnipaque 350. Dose reduction technique was used on this scan by utilizing a utomated exposure control and iterative reconstruction technique. The dose-length product (DLP) was 1 734.81 mGy-cm. COMPARISON: 03/18/2023 Findings: Scans through the lung bases are unremarkable. Diffuse hepatic steatosis is present. Small calcified gallstones. The spleen, pancreas, adrenals and kidneys are within normal limits. No evidence of aortic aneurysm. No lymphadenopathy. No bowel obstruction or bowel wall thickening. There is no evidence to suggest acute appendicitis. Sm all fat-containing umbilical hernia noted. Images through the pelvis were performed. Urinary bladder unremarkable. 4.4 cm adnexal cyst present. No other adnexal mass seen. No ascites. Impression: 4.4 cm right adnexal cyst. Cholelithiasis. Diffuse hepatic steatosis. Reviewed, dictated and finalized at [facility]. MASTER/MISTRESS Impression: 4.4 cm right adnexal cyst. Cholelithiasis. Diffuse hepatic steatosis.
[2024-08-21 00:21] VITALS: BP 151/102; PULSE 77; RESP 18; TEMP 36.6; O2SAT 100
--- NOTE | 2024-08-21 00:26 | ED_ITS ---
HPI - Abdominal Pain General Chief Complaint: Abdominal Pain Stated Complaint: abdominal pain Time Seen by Provider: 08/21/24 00:23 Source: patient Limitations: no limitations History of Present Illness HPI narrative: Patient presents with acute onset abdominal pain a bowel movement that was otherwise normal diarrhea, constipation, blood. Patient initially states that pain is generalized in everywhere she states that it is in right upper quadrant radiates to right back right shoulder. Symptoms started acutely approximately an hour ago. She does not have an appetite. She denies any nausea, vomiting fevers, chills, rectal pain. No vaginal bleeding or discharge. No dysuria, urgency frequency, hematuria. She has a history appendectomy as well a hysterectomy in 2018. She does have a known 4 cm ovarian cyst Related Data Allergies Allergy/AdvReac Type Severity Reaction Status Date / Time peanut Allergy Severe Anaphylaxis Verified 08/08/24 14:36 morphine Allergy Unknown Unknown Verified 08/08/24 14:36 Penicillins Allergy Unknown Unknown Verified 08/08/24 14:36 [facility] Past Medical History Medical History (Updated 08/21/24 @ 18:53 by Delia Cortes MD) Anemia Anxiety DVT (deep venous thrombosis) Migraine headache Morbid obesity with BMI of 40.0-44.9, adult Ovarian cyst Uterine fibroid UTI (urinary tract infection) Surgical History Surgical History H/O tubal ligation H/O: hysterectomy 2018 History of appendectomy Previous section Family History Family History Father Diabetes mellitus Hypertension Mother History of blood clots Cerebrovascular accident Social History Social History (Updated 08/21/24 @ 02:57 by Delia Cortes MD) Smoking packs per day: 0.5 Smoking cigarettes per day: 10.0 Years smoked: 15 Smoking pack-years: 7.50 Smoking status: Former smoker Tobacco type: cigarettes Alcohol intake: never Substance use: former Substance use type: marijuana Other substance usage details: Drinks one glass of wine about every 3 months. Last use: 05/2020 Living arrangements: with family Occupation/Education: occupation Additional occupation/education comments: Works in [employer] Gender identity (if verbalized by the patient): Female Sexual Orientation (if Verbalized by the Patient): Straight or Heterosexual Spiritual care concerns: No Exam Narrative: GENERAL: Well-appearing, well-nourished, in moderate acute distress, slightly writhing but also groaning HEAD: Normocephalic, atraumatic. EYES: Non injected, non icteric ENT: Nares clear, no rhinorrhea or epistaxis. NECK: Supple. CHEST: Speaking in full sentences. No respiratory distress. HEART: Regular rate and rhythm. . ABDOMEN: morbidly obese but Soft, nondistended. generalized tenderness palpation to palpation throughout but without rigidity or guarding. Not peritoneal. EXTREMITIES: Normal range of motion. No lower extremity edema. SKIN: Warm, dry, no rash. NEURO: No focal deficits. Alert and oriented x3. PSYCH: Normal mood and affect. Course Vital Signs Vital signs: Vital Signs Temperature 97.8 F 08/21/24 00:21 Pulse Rate 77 08/21/24 00:21 Respiratory Rate 18 08/21/24 00:21 Blood Pressure 151/102 H 08/21/24 00:21 Pulse Oximetry 100 08/21/24 00:21 Temperature 98 F 08/21/24 02:10 Pulse Rate 71 08/21/24 02:10 Respiratory Rate 16 08/21/24 02:10 Blood Pressure 158/101 H 08/21/24 02:10 Pulse Oximetry 100 08/21/24 02:10 MDM - Abdominal Pain MDM Narrative Medical decision making narrative: Patient presents with acute onset abdominal pain she initially states is everywhere although she is able to localize it to the right upper quadrant with radiation to right back and right shoulder. Symptoms started acutely after having a bowel movement. In the emergency department she is afebrile with vital signs notable for hypertension. Patient has associated back and right shoulder pain does suggest the referred pain related to a biliary etiology. Additionally, she has the risk factors of female gender, approaching 40 years old, and obesity. She states she had chicken fettucini for dinner. She has an isolated elevated ALT. Pain comes and goes in waves. This is also suggestive of cholelithiasis with biliary colic and might also be exacerbated by the evidence of 5.7 cm of stool in the right colon which probably is also causing some pain with peristalsis. Otherwise however, lower suspicion for choledocholithiasis at this time and CT scan did not demonstrate pericholecystic fluid and other associated findings. (Plus, no leukocytosis). Patient given analgesic medication in the form opiates, acetaminophen, and ketorolac. We did talk through the many findings of her CT scan, though none appear to be surgical emergencies. She verifies understanding. We discussed that the treatment is analgesic medication in addition to antiemetics as necessary and discharge home with follow-up in the outpatient setting with general surgeon to consider elective cholecystectomy. she verifies understanding. Stable for discharge in observed ambulating with steady gait. Differential Diagnosis Differential diagnosis: Likely abdominal pain, calculus of kidney, constipation, diverticulitis, pancreatitis and other (Biliary etiology; spontaneous perforation; considered ovarian torsion given history cyst however pain is primarily RUQ) Medical Records Attestation: I reviewed the patient's medical records. Medical records narrative: Patient recently some her Ob Gyne Dr Luo for an ovarian cyst 4.5 cm. They had discussed this at length and plan was to obtain repeat imaging. OB Gyne thought that some of her constant dull achy pain was due to vaginitis given thick white clumpy discharge on exam. Lab Data Attestation: I reviewed the patient's lab results. Lab results narrative: Mild thrombocytosis although markedly improved from what has previously been a appreciated per review of EMR Elevated ALT, isolated Hyperglycemia without anion gap or acidosis 08/21/24 00:23 08/21/24 00:23 Labs: Lab Results 08/21/24 08/21/24 Range/Units 00:23 00:32 WBC 6.6 (4.5-10.0) K/mm3 RBC 4.30 (4.2-5.4) M/mm3 Hgb 12.3 (12.0-15.0) g/dL Hct 38.0 (37.0-47.0) % MCV 88.4 (80-100) fl MCH 28.6 (26-34) pg MCHC 32.4 (32-36) g/dl RDW 14.2 (11.5-14.5) % Plt Count 377 H (150-375) k/mm3 MPV 9.3 (7.4-10.4) fl Immature Gran % (Auto) 0.3 (0-0.5) % Neut % (Auto) 36.2 L (45.5-73.1) % Lymph % (Auto) 53.6 H (18.3-44.2) % [place] % (Auto) 7.0 (2.6-8.5) % Eos % (Auto) 2.3 (0-4.4) % Baso % (Auto) 0.6 (0.2-1.2) % Lymph # (Auto) 3.52 H (0.9-3.2) K/mm3 [place] # (Auto) 0.5 (0.1-0.6) K/mm3 Eos # (Auto) 0.2 (0-0.3) K/mm3 Baso # (Auto) 0.0 (0.0-0.1) K/mm3 Abs Immat Gran (auto) 0.02 (0.00-0.031) K/mm3 Absolute Neuts (auto) 2.4 (1.3-6.7) K/mm3 Absolute Nucleated RBC 0.000 (0.0-0.012) K/mm3 Nucleated RBC % 0.0 (0.0-0.2) % Sodium 137 (137-145) mmol/L Potassium 3.4 (3.4-5.0) mmol/L Chloride 103 (98-107) mmol/L Carbon Dioxide 29 (22-30) mmol/L Anion Gap 5 (4-12) mmol/L BUN 12 (7-17) mg/dL Creatinine 0.80 (0.7-1.0) mg/dL Estim Creat Clear Calc 103 ml/min Estimated GFR > 60 (59 - ) Glucose 155 H (65-110) mg/dL Calcium 8.5 (8.4-10.2) mg/dL Total Bilirubin 0.3 (0.2-1.3) mg/dL AST 36 (14-36) U/L ALT 44 H (6-35) U/L Alkaline Phosphatase 80 (38-126) U/L Total Protein 8.0 (6.3-8.2) g/dL Albumin 4.0 (3.5-5.1) g/dL Lipase 111 (23-300) U/L Urine Color Yellow (Yellow) Urine Appearance Turbid H (Clear) Urine pH 8.0 (5.0-9.0) Ur Specific [place] 1.024 (1.001-1.035) Urine Protein Trace (Negative) mg/dL Urine Glucose (UA) Negative (Negative) mg/dL Urine Ketones Negative (Negative) mg/dL Ur Blood (Man) Negative (Negative) Urine Nitrate Negative (Negative) Urine Bilirubin Negative (Negative) Urine Urobilinogen 1.0 (<2.0) mg/dL Leukocyte Esterase Rfl Negative (Negative) ALICIA/UL Urine RBC 0-2 (0-2) /hpf Urine WBC 0-5 (0-3) /hpf Ur Squamous Epith Cells Few (Few) /hpf Urine Bacteria None seen /hpf Urine Casts 0-2 POC Urine HCG, Qual Negative (Negative) Imaging Data Attestation: I personally reviewed and interpreted this imaging study as follows: Radiologist's impression: ITS Impressions Abdomen/Pelvis CT 08/21/24 05:38 Impression: 4.4 cm right adnexal cyst. Cholelithiasis. Diffuse hepatic steatosis. CT Abd/Pelvis with contrast STAT RAD: The appendix appears to have been removed. 5.7 cm of stool in right colon is within normal limits. The left colon is completely decompressed which gives the appearance of slight wall thickening. No definite surrounding inflammation is seen but mild colitis cannot be excluded. No pneumoperitoneum, free fluid, or abscess seen There is fatty infiltration of liver and hepatomegaly with the liver measuring 21 cm craniocaudad. No focal liver lesion is seen. There is a 11 mm calcified gallstone in the dependent portion of a nondilated gallbladder. No pericholecystic inflammation or biliary duct dilation is identified. The pancreas, spleen, adrenal glands, and kidneys are all within normal limits. The abdominal aorta is nondilated. There is a 4 cm right ovarian cyst or follicle, larger than previous. The uterus is absent. No free fluid in the pelvis. Skeletal structures are unremarkable. Incidental Findings: 1.9 cm fat containing umbilical hernia, similar to previous without signs of inflammation. Discharge Plan Discharge Clinical Impression: Biliary colic, Thrombocytosis, Elevated ALT measurement, Hyperglycemia, Fatty liver, Hepatomegaly, Unspecified ovarian cyst, right side, Hernia, umbilical Cholelithiasis Qualifiers: Cholelithiasis location: gallbladder Patient Disposition: Home, Self-Care Condition: Stable Instructions: Antibiotic Form, Ovarian Cyst (ED), Biliary Colic (ED), Gallstones (ED), Umbilical Hernia (ED), Non-Alcoholic Fatty Liver Disease (ED) Additional Instructions: It is safe to take acetaminophen/Tylenol (maximal 4000 mg per day) with NSAIDs such as Motrin/ibuprofen and when taken together these can create a more powerful affect for pain and inflammation. Use the oral disintegrating tablets of ondansetron/Zofran for any nausea or vomiting. Follow-up with the general surgeon listed below in the outpatient setting for consideration of a future elective cholecystectomy (gallbladder removal). Return to the emergency department with any new or worsening or unmanaged symptoms as this may indicate a need for more urgent/emergent removal. For example, intractable [place] sea/vomiting, intractable pain, fever greater than 100.4? F, jaundice (turning yellow), etc. Prescriptions: New ibuprofen 600 mg tablet 600 mg PO TID PRN (Reason: pain) Qty: 30 0RF ondansetron 4 mg tablet,disintegrating 4 mg PO Q8H PRN (Reason: nausea and vomiting) Qty: 10 0RF acetaminophen 500 mg capsule 1,000 mg PO Q6H PRN (Reason: pain) Qty: 30 0RF No Action fluconazole 150 mg tablet 150 mg PO Q72H Qty: 2 0RF Rx Instructions: as a single dose metronidazole 500 mg tablet 500 mg PO Q12H Qty: 14 0RF Follow-up/Referrals: Mayela Mitchell MD [Physician] - (general surgery) Cassie,Kurtis Bejarano MD [Primary Care Provider] - Stand Alone Forms: Work/School Release IP Time of Disposition: 03:02
[2024-08-21 00:34] LABS: BEDSIDEPREGUCG Negative (Negative)
[2024-08-21 00:35] LABS: Basophils Percent Auto 0.6 % (0.2-1.2); Eosinophils Absolute Auto 0.2 K/mm3 (0-0.3); Eosinophils Percent Auto 2.3 % (0-4.4); Hemoglobin 12.3 g/dL (12.0-15.0); Immature Granulocyte Absolute 0.02 K/mm3 (0.00-0.031); Immature Granulocyte Percent A 0.3 % (0-0.5); Lymphocytes Absolute Auto 3.52 K/mm3 (0.9-3.2); Lymphocytes Percent Auto 53.6 % (18.3-44.2); Mean Corpuscular HGB Conc 32.4 g/dl (32-36); Mean Corpuscular Hemoglobin 28.6 pg (26-34); Mean Corpuscular Volume 88.4 fl (80-100); Mean Platelet Volume 9.3 fl (7.4-10.4); Monocytes Absolute Auto 0.5 K/mm3 (0.1-0.6); Neutrophils Absolute Auto 2.4 K/mm3 (1.3-6.7); Neutrophils Percent Auto 36.2 % (45.5-73.1); Platelet Count Result 377 k/mm3 (150-375); Red Cell Distribution Width 14.2 % (11.5-14.5); White Blood Count 6.6 K/mm3 (4.5-10.0)
[2024-08-21] MEDS: HYDROmorphone HCL INJ (*CRX) 1 MG/ML SYR 0.5 MG IV PUSH (00:39)
[2024-08-21 00:40] LABS: Add Urine Microscopic? YES; Appearance Urine Turbid (Clear); Bacteria Urine None Seen /hpf; Bilirubin Urine Negative (Negative); Blood Urine Negative (Negative); Color Urine Yellow (Yellow); Glucose Urine UA Negative (Negative); Ketones Urine Negative (Negative); Leukocyte Esterase Ur Negative LEU/UL (Negative); Nitrate Urine Negative (Negative); Non Pathogenic Casts 0-2; Protein Urine Trace mg/dL (Negative); RBC Urine 0-2 /hpf (0-2); Specific Grav Ur 1.024 (1.001-1.035); Squamous Epithelial Cell Urine Few /hpf (Few); WBC Urine 0-5 /hpf (0-3)
[2024-08-21 00:44] LABS: Alanine Aminotransferase 44 U/L (6-35); Alkaline Phosphatase 80 U/L (38-126); Anion Gap 5 mmol/L (4-12); Aspartate Amino Transferase 36 U/L (14-36); Bilirubin,Total 0.3 mg/dL (0.2-1.3); Blood Urea Nitrogen 12 mg/dL (7-17); Calcium 8.5 mg/dL (8.4-10.2); Carbon Dioxide 29 mmol/L (22-30); Chloride 103 mmol/L (98-107); Estimated CRCL calculation 103 ml/min; Estimated Glomerular Filt Rate > 60; Glucose 155 mg/dL (65-110); Lipase 111 U/L (23-300); Potassium 3.4 mmol/L (3.4-5.0); Sodium 137 mmol/L (137-145)
--- NOTE | 2024-08-21 01:09 | PC.NURSE ---
Patient states her pain is a 10/10 at the moment. Notified EDP Dr. Cortes.
[2024-08-21] MEDS: HYDROmorphone HCL INJ (*CRX) 1 MG/ML SYR IV PUSH (01:13)
[2024-08-21] MEDS: ACETAMINOPHEN 500 MG TABLET 1000 MG PO (02:06)
[2024-08-21 02:10] VITALS: BP 158/101; PULSE 71; RESP 16; TEMP 36.6; O2SAT 100
[2024-08-21] MEDS: KETOROLAC 15 MG/ML VIAL (*BKC) IV PUSH (02:47)
== END 2024-08-21 03:14 | disposition home or self-care (01) ==
PROVIDERS: Emergency Provider Student in an Organized Health Care Education/Training Program; PCP Family Medicine
DX: K80.20 Calculus of gallbladder without cholecystitis without obstruction (principal); N83.201 Unspecified ovarian cyst, right side; K42.9 Umbilical hernia without obstruction or gangrene; D75.839 Thrombocytosis, unspecified; K76.0 Fatty (change of) liver, not elsewhere classified; R73.9 Hyperglycemia, unspecified; R74.01 Elevation of levels of liver transaminase levels; E66.01 Morbid (severe) obesity due to excess calories; Z68.41 Body mass index [BMI] 40.0-44.9, adult; Z87.440 Personal history of urinary (tract) infections; Z86.2 Personal history of diseases of the blood and blood-forming organs and certain disorders involving the immune mechanism; Z86.718 Personal history of other venous thrombosis and embolism; Z87.891 Personal history of nicotine dependence; Z90.710 Acquired absence of both cervix and uterus
CPT/HCPCS: 36415; 74177; 80053; 81001; 81025; 83690; 85025; 96374; 96375; 96376; 99284; A9270; J1171; J1885; Q9967

== ENCOUNTER 2024-09-10 06:18 | Observation (INO) | payer OTHER, SELFPAY ==
[2024-09-10] VITALS (37 sets, daily range): BP systolic 110–178; BP diastolic 51–95; PULSE 70–97; RESP 15–20; TEMP 35.7–36.8; O2SAT 95–100; BMI 48.4
--- NOTE | ~2024-09-10 | US_ITS ---
EXAMINATION: US abdomen limited DATE: 09/10/2024 08:27 INDICATION: Right upper quadrant abdominal pain. Positive Peace sign. TECHNIQUE: Multiple grayscale and Doppler ultrasound images of the abdomen were obtained. COMPARISON: CT abdomen and pelvis 09/10/2024 FINDINGS: The visualized portions of the head and body of the pancreas are normal. There is diffuse h epatic steatosis. The gallbladder is distended and contains gallstones. No gallbladder wall thickenin g or sonographic Peace sign. The common duct is normal and measures 4 mm. IMPRESSION: 1. Distended gallbladder with gallstones, but no gallbladder wall thickening or sonographic Peace si gn. These findings are indeterminate for acute cholecystitis. Consider hepatobiliary scintigraphy. 2. Diffuse hepatic steatosis. Reviewed, dictated and finalized at location A. PING CHECKER IMPRESSION: 1. Distended gallbladder with gallstones, but no gallbladder wall thickening or sonographic Peace sign. These findings are indeterminate for acute cholecysti tis. Consider hepatobiliary scintigraphy. 2. Diffuse hepatic steatosis.
--- NOTE | ~2024-09-10 | CT_ITS ---
EXAMINATION: CT abdomen pelvis w con DATE: 09/10/2024 07:44 INDICATION: Right upper quadrant abdominal pain. TECHNIQUE: Computed tomography (CT) of the abdomen and pelvis was performed with 100 mL Omnipaque 350 intravenous contrast. Automated exposure control and iterative reconstruction technique were employe d. The dose-length product was 1491.16 mGy-cm. COMPARISON: CT abdomen and pelvis 08/21/2024 FINDINGS: The visualized portions of lung bases demonstrate mild atelectasis. No pleural effusion. Th e heart size is normal. No pericardial effusion. There is diffuse hepatic steatosis. There are gallst ones in the gallbladder, which is distended. The spleen, pancreas, adrenal glands, and kidneys are no rmal. There is a 2.4 cm dominant follicle in the right ovary. There are no dilated loops of bowel. Th ere are changes of appendectomy. There are no pathologically enlarged lymph nodes. There is no free i ntraperitoneal fluid. The bones are unremarkable. IMPRESSION: 1. Distended gallbladder with gallstones suspicious for acute cholecystitis. Correlate with physical exam. 2. Diffuse hepatic steatosis. Reviewed, dictated and finalized at location A. EXAMINER IMPRESSION: 1. Distended gallbladder with gallstones suspicious for acute cholecystitis. Co rrelate with physical exam. 2. Diffuse hepatic steatosis.
[2024-09-10 06:38] LABS: Basophils Percent Auto 0.5 % (0.2-1.2); Eosinophils Absolute Auto 0.2 K/mm3 (0-0.3); Eosinophils Percent Auto 2.8 % (0-4.4); Hematocrit 40.6 % (37.0-47.0); Hemoglobin 13.1 g/dL (12.0-15.0); Immature Granulocyte Absolute 0.01 K/mm3 (0.00-0.031); Immature Granulocyte Percent A 0.2 % (0-0.5); Lymphocytes Absolute Auto 2.46 K/mm3 (0.9-3.2); Lymphocytes Percent Auto 43.4 % (18.3-44.2); Mean Corpuscular HGB Conc 32.3 g/dl (32-36); Mean Corpuscular Hemoglobin 28.5 pg (26-34); Mean Corpuscular Volume 88.3 fl (80-100); Mean Platelet Volume 9.4 fl (7.4-10.4); Monocytes Absolute Auto 0.5 K/mm3 (0.1-0.6); Monocytes Percent Auto 8.8 % (2.6-8.5); Neutrophils Absolute Auto 2.5 K/mm3 (1.3-6.7); Neutrophils Percent Auto 44.3 % (45.5-73.1); Platelet Count Result 406 k/mm3 (150-375); Red Cell Distribution Width 13.8 % (11.5-14.5); White Blood Count 5.7 K/mm3 (4.5-10.0)
--- NOTE | 2024-09-10 06:46 | PC.NURSE ---
labs sent to laboratory at this time. RN informed patient to give urine sample. Patient states that she is not able to go at this time.
[2024-09-10 06:55] LABS: Alanine Aminotransferase 40 U/L (6-35); Albumin Level 4.5 g/dL (3.5-5.1); Alkaline Phosphatase 85 U/L (38-126); Anion Gap 3 mmol/L (4-12); Aspartate Amino Transferase 47 U/L (14-36); Bilirubin,Total 0.4 mg/dL (0.2-1.3); Blood Urea Nitrogen 11 mg/dL (7-17); Calcium 8.9 mg/dL (8.4-10.2); Carbon Dioxide 29 mmol/L (22-30); Chloride 105 mmol/L (98-107); Estimated CRCL calculation 86 ml/min; Estimated Glomerular Filt Rate > 60; Glucose 122 mg/dL (65-110); Lipase 83 U/L (23-300); Potassium 3.7 mmol/L (3.4-5.0); Sodium 137 mmol/L (137-145)
[2024-09-10 07:02] LABS: Add Urine Microscopic? YES; Appearance Urine Cloudy (Clear); Bacteria Urine Rare /hpf; Bilirubin Urine Negative (Negative); Blood Urine Negative (Negative); Color Urine Yellow (Yellow); Glucose Urine UA Negative (Negative); Ketones Urine Negative (Negative); Leukocyte Esterase Ur Negative LEU/UL (Negative); Nitrate Urine Negative (Negative); Non Pathogenic Casts 0-2; Protein Urine Negative (Negative); Specific Grav Ur 1.021 (1.001-1.035); Squamous Epithelial Cell Urine Moderate /hpf (Few); WBC Urine 0-5 /hpf (0-3); pH Urine 7.5 (5.0-9.0)
--- NOTE | 2024-09-10 07:11 | ED_ITS ---
HPI - Abdominal Pain General Chief Complaint: Abdominal Pain Stated Complaint: gallstones Time Seen by Provider: 09/10/24 07:07 Source: patient Mode of arrival: ambulatory Limitations: no limitations History of Present Illness HPI narrative: Patient presents with acute onset right upper quadrant abdominal pain. She believes this is related to gallstones. Patient pain similarly in August 2024. she acutely woke up with this pain for about 430 this morning. She thought maybe she just had to urinate but this did not resolve the issue. Last bowel movement was at 5:30 a.m. and she denies any diarrhea constipation. No nausea or vomiting. No fevers or chills. No vaginal bleeding or discharge. She is amenorrheic. She has a history appendectomy as well a hysterectomy in 2018. She does have a known 4 cm ovarian cyst. she has not yet taken anything for pain. Last oral intake was approximately 7:00 p.m. and she does not currently have an appetite. Given the findings from her workup 2 or 3 weeks ago she has been trying to increase her water consumption and she took a laxative on the day that she got home from the emergency department that day due to some stool burden. She states the pain is sharp and rated 12/10 in severity. Patient states due to the biliary colic she was diagnosed with at her last presentation and referral he was provided to a general surgeon, she did call about making an appointment for the outpatient setting but they did not have availability until 2024. Related Data Allergies Allergy/AdvReac Type Severity Reaction Status Date / Time peanut Allergy Severe Anaphylaxis Verified 09/10/24 07:21 morphine Allergy Unknown Unknown Verified 09/10/24 07:21 Penicillins Allergy Unknown Unknown Verified 09/10/24 07:21 mushroom Allergy Hives Verified 09/10/24 11:40 [facility] Past Medical History Medical History Anemia Anxiety DVT (deep venous thrombosis) Migraine headache Morbid obesity with BMI of 40.0-44.9, adult Ovarian cyst Uterine fibroid UTI (urinary tract infection) Surgical History Surgical History H/O tubal ligation H/O: hysterectomy 2018 History of appendectomy Previous section Family History Family History Father Diabetes mellitus Hypertension Mother History of blood clots Cerebrovascular accident Aneurysm Grandparent Varicose veins of both lower extremities Social History Social History Smoking packs per day: 0.5 Smoking cigarettes per day: 10.0 Years smoked: 15 Smoking pack-years: 7.50 Smoking status: Current every day smoker Tobacco type: cigarettes Second hand tobacco smoke exposure: Yes Alcohol intake: never Substance use: never Substance use type: marijuana Other substance usage details: Drinks one glass of wine about every 3 months. 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 HEAD: Normocephalic, atraumatic. EYES: Non injected, non icteric ENT: Nares clear, no rhinorrhea or epistaxis. NECK: Supple. CHEST: Speaking in full sentences. No respiratory distress. HEART: Regular rate and rhythm. . ABDOMEN: Soft, nondistended. Obese. Mild tenderness to palpation in the left lower quadrant as well as right lower quadrant and more so in the right upper quadrant. No rigidity or guarding. Peace sign positive. EXTREMITIES: Normal range of motion. No lower extremity edema. SKIN: Warm, dry, no rash. NEURO: No focal deficits. Alert and oriented x3. PSYCH: Normal mood and affect. Course Vital Signs Vital signs: Vital Signs Pulse Oximetry 100 09/10/24 06:26 Temperature 98.2 F 09/12/24 05:45 Pulse Rate 77 09/12/24 05:45 Respiratory Rate 14 09/12/24 05:45 Blood Pressure 131/70 09/12/24 05:45 Pulse Oximetry 98 09/12/24 05:45 Oxygen Delivery Room Air 09/11/24 20:00 Oxygen Flow Rate 8 09/10/24 15:57 MDM - Abdominal Pain MDM Narrative Medical decision making narrative: Patient presents with acute onset right upper quadrant abdominal pain. Of note she had similar in the past month and was seen by me; it was felt to represent biliary colic at that time. In the emergency department she is afebrile with vital signs notable for hypertension. Mild elevations in AST and ALT. Patient having pain after initial Dilaudid given. Ketorolac ordered. Imaging is equivocal. Attempted to see if nuclear medicine was available for a HIDA scan but they are not in on Wednesday. Given that imaging is indeterminate/ equivocal, discussed patient with on-call general surgeon Dr. Sutherland. 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 Recommends Zosyn as antibiotic if she is to be admitted as if her pain is intractable this does point more towards cholecystitis. Alternatively, if her pain is well managed and she would like to be discharged, reasonable to discharge on Levaquin or ciprofloxacin and have her follow up outpatient and he would have his office schedule this to happen this week. Dr. Sutherland then returns from call and states that given her picture, the plan will be for operative removal today. Patient is to be kept NPO. Her CLINT was 7pm last night. He does request the patient be admitted under the hospitalist and I did discuss patient with on-call hospitalist Dr. Worrell. Admit orders placed including PRN analgesic medications. Differential Diagnosis Differential diagnosis: Likely abdominal pain, calculus of kidney, constipation, diverticulitis, pancreatitis, small bowel obstruction and other (spectrum of biliary etiology) Lab Data Attestation: I reviewed the patient's lab results. Lab results narrative: Thrombocytosis, previously seen and chronic 09/12/24 06:24 09/12/24 06:24 Labs: Lab Results 09/10/24 09/10/24 09/10/24 Range/Units 06:28 06:50 07:17 WBC 5.7 (4.5-10.0) K/mm3 RBC 4.60 (4.2-5.4) M/mm3 Hgb 13.1 (12.0-15.0) g/dL Hct 40.6 (37.0-47.0) % MCV 88.3 (80-100) fl MCH 28.5 (26-34) pg MCHC 32.3 (32-36) g/dl RDW 13.8 (11.5-14.5) % Plt Count 406 H (150-375) k/mm3 MPV 9.4 (7.4-10.4) fl Immature Gran % (Auto) 0.2 (0-0.5) % Neut % (Auto) 44.3 L (45.5-73.1) % Lymph % (Auto) 43.4 (18.3-44.2) % [place] % (Auto) 8.8 H (2.6-8.5) % Eos % (Auto) 2.8 (0-4.4) % Baso % (Auto) 0.5 (0.2-1.2) % Lymph # (Auto) 2.46 (0.9-3.2) K/mm3 [place] # (Auto) 0.5 (0.1-0.6) K/mm3 Eos # (Auto) 0.2 (0-0.3) K/mm3 Baso # (Auto) 0.0 (0.0-0.1) K/mm3 Abs Immat Gran (auto) 0.01 (0.00-0.031) K/mm3 Absolute Neuts (auto) 2.5 (1.3-6.7) K/mm3 Absolute Nucleated RBC 0.000 (0.0-0.012) K/mm3 Nucleated RBC % 0.0 (0.0-0.2) % Sodium 137 (137-145) mmol/L Potassium 3.7 (3.4-5.0) mmol/L Chloride 105 (98-107) mmol/L Carbon Dioxide 29 (22-30) mmol/L Anion Gap 3 L (4-12) mmol/L BUN 11 (7-17) mg/dL Creatinine 0.90 (0.7-1.0) mg/dL Estim Creat Clear Calc 86 ml/min Estimated GFR > 60 (59 - ) Glucose 122 H (65-110) mg/dL Calcium 8.9 (8.4-10.2) mg/dL Total Bilirubin 0.4 (0.2-1.3) mg/dL AST 47 H (14-36) U/L ALT 40 H (6-35) U/L Alkaline Phosphatase 85 (38-126) U/L Total Protein 8.0 (6.3-8.2) g/dL Albumin 4.5 (3.5-5.1) g/dL Lipase 83 (23-300) U/L Urine Color Yellow (Yellow) Urine Appearance Cloudy H (Clear) Urine pH 7.5 (5.0-9.0) Ur Specific [place] 1.021 (1.001-1.035) Urine Protein Negative (Negative) mg/dL Urine Glucose (UA) Negative (Negative) mg/dL Urine Ketones Negative (Negative) mg/dL Ur Blood (Man) Negative (Negative) Urine Nitrate Negative (Negative) Urine Bilirubin Negative (Negative) Urine Urobilinogen 1.0 (<2.0) mg/dL Leukocyte Esterase Rfl Negative (Negative) ALICIA/UL Urine RBC 3-5 H (0-2) /hpf Urine WBC 0-5 (0-3) /hpf Ur Squamous Epith Cells Moderate (Few) /hpf Urine Bacteria Rare /hpf Urine Casts 0-2 POC Urine HCG, Qual Negative (Negative) Imaging Data Radiologist's impression: ITS Impressions Abdomen/Pelvis CT 09/10/24 07:47 IMPRESSION: 1. Distended gallbladder with gallstones suspicious for acute cholecystitis. Correlate with physical exam. 2. Diffuse hepatic steatosis. Abdomen Ultrasound 09/10/24 08:32 IMPRESSION: 1. Distended gallbladder with gallstones, but no gallbladder wall thickening or sonographic Peace sign. These findings are indeterminate for acute cholecystiti s. Consider hepatobiliary scintigraphy. 2. Diffuse hepatic steatosis. Discharge Plan Discharge Clinical Impression: Abdominal pain, RUQ, Thrombocytosis, Elevated AST (SGOT), Elevated ALT measurement, Microscopic hematuria, Nonalcoholic hepatosteatosis, Cholecystitis Patient Disposition: Still a Patient Condition: Stable
[2024-09-10 07:19] LABS: BEDSIDEPREGUCG Negative (Negative)
[2024-09-10] MEDS: HYDROmorphone HCL INJ (*CRX) 1 MG/ML SYR 0.5 MG IV PUSH ×2 (07:28→11:34)
[2024-09-10] MEDS: KETOROLAC 15 MG/ML VIAL (*BKC) IV PUSH (09:16)
--- NOTE | 2024-09-10 10:15 | P.CONS_ITS ---
Assessment and Plan Assessment and plan (1) Abdominal pain, RUQ: Code(s): R10.11 - Right upper quadrant pain Status: Acute Assessment and Plan: patient has into the emergency to twice in the past two to three weeks for severe right upper quadrant abdominal pain. She has gallstones noted on imaging. Today the gallbladder is dilated with some minimal gallbladder wall thickening. No pericholecystic fluid is seen. White blood count is normal. Her pain is significant and not totally controlled. I have discussed with her proceeding with laparoscopic cholecystectomy possible region open cholecystectomy today. She is agreeable to proceeding with the surgery. Risks, benefits, indications, and expected outcomes were discussed with the patient and/or family members. Specific risks to include bleeding and possible need for blood transfusion, infection, bile leak, injury to other organs, common bi le duct injury, and conversion to open cholecystectomy has been discussed. I have answered all their questions and they agreed to proceed with surgery as outlined above. (2) Cholecystitis: Code(s): K81.9 - Cholecystitis, unspecified Status: Acute HPI Data of Consult Date/Time: 09/10/24 10:15 Primary Care Provider: FAITH HEALER PHYSICIAN Consult Narrative Reason for consult: Right upper quadrant abdominal pain, acute cholecystitis, gallstones Narrative: Lyudmila Wooten is a 38 year old female who presented to the emergency room this morning with very severe pain in the right upper quadrant started at 4:00 a.m.. White blood count is normal. Liver enzymes are normal. She had a similar presentation to the emergency room couple weeks ago and did not get admitted to the hospital. She was instructed to follow with General surgery in the office an appointment was made for October 2024. Unfortunate she has had recurrent pain and has documented gallstones on CT scan on prior imaging. Gallbladder is distended now with some minimal thickening of the gallbladder wall. Since she has had 2 admissions to the emergency room with the same complaints of right upper quadrant pain and evidence of gallstones and possible acute cholecystitis I think she should be admitted to the hospital and her gallbladder surgery performed sooner than later. Her previous abdominal surgeries have included a and a laparoscopic assisted hysterectomy. Review of Systems Review of Systems: The remainder of the review of systems to include constitutional, HEENT, cardiovascular, respiratory, GI, , integumentary, musculoskeletal, endocrine, immunologic, hematologic, psychiatric, and neurologic are all negative except for which is mentioned above in the HPI. [facility] Past Medical History Medical History Anemia Anxiety DVT (deep venous thrombosis) Migraine headache Morbid obesity with BMI of 40.0-44.9, adult Ovarian cyst Uterine fibroid UTI (urinary tract infection) Surgical History Surgical History H/O tubal ligation H/O: hysterectomy 2018 History of appendectomy Previous section Family History Family History Father Diabetes mellitus Hypertension Mother History of blood clots Cerebrovascular accident Aneurysm Grandparent Varicose veins of both lower extremities Social History Social History Smoking packs per day: 0.5 Smoking cigarettes per day: 10.0 Years smoked: 15 Smoking pack-years: 7.50 Smoking status: Former smoker Tobacco type: cigarettes Alcohol intake: never Substance use: former Substance use type: marijuana Other substance usage details: Drinks one glass of wine about every 3 months. Last use: 05/2020 Living arrangements: with family Additional living arrangements comments: Stays with her mother and father Occupation/Education: occupation Additional occupation/education comments: Works in [employer] Gender identity (if verbalized by the patient): Female Sexual Orientation (if Verbalized by the Patient): Straight or Heterosexual Spiritual care concerns: No Meds Home Medications and Allergies Home Medications Medication Instructions Recorded Confirmed Type fluconazole 150 mg tablet 150 mg PO Q72H #2 tabs 08/08/24 08/08/24 Rx metronidazole 500 mg tablet 500 mg PO Q12H #14 tabs 08/15/24 Rx acetaminophen 500 mg capsule 1,000 mg PO Q6H PRN pain #30 caps 08/21/24 Rx ibuprofen 600 mg tablet 600 mg PO TID PRN pain #30 tabs 08/21/24 Rx ondansetron 4 mg disintegrating 4 mg PO Q8H PRN nausea and 08/21/24 Rx tablet vomiting #10 tabs Allergies Allergy/AdvReac Type Severity Reaction Status Date / Time peanut Allergy Severe Anaphylaxis Verified 09/10/24 07:21 morphine Allergy Unknown Unknown Verified 09/10/24 07:21 Penicillins Allergy Unknown Unknown Verified 09/10/24 07:21 Vital Signs Vital Signs - 24 hr 09/10/24 06:29 09/10/24 07:17 09/10/24 09:24 Temperature 36.8 C 36.6 C Pulse Rate 79 70 74 Respiratory Rate 18 20 18 Blood Pressure 157/94 H 158/90 H 157/95 H Pulse Oximetry 100 100 100 Oxygen Delivery Room Air Exam Const: General: comfortable and no acute distress HENMT: Ears: TM's normal bilaterally Face/Nose/Sinus: Normal nares present Mouth: Yes moist mucous membranes Eyes: General: appearance normal, both eyes and all related structures Sclera: sclerae normal Pupils: Equal, round and reactive pupils present EOM: EOMs intact bilaterally Neck: Neck: supple and no JVD Resp: Effort & Inspection: normal respiratory effort Auscultation: clear to auscultation bilaterally Cardio: Rate: regular rate Rhythm: regular rhythm GI: Other: Abdomen is obese but soft. Moderate tenderness to palpation right upper quadrant with some involuntary guarding. Gallbladder is not palpable. No ventral hernias noted. No masses. No generalized peritoneal signs. Skin: General skin exam: normal color and no rashes or lesions noted Neuro: General: gait normal Speech: normal speech Motor exam (neuro): 5/5 motor strength present throughout Sensory Exam: normal sensation Extrem: General: normal to inspection Psych: Mental Status: mental status grossly normal Affect: normal affect Results Labs 09/10/24 06:28 09/10/24 06:28 Labs: Short CBC 09/10/24 Range/Units 06:28 WBC 5.7 (4.5-10.0) K/mm3 Hgb 13.1 (12.0-15.0) g/dL Hct 40.6 (37.0-47.0) % Plt Count 406 H (150-375) k/mm3 BMP 09/10/24 06:28 Sodium 137 Potassium 3.7 Chloride 105 Carbon Dioxide 29 BUN 11 Creatinine 0.90 Glucose 122 H Calcium 8.9 Liver Function 09/10/24 Range/Units 06:28 Total Bilirubin 0.4 (0.2-1.3) mg/dL AST 47 H (14-36) U/L ALT 40 H (6-35) U/L Alkaline Phosphatase 85 (38-126) U/L Albumin 4.5 (3.5-5.1) g/dL Urine 09/10/24 Range/Units 06:50 Urine Color Yellow (Yellow) Urine Appearance Cloudy H (Clear) Urine pH 7.5 (5.0-9.0) Ur Specific [place] 1.021 (1.001-1.035) Urine Protein Negative (Negative) mg/dL Urine Glucose (UA) Negative (Negative) mg/dL Imaging Radiologist's impression: CT Scan Report Signed Patient: Lyudmila Wooten : 1985 MR#: [id number] Age: 38 Acct:[id number] Loc: [facility] ADM Date: 09/10/24Attending Dr: Ordering Physician: Delia Cortes MD Date of Service: 09/10/24 Procedure(s): CT abdomen pelvis w con Accession Number(s): [id number] cc: Delia Cortes MD; FAITH HEALER PHYSICIAN~ EXAMINATION: CT abdomen pelvis w con DATE: 09/10/2024 07:44 INDICATION: Right upper quadrant abdominal pain. TECHNIQUE: Computed tomography (CT) of the abdomen and pelvis was performed with 100 mL Omnipaque 350 intravenous contrast. Automated exposure control and iterative reconstruction technique were employed. The dose-length product was 1491.16 mGy-cm. COMPARISON: CT abdomen and pelvis 08/21/2024 FINDINGS: The visualized portions of lung bases demonstrate mild atelectasis. No pleural effusion. The heart size is normal. No pericardial effusion. There is diffuse hepatic steatosis. There are gallstones in the gallbladder, which is distended. The spleen, pancreas, adrenal glands, and kidneys are normal. There is a 2.4 cm dominant follicle in the right ovary. There are no dilated loops of bowel. There are changes of appendectomy. There are no pathologically enlarged lymph nodes. There is no free intraperitoneal fluid. The bones are unremarkable. IMPRESSION: 1. Distended gallbladder with gallstones suspicious for acute cholecystitis. Correlate with physical exam. 2. Diffuse hepatic steatosis. Reviewed, dictated and finalized at location [facility] [employer] Ultrasound Report Signed Patient: Lyudmila Wooten : 1985 MR#: [id number] Age: 38 Acct:[id number] Loc: [facility] ADM Date: 09/10/24Attending Dr: Ordering Physician: Delia Cortes MD Date of Service: 09/10/24 Procedure(s): US abdomen limited Accession Number(s): [id number] cc: Delia Cortes MD; FAITH HEALER PHYSICIAN~ EXAMINATION: US abdomen limited DATE: 09/10/2024 08:27 INDICATION: Right upper quadrant abdominal pain. Positive Peace sign. TECHNIQUE: Multiple grayscale and Doppler ultrasound images of the abdomen were obtained. COMPARISON: CT abdomen and pelvis 09/10/2024 FINDINGS: The visualized portions of the head and body of the pancreas are normal. There is diffuse hepatic steatosis. The gallbladder is distended and contains gallstones. No gallbladder wall thickening or sonographic Peace sign. The common duct is normal and measures 4 mm. IMPRESSION: 1. Distended gallbladder with gallstones, but no gallbladder wall thickening or sonographic Peace sign. These findings are indeterminate for acute cholecystitis. Consider hepatobiliary scintigraphy. 2. Diffuse hepatic steatosis. Reviewed, dictated and finalized at location [facility] [employer]
[2024-09-10] MEDS: PIPERACILLIN/TAZ 4.5G/NS 100ML 4.5 GM/100 ML BAG IVPB (10:18)
--- NOTE | 2024-09-10 12:31 | P.HP_ITS ---
H&P: HPI History of Present Illness Date/Time: 09/10/24 12:31 Chief Complaint: Abdominal pain Narrative: Patient presented to the ED with right upper quadrant abdominal discomfort. She was recently diagnosed with gallbladder stone. Similar attack a month ago. Not associated with nausea vomiting. No fever chills. She was referred to a general surgery however has not been able to see her since discharge. In the ED vitals were stable. Laboratory evaluation showed normal WBC hemoglobin. Chem panel unremarkable. LFTs with mildly elevated AST ALT with AST 47 ALT of 40. Urinalysis was negative for infection. Abdominal and pelvis CT scan was done which showed distended gallbladder with gallstones suspicious for acute cholecystitis. Diffuse hepatic steatosis. Abdominal ultrasound was also performed which showed distended gallbladder with gallstones but no gallbladder wall thickening or sonographic Peace sign. These findings are indeterminate for acute cholecystitis. She is admitted in this setting. Review of Systems Review of Systems: - CONSTITUTIONAL: Denies weight loss, fe carmela and chills. - HEENT: Denies changes in vision and he aring - RESPIRATORY: Denies SOB and cough. - CV: Denies palpitations and CP. - GI: Reports abdominal pain, denies na usea, vomiting and diarrhea. - : Denies dysuria and urinary frequen cy. - MSK: Denies myalgia and joint pain. - SKIN: Denies rash and pruritus. - NEUROLOGICAL: Denies headache and sync ope. - PSYCHIATRIC: Denies recent changes in mood. Denies anxiety and depression. [facility] Past Medical History Medical History Anemia Anxiety DVT (deep venous thrombosis) Migraine headache Morbid obesity with BMI of 40.0-44.9, adult Ovarian cyst Uterine fibroid UTI (urinary tract infection) Surgical History Surgical History H/O tubal ligation H/O: hysterectomy 2018 History of appendectomy Previous section Family History Family History Father Diabetes mellitus Hypertension Mother History of blood clots Cerebrovascular accident Aneurysm Grandparent Varicose veins of both lower extremities Social History Social History Smoking packs per day: 0.5 Smoking cigarettes per day: 10.0 Years smoked: 15 Smoking pack-years: 7.50 Smoking status: Former smoker Tobacco type: cigarettes Alcohol intake: never Substance use: former Substance use type: marijuana Other substance usage details: Drinks one glass of wine about every 3 months. 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 Gender identity (if verbalized by the patient): Female Sexual Orientation (if Verbalized by the Patient): Straight or Heterosexual Spiritual care concerns: No Meds Home Medications and Allergies Home Medications Medication Instructions Recorded Confirmed Type acetaminophen 500 mg capsule 1,000 mg PO Q6H PRN pain #30 caps 08/21/24 09/10/24 Rx ibuprofen 600 mg tablet 600 mg PO TID PRN pain #30 tabs 08/21/24 09/10/24 Rx Allergies Allergy/AdvReac Type Severity Reaction Status Date / Time peanut Allergy Severe Anaphylaxis Verified 09/10/24 07:21 morphine Allergy Unknown Unknown Verified 09/10/24 07:21 Penicillins Allergy Unknown Unknown Verified 09/10/24 07:21 mushroom Allergy Hives Verified 09/10/24 11:40 Vital Signs Vital Signs - 24 hr 09/10/24 06:29 09/10/24 07:17 09/10/24 09:24 Temperature 98.2 F 97.9 F Pulse Rate 79 70 74 Respiratory Rate 18 20 18 Blood Pressure 157/94 H 158/90 H 157/95 H Pulse Oximetry 100 100 100 Oxygen Delivery Room Air 09/10/24 06:26 09/10/24 06:27 09/10/24 06:30 Temperature Pulse Rate 73 Respiratory Rate 18 Blood Pressure 157/94 H Pulse Oximetry 100 100 100 Oxygen Delivery 09/10/24 06:49 09/10/24 07:02 09/10/24 07:20 Temperature Pulse Rate Respiratory Rate Blood Pressure Pulse Oximetry 95 100 100 Oxygen Delivery 09/10/24 07:42 09/10/24 07:43 09/10/24 07:45 Temperature Pulse Rate 80 Respiratory Rate 20 Blood Pressure 157/71 H Pulse Oximetry 100 100 100 Oxygen Delivery 09/10/24 08:00 09/10/24 08:18 09/10/24 08:30 Temperature Pulse Rate Respiratory Rate Blood Pressure Pulse Oximetry 100 100 100 Oxygen Delivery 09/10/24 08:45 09/10/24 09:00 09/10/24 09:15 Temperature Pulse Rate Respiratory Rate Blood Pressure Pulse Oximetry 100 99 100 Oxygen Delivery 09/10/24 09:24 09/10/24 09:30 09/10/24 09:31 Temperature Pulse Rate 73 70 Respiratory Rate 18 17 Blood Pressure 157/95 H 157/83 H Pulse Oximetry 100 100 100 Oxygen Delivery 09/10/24 09:45 09/10/24 10:00 09/10/24 10:15 Temperature Pulse Rate Respiratory Rate Blood Pressure Pulse Oximetry 100 100 100 Oxygen Delivery 09/10/24 10:30 09/10/24 10:31 09/10/24 10:45 Temperature Pulse Rate 79 Respiratory Rate 20 Blood Pressure 152/88 H Pulse Oximetry 100 100 100 Oxygen Delivery Exam Narrative: GENERAL: Well-appearing, well-nourished, in mild acute distress. HEAD: Normocephalic, atraumatic. EYES: Non injected, non icteric ENT: Nares clear, no rhinorrhea or epistaxis. NECK: Supple. CHEST: Speaking in full sentences. No respiratory distress. HEART: Regular rate and rhythm. . ABDOMEN: Soft, nondistended. Obese. Mild tenderness to palpation in the right upper quadrant. No rigidity or guarding. EXTREMITIES: Normal range of motion. No lower extremity edema. SKIN: Warm, dry, no rash. NEURO: No focal deficits. Alert and oriented x3. PSYCH: Normal mood and affect. H&P: Results Labs Labs: Short CBC 09/10/24 Range/Units 06:28 WBC 5.7 (4.5-10.0) K/mm3 Hgb 13.1 (12.0-15.0) g/dL Hct 40.6 (37.0-47.0) % Plt Count 406 H (150-375) k/mm3 BMP 09/10/24 06:28 Sodium 137 Potassium 3.7 Chloride 105 Carbon Dioxide 29 BUN 11 Creatinine 0.90 Glucose 122 H Calcium 8.9 Liver Function 09/10/24 Range/Units 06:28 Total Bilirubin 0.4 (0.2-1.3) mg/dL AST 47 H (14-36) U/L ALT 40 H (6-35) U/L Alkaline Phosphatase 85 (38-126) U/L Albumin 4.5 (3.5-5.1) g/dL Urine 09/10/24 Range/Units 06:50 Urine Color Yellow (Yellow) Urine Appearance Cloudy H (Clear) Urine pH 7.5 (5.0-9.0) Ur Specific [place] 1.021 (1.001-1.035) Urine Protein Negative (Negative) mg/dL Urine Glucose (UA) Negative (Negative) mg/dL Assessment and Plan Assessment and plan (1) Abdominal pain, RUQ: Code(s): R10.11 - Right upper quadrant pain Status: Acute (2) Nonalcoholic hepatosteatosis: Code(s): K76.0 - Fatty (change of) liver, not elsewhere classified Status: Acute (3) Cholecystitis: Code(s): K81.9 - Cholecystitis, unspecified Status: Acute Plan Patient presented to the ED with right upper quadrant abdominal discomfort. She was recently diagnosed with gallbladder stone. Similar attack a month ago. Not associated with nausea vomiting. No fever chills. She was referred to a general surgery however has not been able to see her since discharge. In the ED vitals were stable. Laboratory evaluation showed normal WBC hemoglobin. Chem panel unremarkable. LFTs with mildly elevated AST ALT with AST 47 ALT of 40. Urinalysis was negative for infection. Abdominal and pelvis CT scan was done which showed distended gallbladder with gallstones suspicious for acute cholecystitis. Diffuse hepatic steatosis. Abdominal ultrasound was also performed which showed distended gallbladder with gallstones but no gallbladder wall thickening or sonographic Peace sign. These findings are indeterminate for acute cholecystitis. She is admitted in this setting. General surgery has been consulted and plan for cholecystectomy due to recurrent biliary colic. This is planned this afternoon. Patient has been started on Zosyn and will be continued for the same. History of DVT History of migraine DVT prophylaxis SCD Code status full code Hospitalist MIPS Advance Care Plan I have confirmed that the patient's Advanced Care Plan is present, code status is documented, or surrogate decision maker is listed in patient medical record.: Yes Medication Reconciliation I have utilized all available resources to obtain, update and review the patients current medications (includes all prescriptions, OTC, herbals, cannabis, and nutritional supplements).: Yes
--- NOTE | 2024-09-10 12:51 | ADMGEN ---
This patient, Lyudmila Wooten, was admitted to 3 [facility] [place] Surg Room 326-01. Patient/family oriented to hospital policies and general routines including ID bracelet, bed and alarms, visiting hours, pain management, procedures, bathroom and other care routines, personal items, smoking policy, room service/diet, and visiting hours. Information on how to activate the Rapid Response Team has been discussed. Patient/Family are encouraged to report perceived risks to care and to ask questions if they do not understand what they are told or what they should do.
--- NOTE | 2024-09-10 13:16 | P.PNAN_ITS ---
Anes - Initial Pre Proc Eval Procedure: Operation Date: 09/10/24 14:00 Proposed Procedures p Laparoscopic Cholecystectomy - Shukri Sutherland MD Date/Time: 09/10/24 13:16 Surgeon: Koko Pre Op Diagnosis: cholecystitis Patient Data Age: 38 Gender: F Height: 1.65 m Weight: 131.9 kg Last Vital Signs Temp 36.6 C 09/10/24 07:17 Pulse 79 09/10/24 10:31 Resp 20 09/10/24 10:31 BP 152/88 H 09/10/24 10:31 Pulse Ox 100 09/10/24 10:45 O2 Del Method Room Air 09/10/24 06:29 Allergies Allergy/AdvReac Type Severity Reaction Status Date / Time peanut Allergy Severe Anaphylaxis Verified 09/10/24 07:21 morphine Allergy Unknown Unknown Verified 09/10/24 07:21 Penicillins Allergy Unknown Unknown Verified 09/10/24 07:21 mushroom Allergy Hives Verified 09/10/24 11:40 Home Medications Medication Instructions Recorded Confirmed Type acetaminophen 500 mg capsule 1,000 mg PO Q6H PRN pain #30 caps 08/21/24 09/10/24 Rx ibuprofen 600 mg tablet 600 mg PO TID PRN pain #30 tabs 08/21/24 09/10/24 Rx Laboratory Tests 09/10/24 09/10/24 09/10/24 06:28 06:50 07:17 WBC 5.7 K/mm3 (4.5-10.0) RBC 4.60 M/mm3 (4.2-5.4) Hgb 13.1 g/dL (12.0-15.0) Hct 40.6 % (37.0-47.0) MCV 88.3 fl (80-100) MCH 28.5 pg (26-34) MCHC 32.3 g/dl (32-36) RDW 13.8 % (11.5-14.5) Plt Count 406 H k/mm3 (150-375) MPV 9.4 fl (7.4-10.4) Immature Gran % (Auto) 0.2 % (0-0.5) Neut % (Auto) 44.3 L % (45.5-73.1) Lymph % (Auto) 43.4 % (18.3-44.2) [place] % (Auto) 8.8 H % (2.6-8.5) Eos % (Auto) 2.8 % (0-4.4) Baso % (Auto) 0.5 % (0.2-1.2) Lymph # (Auto) 2.46 K/mm3 (0.9-3.2) [place] # (Auto) 0.5 K/mm3 (0.1-0.6) Eos # (Auto) 0.2 K/mm3 (0-0.3) Baso # (Auto) 0.0 K/mm3 (0.0-0.1) Abs Immat Gran (auto) 0.01 K/mm3 (0.00-0.031) Absolute Neuts (auto) 2.5 K/mm3 (1.3-6.7) Absolute Nucleated RBC 0.000 K/mm3 (0.0-0.012) Nucleated RBC % 0.0 % (0.0-0.2) Sodium 137 mmol/L (137-145) Potassium 3.7 mmol/L (3.4-5.0) Chloride 105 mmol/L (98-107) Carbon Dioxide 29 mmol/L (22-30) Anion Gap 3 L mmol/L (4-12) BUN 11 mg/dL (7-17) Creatinine 0.90 mg/dL (0.7-1.0) Estim Creat Clear Calc 86 ml/min Estimated GFR > 60 (59 - ) Glucose 122 H mg/dL (65-110) Calcium 8.9 mg/dL (8.4-10.2) Total Bilirubin 0.4 mg/dL (0.2-1.3) AST 47 H U/L (14-36) ALT 40 H U/L (6-35) Alkaline Phosphatase 85 U/L (38-126) Total Protein 8.0 g/dL (6.3-8.2) Albumin 4.5 g/dL (3.5-5.1) Lipase 83 U/L (23-300) Urine Color Yellow (Yellow) Urine Appearance Cloudy H (Clear) Urine pH 7.5 (5.0-9.0) Ur Specific [place] 1.021 (1.001-1.035) Urine Protein Negative mg/dL (Negative) Urine Glucose (UA) Negative mg/dL (Negative) Urine Ketones Negative mg/dL (Negative) Ur Blood (Man) Negative (Negative) Urine Nitrate Negative (Negative) Urine Bilirubin Negative (Negative) Urine Urobilinogen 1.0 mg/dL (<2.0) Leukocyte Esterase Rfl Negative ALICIA/UL (Negative) Urine RBC 3-5 H /hpf (0-2) Urine WBC 0-5 /hpf (0-3) Ur Squamous Epith Cells Moderate /hpf (Few) Urine Bacteria Rare /hpf Urine Casts 0-2 POC Urine HCG, Qual Negative (Negative) Blood Type Antibody Screen 09/10/24 11:45 WBC RBC Hgb Hct MCV MCH MCHC RDW Plt Count MPV Immature Gran % (Auto) Neut % (Auto) Lymph % (Auto) [place] % (Auto) Eos % (Auto) Baso % (Auto) Lymph # (Auto) [place] # (Auto) Eos # (Auto) Baso # (Auto) Abs Immat Gran (auto) Absolute Neuts (auto) Absolute Nucleated RBC Nucleated RBC % Sodium Potassium Chloride Carbon Dioxide Anion Gap BUN Creatinine Estim Creat Clear Calc Estimated GFR Glucose Calcium Total Bilirubin AST ALT Alkaline Phosphatase Total Protein Albumin Lipase Urine Color Urine Appearance Urine pH Ur Specific [place] Urine Protein Urine Glucose (UA) Urine Ketones Ur Blood (Man) Urine Nitrate Urine Bilirubin Urine Urobilinogen Leukocyte Esterase Rfl Urine RBC Urine WBC Ur Squamous Epith Cells Urine Bacteria Urine Casts POC Urine HCG, Qual Blood Type O Positive Antibody Screen Negative Patient hx anesthesia problems: none Family hx anesthesia problems: none Results Review: All pre-operative results and documents have been reviewed as part of the pre- operative evaluation. FORMERLY [facility] Past Medical History Medical History Anemia Anxiety DVT (deep venous thrombosis) Migraine headache Morbid obesity with BMI of 40.0-44.9, adult Ovarian cyst Uterine fibroid UTI (urinary tract infection) Surgical History Surgical History H/O tubal ligation H/O: hysterectomy 2018 History of appendectomy Previous section Family History Family History Father Diabetes mellitus Hypertension Mother History of blood clots Cerebrovascular accident Aneurysm Grandparent Varicose veins of both lower extremities Social History Social History Smoking packs per day: 0.5 Smoking cigarettes per day: 10.0 Years smoked: 15 Smoking pack-years: 7.50 Smoking status: Current every day smoker Tobacco type: cigarettes Second hand tobacco smoke exposure: Yes Alcohol intake: never Substance use: never Substance use type: marijuana Other substance usage details: Drinks one glass of wine about every 3 months. Last use: 05/2020 Do You Feel Safe in your Home?: Yes Lack of Transportation: No Lack of Food: Never True Current Housing: I Have Housing Concerned About Future Housing: No Difficulty Paying Gas/Electric Bills: No Difficulty Paying for Meds: No Currently Unemployed: No Education: High School Diploma/GED Difficulty w/ Childcare or Family Care: No Living arrangements: with family Additional living arrangements comments: Stays with her mother and father Occupation/Education: occupation Additional occupation/education comments: Works in [employer] care Gender identity (if verbalized by the patient): Female Sexual Orientation (if Verbalized by the Patient): Straight or Heterosexual Spiritual care concerns: No Anes - Eval Final PreProcedure Day of Procedure 09/10/24 13:16 Patient weight: morbidly obese Heart: regular rate and rhythm Lungs: clear to auscultation Airway: Mallampati scale class III Neurological: alert and oriented Last oral intake: >/= 8 hours ASA classification: III Emergent: yes Anesthetic plan: proceed Anesthesia type and monitoring: general ETT and standard monitoring Results Review: All pre-operative results and documents have been reviewed as part of the pre- operative evaluation. Informed Consent: The patient's anesthetic plan and its attendant risks and benefits were discussed with the patient/family/POA. Questions were solicited and answers provided to the satisfaction of the patient/family/POA.
[2024-09-10] MEDS: LACTATED RINGERS 1,000 ML 30 ML IV CONT ×2 (13:30→15:27)
--- NOTE | 2024-09-10 13:54 | WPDHPUPDATE1 ---
History and Physical Update Update Date/Time: 09/10/24 13:54 History and Physical has been reviewed, including an updated exam of the patient. There are NO changes in the patient's condition. Risks, benefits, and alternatives have been discussed and questions answered. Patient agrees to proceed with procedure.
--- NOTE | 2024-09-10 14:12 | PC.NURSE ---
To OR per [ ], IV [ ]. Report given to [MARY].
[2024-09-10] MEDS: BUPivacaine HCL 0.5% PF 30 ML VIAL INFILTRATE (14:28)
[2024-09-10] MEDS: LIDO 1%/EPINEPHRINE 1:100,000 20 ML VIAL 30 ML INFILTRATE (14:29)
--- NOTE | 2024-09-10 15:35 | P.OP_ITS ---
Procedure Note - Detailed Date of Procedure 09/10/24 Pre-op Diagnosis Acute cholecystitis secondary to cholelithiasis Post-op Diagnosis Same Procedure Performed Laparoscopic cholecystectomy Surgeon Shukri Sutherland MD [employer] DANELLE Campbell Anesthesia General Indications Patient 38-year-old female who presents to emergency room with severe right upper abdominal pain for [id number]. She had an episode of similar pain about 2 weeks ago for which she went to the emergency room. She was found have cholelithiasis at that time. She was set up to be seen as an outpatient in the office but her appointment is not until October 2024. White blood count was normal in the emergency room. However CT scan abdomen pelvis showed a dilated gallbladder with gallstone. She continued to have pain emergency room despite doses of IV pain medications. She likely has acute cholecystitis and presents now for for an urgent laparoscopic cholecystectomy. Findings The patient acute inflammation of the gallbladder. It was distended and there was edema of the gallbladder wall. Mild hyperemia was seen. The gallbladder was intrahepatic in a soft fatty liver. There was a gallstone noted within infundibular gallbladder. Description of Procedure After informed consent was obtained patient brought to the operating room where she was placed supine position and general endotracheal anesthesia was administered. A time-out was then performed correctly identifying the patient as well as procedure to be performed. She was already on scheduled IV antibiotics. Abdomen is then prepped and draped usual sterile fashion. I entered the abdomen left upper quadrant utilizing a 5mm Optiview port. Once inside the abdomen insufflated to adequate pneumoperitoneum of 15mmHg of CO2. The patient did have some omental adhesions to the undersurface of the anterior abdominal wall around the umbilicus. I placed a 5mm left lateral abdominal wall trocar port and then utilized energized laparoscopic jorge to the lysis of these omental adhesions to the anterior abdominal wall. There were couple filmy adhesions from the abdominal wall to the capsule the liver. These were divided with laparoscopic jorge as well. I then placed a 5mm Optiview port in the periumbilical position. Laparoscopic switched over to the periumbilical trocar port site looking into the upper portions of the abdomen I had an unobstructed view of the gallbladder. The gallbladder was dilated and it was acutely inflamed with edema of the gallbladder wall and some mild hyperemia. I placed an epigastric 10mm trocar port and then 2 more 5mm right lateral subcostal trocar ports. The gallbladder was then held at the dome and elevated over the right half liver towards the right shoulder. A 2nd grasper was then used to hold the gallbladder at the infundibulum. The gallbladder was intrahepatic in a soft fatty liver. I was able to start stripping down the visceral peritoneum off of the infundibular gallbladder and identified the cystic duct. Cystic duct was then dissected out circumferentially. The cystic artery was identified and dissected out circumferentially as well. The posterior wall the gallbladder at the infundibulum dissected free of the liver into the critical view was obtained. I then placed 2 clips proximally cystic duct and 2 clips distally high on infundibular gallbladder. Cystic duct was divided with Endo Jorge. In a similar fashion the cystic artery clipped and divided as well. The gallbladder was then resected off the liver utilized electrocautery. At 1 point towards the end of the dissection the posterior wall the gallbladder was entered there was spillage of a small amount of bile. No gallstones were spilled. Once the gallbladder was completely free from liver is placed into an Endo-Catch bag and brought out through the epigastric port site. The gallbladder and contents were sent to pathology for examination. I then aspirated the bile from the right upper quadrant the abdomen. I then irrigated with [id number] of sterile saline solution. There is no evidence of bile leak from the liver bed or the cystic duct stump. The liver bed was hemostatic as well. I then aspirated all the fluid from the right upper quadrant the abdomen from the pelvis. I then removed all the trocar ports under direct visualization all port sites appeared hemostatic. I then allowed the abdomen decompress. I then closed the epigastric trocar port fascial defect utilizing 0 Vicryl suture placed in a figure-eight fashion. All the port sites were then closed at the skin level utilizing a running subcuticular 4-0 Monocryl suture. The incisions were then cleaned the skin glue was applied. The patient tolerated the procedure well no complications. All sponges, needles, and instrument counts were correct at the end procedure. EBL was _40__cc. The patient was awakened and taken to recovery in stable and satisfactory condition. Implants None Estimated Blood Loss 40 Drains No Packing No Pathology Yes (Gallbladder and contents to pathology) Complications No immediate complications Condition Stable Disposition PACU [facility] Billing Surgery - Charge Forward: Surgery Billing
[2024-09-10] MEDS: fentaNYL CITRATE INJ (*CRX) 100 MCG/2 ML VIAL 25 MCG IV PUSH ×6 (15:55→16:20)
--- NOTE | 2024-09-10 16:24 | PC.NURSE ---
Returned from OR per [ ]. Report received from [MARY].
[2024-09-10] MEDS: oxyCODONE HCL (*CRX) 5 MG TAB IR PO ×2 (16:47→23:38)
[2024-09-10] MEDS: LACTATED RINGERS 1,000 ML 75 ML IV CONT (16:54)
[2024-09-10] MEDS: HYDROcodone/acetaminophen (*CRX) 5-325 MG TABLET 1 TAB PO (20:29)
[2024-09-10] MEDS: IBUPROFEN IV 800 MG/200 ML 800 MG/200 ML BAG 400 MG IVPB (20:32)
[2024-09-11] VITALS (7 sets, daily range): BP systolic 135–152; BP diastolic 56–94; PULSE 74–91; RESP 12–20; TEMP 36.1–36.9; O2SAT 97–100
[2024-09-11] MEDS: HYDROcodone/acetaminophen (*CRX) 5-325 MG TABLET 1 TAB PO ×3 (02:35→18:22)
[2024-09-11] MEDS: oxyCODONE HCL (*CRX) 5 MG TAB IR PO (04:44)
[2024-09-11] MEDS: LACTATED RINGERS 1,000 ML 75 ML IV CONT (06:38)
[2024-09-11 06:46] LABS: Basophils Percent Auto 0.3 % (0.2-1.2); Eosinophils Percent Auto 0.1 % (0-4.4); Hematocrit 38.2 % (37.0-47.0); Immature Granulocyte Absolute 0.02 K/mm3 (0.00-0.031); Immature Granulocyte Percent A 0.3 % (0-0.5); Lymphocytes Absolute Auto 1.62 K/mm3 (0.9-3.2); Lymphocytes Percent Auto 22.9 % (18.3-44.2); Mean Corpuscular HGB Conc 31.4 g/dl (32-36); Mean Corpuscular Hemoglobin 28.1 pg (26-34); Mean Corpuscular Volume 89.5 fl (80-100); Mean Platelet Volume 9.7 fl (7.4-10.4); Monocytes Absolute Auto 0.4 K/mm3 (0.1-0.6); Monocytes Percent Auto 6.2 % (2.6-8.5); Neutrophils Percent Auto 70.2 % (45.5-73.1); Platelet Count Result 382 k/mm3 (150-375); Red Blood Count 4.27 M/mm3 (4.2-5.4); Red Cell Distribution Width 13.8 % (11.5-14.5); White Blood Count 7.1 K/mm3 (4.5-10.0)
[2024-09-11 06:58] LABS: Alanine Aminotransferase 66 U/L (6-35); Alkaline Phosphatase 66 U/L (38-126); Anion Gap 4 mmol/L (4-12); Aspartate Amino Transferase 60 U/L (14-36); Bilirubin,Total 0.5 mg/dL (0.2-1.3); Blood Urea Nitrogen 6 mg/dL (7-17); Calcium 8.2 mg/dL (8.4-10.2); Carbon Dioxide 28 mmol/L (22-30); Chloride 103 mmol/L (98-107); Estimated CRCL calculation 128 ml/min; Estimated Glomerular Filt Rate > 60; Glucose 99 mg/dL (65-110); Magnesium 1.9 mg/dL (1.6-2.3); Potassium 3.6 mmol/L (3.4-5.0); Sodium 135 mmol/L (137-145)
--- NOTE | 2024-09-11 10:59 | P.PNGS_ITS ---
Progress Note: A&P Assessment and Plan (1) Cholecystitis: Code(s): K81.9 - Cholecystitis, unspecified Status: Acute Assessment and Plan: She is postop day 1 following laparoscopic cholecystectomy for acute chol ecystitis secondary to cholelithiasis. She is still complaining of a lot of right upper quadrant abdominal pain that seems to be uncontrolled with her current pain regimen. I will discontinue the oxycodone and increase her hydrocodone dose to see if this helps with pain control. Labs this morning were stable. We will try to get her up and moving more today. She is tolerating a regular diet. Encouraged her to try ambulating in the halls. We will repeat labs again tomorrow morning. If the patient's pain is better controlled by tomorrow, she could be discharged home with a follow-up in [address] Sutherland. Plan I have discussed the patient's case and plan of care with Dr. Sutherland. Subjective Subjective Date/Time Seen: 09/11/24 10:59 Post Op day: 1 (Laparoscopic cholecystectomy) Patient reports: still having pain, tolerating a regular diet, voiding w/o difficulty, no flatus, no bowel movement and afebrile Interval history: Patient is still complaining of right upper quadrant abdominal pain similar to her pain prior to surgery. She does not feel any relief in her pain today. She reports this is separate from her incisional pain. She reports her abdominal pain is significant enough that she requires assistance getting in and out of the bed. She is able to ambulate into the bathroom and has been voiding without difficulty. She reports aggravation her RUQ pain when she voids, but does not feel she is having any difficulty with voiding. Denies dysuria. No nausea or vomiting. She was able to tolerate a regular diet this morning. She does not feel she is having much relief with the [place] 5-325 mg but does not like taking the oxycodone because she feels like it makes her fall asleep easily and she is ?out of it? for at least an hour after taking the medication. She is hemodynamically stable and blood pressure is mildly elevated this morning at 152/75. Exam Const: General: comfortable and no acute distress GI: Inspection: non-distended and incision (incisions dry and intact) GI Palp: Yes Soft to palpation, Yes Tenderness to palpation present (GI) (Right upper quadrant) and No Guarding due to palpation present (GI) Auscultation: normal bowel sounds Extrem: General: no calf tenderness and no edema Psych: Mental Status: mental status grossly normal Insight: Good insight present (Psych) Objective Data Vital Signs Vital Signs: Vital Signs - 24 hr 09/10/24 11:15 09/10/24 15:27 09/10/24 15:42 Temperature 96.2 F L 97.3 F L Pulse Rate 76 97 86 Respiratory Rate 20 15 15 Blood Pressure 135/69 110/51 L 111/60 Pulse Oximetry 100 100 100 Oxygen Delivery Simple Face Mask Simple Face Mask Oxygen Flow Rate 8 8 09/10/24 15:57 09/10/24 16:12 09/10/24 16:26 Temperature 97.6 F Pulse Rate 93 93 93 Respiratory Rate 15 18 18 Blood Pressure 157/92 H 157/82 H 154/82 H Pulse Oximetry 100 100 100 Oxygen Delivery Simple Face Mask Room Air Room Air Oxygen Flow Rate 8 09/10/24 15:25 09/10/24 19:03 09/10/24 19:04 Temperature 96.5 F L 97.3 F L 97.2 F L Pulse Rate 95 90 92 Respiratory Rate 20 18 20 Blood Pressure 178/88 H 170/80 H 164/74 H Pulse Oximetry 99 100 99 Oxygen Delivery Oxygen Flow Rate 09/10/24 21:28 09/10/24 20:00 09/11/24 00:40 Temperature 97.7 F 97.4 F L Pulse Rate 86 86 91 Respiratory Rate 18 18 20 Blood Pressure 149/79 H 140/56 L Pulse Oximetry 100 100 99 Oxygen Delivery Room Air Oxygen Flow Rate 09/11/24 04:00 09/11/24 08:12 09/11/24 08:00 Temperature 98.4 F 98.0 F Pulse Rate 74 77 Respiratory Rate 12 20 Blood Pressure 139/94 H 152/75 H Pulse Oximetry 100 99 Oxygen Delivery Room Air Oxygen Flow Rate Intake/Output Intake/Output: Intake & Output 09/08/24 09/09/24 09/10/24 09/11/24 23:59 23:59 23:59 23:59 Intake Total 1410 2390 Balance 1410 2390 Meds/Results Medications: Active Medications Generic Name Dose Route Start Last Admin Trade Name Freq PRN Reason Stop Dose Admin Acetaminophen 1,000 mg 09/10/24 16:34 Acetaminophen 500 Mg Tablet PO Q6H PRN Mild Pain (1-3) or Fever Hydrocodone Bitart/Acetaminophen 1 tab 09/10/24 16:34 09/11/24 08:27 Hydrocodone/Acetaminophen (*Crx) 5-325 Mg Tablet PO 1 tab Q4H PRN Administration Pain Rated 4-6 Fentanyl Citrate 25 mcg 09/10/24 13:16 09/10/24 16:20 Fentanyl Citrate Inj (*Crx) 100 Mcg/2 Ml Vial IV PUSH 25 mcg Q2M PRN Administration Pain Lactated Ringer's 1,000 mls @ 30 mls/hr 09/10/24 13:20 09/10/24 13:30 Lr - Lactated Ringers Iv IV CONT 30 mls/hr .Q24H ИРИНА Administration Lactated Ringer's 1,000 mls @ 30 mls/hr 09/10/24 13:20 09/10/24 16:32 Lr - Lactated Ringers Iv IV CONT Infused .Q24H ИРИНА Infusion Ibuprofen 800 mg in 200 mls @ 400 mls/hr 09/10/24 16:34 09/10/24 20:32 Caldolor 800 Mg/200 Ml IVPB 400 mls/hr Q6H PRN Administration Pain Rated 4-6 Lactated Ringer's 1,000 mls @ 75 mls/hr 09/10/24 16:34 09/11/24 06:38 Lr - Lactated Ringers Iv IV CONT 75 mls/hr .[id number] ИРИНА Administration Ondansetron HCl 4 mg 09/10/24 09:26 Ondansetron Inj 4 Mg/2 Ml Vial IV PUSH Q4H PRN Nausea Ondansetron HCl 4 mg 09/10/24 13:16 Ondansetron Inj 4 Mg/2 Ml Vial IV PUSH ONCE PRN Nausea Oxycodone HCl 5 mg 09/10/24 16:34 09/11/24 04:44 Oxycodone Hcl (*Crx) 5 Mg Tab Ir PO 5 mg Q4H PRN Administration Pain Rated 7-10 Radiology Results: ITS Impressions Abdomen/Pelvis CT 09/10/24 07:47 IMPRESSION: 1. Distended gallbladder with gallstones suspicious for acute cholecystitis. Correlate with physical exam. 2. Diffuse hepatic steatosis. Abdomen Ultrasound 09/10/24 08:32 IMPRESSION: 1. Distended gallbladder with gallstones, but no gallbladder wall thickening or sonographic Peace sign. These findings are indeterminate for acute cholecystitis. Consider hepatobiliary scintigraphy. 2. Diffuse hepatic steatosis. Labs Labs: Laboratory Results - last 24 hr 09/10/24 09/11/24 11:45 06:20 WBC 7.1 RBC 4.27 Hgb 12.0 Hct 38.2 MCV 89.5 MCH 28.1 MCHC 31.4 L RDW 13.8 Plt Count 382 H MPV 9.7 Immature Gran % (Auto) 0.3 Neut % (Auto) 70.2 Lymph % (Auto) 22.9 [place] % (Auto) 6.2 Eos % (Auto) 0.1 Baso % (Auto) 0.3 Lymph # (Auto) 1.62 [place] # (Auto) 0.4 Eos # (Auto) 0.0 Baso # (Auto) 0.0 Abs Immat Gran (auto) 0.02 Absolute Neuts (auto) 5.0 Absolute Nucleated RBC 0.000 Nucleated RBC % 0.0 Sodium 135 L Potassium 3.6 Chloride 103 Carbon Dioxide 28 Anion Gap 4 BUN 6 L D Creatinine 0.70 Estim Creat Clear Calc 128 Estimated GFR > 60 Glucose 99 Calcium 8.2 L Magnesium 1.9 Total Bilirubin 0.5 AST 60 H ALT 66 H Alkaline Phosphatase 66 Total Protein 7.0 Albumin 4.0 Blood Type O Positive Antibody Screen Negative
[2024-09-11] MEDS: HYDROcodone/acetaminophen (*CRX) 10-325 MG TABLET 1 TAB PO ×2 (12:16→21:38)
--- NOTE | 2024-09-11 12:26 | P.PNIM_ITS ---
Progress Note: A&P Assessment and Plan (1) Abdominal pain, RUQ: Code(s): R10.11 - Right upper quadrant pain Status: Acute (2) Nonalcoholic hepatosteatosis: Code(s): K76.0 - Fatty (change of) liver, not elsewhere classified Status: Acute (3) Cholecystitis: Code(s): K81.9 - Cholecystitis, unspecified Status: Acute Plan Patient presented to the ED with right upper quadrant abdominal discomfort. She was recently diagnosed with gallbladder stone. Similar attack a month ago. Not associated with nausea vomiting. No fever chills. She was referred to a general surgery however has not been able to see her since discharge. In the ED vitals were stable. Laboratory evaluation showed normal WBC hemoglobin. Chem panel unremarkable. LFTs with mildly elevated AST ALT with AST 47 ALT of 40. Urinalysis was negative for infection. Abdominal and pelvis CT scan was done which showed distended gallbladder with gallstones suspicious for acute cholecystitis. Diffuse hepatic steatosis. Abdominal ultrasound was also performed which showed distended gallbladder with gallstones but no gallbladder wall thickening or sonographic Peace sign. These findings are indeterminate for acute cholecystitis. She is admitted in this setting. General surgery has been consulted and now status post cholecystectomy due to recurrent biliary colic on 09/10/2024. Findings of acute cholecystitis on gross evaluation Patient has been started on Zosyn and will be continued for the same. Pain control and ambulation History of DVT History of migraine DVT prophylaxis SCD Code status full code Subjective Date/time seen: 09/11/24 12:26 Interval history: No overnight events. Complains of abdominal pain on surgical site. No nausea vomiting tolerating diet. Review of Systems Review of Systems: All systems reviewed & are unremarkable except as noted in HPI and below Exam Narrative: GENERAL: Well-appearing, well-nourished, in no acute distress HEAD: Normocephalic, atraumatic. EYES: Non injected, non icteric ENT: Nares clear, no rhinorrhea or epistaxis. NECK: Supple. CHEST: Speaking in full sentences. No respiratory distress. HEART: Regular rate and rhythm. . ABDOMEN: Soft, distended. Surgical incision dry and intact tender to palpation on right upper quadrant EXTREMITIES: Normal range of motion. No lower extremity edema. SKIN: Warm, dry, no rash. NEURO: No focal deficits. Alert and oriented x3. PSYCH: Normal mood and affect. Objective Data Vital Signs Vital Signs: Vital Signs - 24 hr 09/10/24 15:27 09/10/24 15:42 09/10/24 15:57 Temperature 97.3 F L Pulse Rate 97 86 93 Respiratory Rate 15 15 15 Blood Pressure 110/51 L 111/60 157/92 H Pulse Oximetry 100 100 100 Oxygen Delivery Simple Face Mask Simple Face Mask Simple Face Mask Oxygen Flow Rate 8 8 8 09/10/24 16:12 09/10/24 16:26 09/10/24 15:25 Temperature 97.6 F 96.5 F L Pulse Rate 93 93 95 Respiratory Rate 18 18 20 Blood Pressure 157/82 H 154/82 H 178/88 H Pulse Oximetry 100 100 99 Oxygen Delivery Room Air Room Air Oxygen Flow Rate 09/10/24 19:03 09/10/24 19:04 09/10/24 21:28 Temperature 97.3 F L 97.2 F L 97.7 F Pulse Rate 90 92 86 Respiratory Rate 18 20 18 Blood Pressure 170/80 H 164/74 H 149/79 H Pulse Oximetry 100 99 100 Oxygen Delivery Oxygen Flow Rate 09/10/24 20:00 09/11/24 00:40 09/11/24 04:00 Temperature 97.4 F L 98.4 F Pulse Rate 86 91 74 Respiratory Rate 18 20 12 Blood Pressure 140/56 L 139/94 H Pulse Oximetry 100 99 100 Oxygen Delivery Room Air Oxygen Flow Rate 09/11/24 08:12 09/11/24 08:00 09/11/24 12:00 Temperature 98.0 F 97.9 F Pulse Rate 77 79 Respiratory Rate 20 18 Blood Pressure 152/75 H 135/65 Pulse Oximetry 99 97 Oxygen Delivery Room Air Oxygen Flow Rate Intake/Output Intake/Output: Intake & Output 09/08/24 09/09/24 09/10/24 09/11/24 23:59 23:59 23:59 23:59 Intake Total 1410 2390 Balance 1410 2390 Meds/Results Medications: Active Medications Generic Name Dose Route Start Last Admin Trade Name Freq PRN Reason Stop Dose Admin Acetaminophen 1,000 mg 09/10/24 16:34 Acetaminophen 500 Mg Tablet PO Q6H PRN Mild Pain (1-3) or Fever Hydrocodone Bitart/Acetaminophen 1 tab 09/10/24 16:34 09/11/24 08:27 Hydrocodone/Acetaminophen (*Crx) 5-325 Mg Tablet PO 1 tab Q4H PRN Administration Pain Rated 4-6 Hydrocodone Bitart/Acetaminophen 1 tab 09/11/24 10:59 09/11/24 12:16 Hydrocodone/Acetaminophen (*Crx) 10-325 Mg Tablet PO 1 tab Q6H PRN Administration Pain Rated 7-10 Fentanyl Citrate 25 mcg 09/10/24 13:16 09/10/24 16:20 Fentanyl Citrate Inj (*Crx) 100 Mcg/2 Ml Vial IV PUSH 25 mcg Q2M PRN Administration Pain Ibuprofen 800 mg in 200 mls @ 400 mls/hr 09/10/24 16:34 09/10/24 20:32 Caldolor 800 Mg/200 Ml IVPB 400 mls/hr Q6H PRN Administration Pain Rated 4-6 Ondansetron HCl 4 mg 09/10/24 09:26 Ondansetron Inj 4 Mg/2 Ml Vial IV PUSH Q4H PRN Nausea Ondansetron HCl 4 mg 09/10/24 13:16 Ondansetron Inj 4 Mg/2 Ml Vial IV PUSH ONCE PRN Nausea Radiology Results: ITS Impressions Abdomen/Pelvis CT 09/10/24 07:47 IMPRESSION: 1. Distended gallbladder with gallstones suspicious for acute cholecystitis. Correlate with physical exam. 2. Diffuse hepatic steatosis. Abdomen Ultrasound 09/10/24 08:32 IMPRESSION: 1. Distended gallbladder with gallstones, but no gallbladder wall thickening or sonographic Peace sign. These findings are indeterminate for acute cholecystitis. Consider hepatobiliary scintigraphy. 2. Diffuse hepatic steatosis. Labs Labs: Laboratory Results - last 24 hr 09/10/24 09/11/24 11:45 06:20 WBC 7.1 RBC 4.27 Hgb 12.0 Hct 38.2 MCV 89.5 MCH 28.1 MCHC 31.4 L RDW 13.8 Plt Count 382 H MPV 9.7 Immature Gran % (Auto) 0.3 Neut % (Auto) 70.2 Lymph % (Auto) 22.9 [place] % (Auto) 6.2 Eos % (Auto) 0.1 Baso % (Auto) 0.3 Lymph # (Auto) 1.62 [place] # (Auto) 0.4 Eos # (Auto) 0.0 Baso # (Auto) 0.0 Abs Immat Gran (auto) 0.02 Absolute Neuts (auto) 5.0 Absolute Nucleated RBC 0.000 Nucleated RBC % 0.0 Sodium 135 L Potassium 3.6 Chloride 103 Carbon Dioxide 28 Anion Gap 4 BUN 6 L D Creatinine 0.70 Estim Creat Clear Calc 128 Estimated GFR > 60 Glucose 99 Calcium 8.2 L Magnesium 1.9 Total Bilirubin 0.5 AST 60 H ALT 66 H Alkaline Phosphatase 66 Total Protein 7.0 Albumin 4.0 Antibody Screen Negative
--- NOTE | 2024-09-11 13:00 | PC.NURSE ---
RN assumed care
[2024-09-12] MEDS: HYDROcodone/acetaminophen (*CRX) 10-325 MG TABLET 1 TAB PO ×3 (01:14→17:19)
[2024-09-12 05:45] VITALS: BP 131/70; PULSE 77; RESP 14; TEMP 36.8; O2SAT 98
[2024-09-12] MEDS: HYDROcodone/acetaminophen (*CRX) 5-325 MG TABLET 1 TAB PO ×2 (06:26→21:05)
[2024-09-12 06:49] LABS: Hematocrit 35.4 % (37.0-47.0); Hemoglobin 11.2 g/dL (12.0-15.0); Mean Corpuscular HGB Conc 31.6 g/dl (32-36); Mean Corpuscular Hemoglobin 28.1 pg (26-34); Mean Corpuscular Volume 88.7 fl (80-100); Mean Platelet Volume 9.5 fl (7.4-10.4); Platelet Count Result 330 k/mm3 (150-375); Red Blood Count 3.99 M/mm3 (4.2-5.4); White Blood Count 4.8 K/mm3 (4.5-10.0)
[2024-09-12 07:05] LABS: Alanine Aminotransferase 50 U/L (6-35); Albumin Level 3.6 g/dL (3.5-5.1); Alkaline Phosphatase 65 U/L (38-126); Anion Gap 0 mmol/L (4-12); Aspartate Amino Transferase 39 U/L (14-36); Bilirubin,Total 0.5 mg/dL (0.2-1.3); Blood Urea Nitrogen 8 mg/dL (7-17); Calcium 7.9 mg/dL (8.4-10.2); Carbon Dioxide 30 mmol/L (22-30); Chloride 104 mmol/L (98-107); Estimated CRCL calculation 113 ml/min; Estimated Glomerular Filt Rate > 60; Glucose 94 mg/dL (65-110); Potassium 3.6 mmol/L (3.4-5.0); Sodium 134 mmol/L (137-145)
--- NOTE | 2024-09-12 13:08 | PM.IMPN ---
Progress Note: A&P Assessment and Plan (1) Abdominal pain, RUQ: Code(s): R10.11 - Right upper quadrant pain Status: Acute (2) Nonalcoholic hepatosteatosis: Code(s): K76.0 - Fatty (change of) liver, not elsewhere classified Status: Acute (3) Cholecystitis: Code(s): K81.9 - Cholecystitis, unspecified Status: Acute Plan Patient presented to the ED with right upper quadrant abdominal discomfort. She was recently diagnosed with gallbladder stone. Similar attack a month ago. Not associated with nausea vomiting. No fever chills. She was referred to a general surgery however has not been able to see her since discharge. In the ED vitals were stable. Laboratory evaluation showed normal WBC hemoglobin. Chem panel unremarkable. LFTs with mildly elevated AST ALT with AST 47 ALT of 40. Urinalysis was negative for infection. Abdominal and pelvis CT scan was done which showed distended gallbladder with gallstones suspicious for acute cholecystitis. Diffuse hepatic steatosis. Abdominal ultrasound was also performed which showed distended gallbladder with gallstones but no gallbladder wall thickening or sonographic Peace sign. These findings are indeterminate for acute cholecystitis. She is admitted in this setting. General surgery has been consulted and now status post cholecystectomy due to recurrent biliary colic on 09/10/2024. Findings of acute cholecystitis on gross evaluation Patient has been started on Zosyn and this has been discontinued since cholecystectomy Pain control still an issue. On [place] will add Flexeril cell spasms. Continue ambulation History of DVT History of migraine DVT prophylaxis SCD Code status full code Subjective Date/time seen: 09/12/24 13:08 Interval history: Patient continues complains of some crampy pain on her right upper quadrant able to ambulate and eating well Review of Systems Review of Systems: All systems reviewed & are unremarkable except as noted in HPI and below Exam Narrative: GENERAL: Well-appearing, well-nourished, in no acute distress HEAD: Normocephalic, atraumatic. EYES: Non injected, non icteric ENT: Nares clear, no rhinorrhea or epistaxis. NECK: Supple. CHEST: Speaking in full sentences. No respiratory distress. HEART: Regular rate and rhythm. . ABDOMEN: Soft, distended. Surgical incision dry and intact tender to palpation on right upper quadrant EXTREMITIES: Normal range of motion. No lower extremity edema. SKIN: Warm, dry, no rash. NEURO: No focal deficits. Alert and oriented x3. PSYCH: Normal mood and affect. Objective Data Vital Signs Vital Signs: Vital Signs - 24 hr 09/11/24 16:00 09/11/24 21:43 09/11/24 20:00 Temperature 96.9 F L 98.5 F Pulse Rate 83 86 86 Respiratory Rate 18 16 16 Blood Pressure 151/83 H 151/78 H Pulse Oximetry 100 100 100 Oxygen Delivery Room Air 09/12/24 05:45 Temperature 98.2 F Pulse Rate 77 Respiratory Rate 14 Blood Pressure 131/70 Pulse Oximetry 98 Oxygen Delivery Intake/Output Intake/Output: Intake & Output 09/09/24 09/10/24 09/11/24 09/12/24 23:59 23:59 23:59 23:59 Intake Total 1410 2877 1267 Balance 1410 2877 1267 Meds/Results Medications: Active Medications Generic Name Dose Route Start Last Admin Trade Name Freq PRN Reason Stop Dose Admin Acetaminophen 1,000 mg 09/10/24 16:34 Acetaminophen 500 Mg Tablet PO Q6H PRN Mild Pain (1-3) or Fever Hydrocodone Bitart/Acetaminophen 1 tab 09/10/24 16:34 09/12/24 06:26 Hydrocodone/Acetaminophen (*Crx) 5-325 Mg Tablet PO 1 tab Q4H PRN Administration Pain Rated 4-6 Hydrocodone Bitart/Acetaminophen 1 tab 09/11/24 10:59 09/12/24 10:53 Hydrocodone/Acetaminophen (*Crx) 10-325 Mg Tablet PO 1 tab Q6H PRN Administration Pain Rated 7-10 Cyclobenzaprine HCl 5 mg 09/12/24 13:08 Cyclobenzaprine Hcl 5 Mg Tablet PO Q8H PRN Muscle Spasm Fentanyl Citrate 25 mcg 09/10/24 13:16 09/10/24 16:20 Fentanyl Citrate Inj (*Crx) 100 Mcg/2 Ml Vial IV PUSH 25 mcg Q2M PRN Administration Pain Ibuprofen 800 mg in 200 mls @ 400 mls/hr 09/10/24 16:34 09/10/24 20:32 Caldolor 800 Mg/200 Ml IVPB 400 mls/hr Q6H PRN Administration Pain Rated 4-6 Ondansetron HCl 4 mg 09/10/24 09:26 Ondansetron Inj 4 Mg/2 Ml Vial IV PUSH Q4H PRN Nausea Ondansetron HCl 4 mg 09/10/24 13:16 Ondansetron Inj 4 Mg/2 Ml Vial IV PUSH ONCE PRN Nausea Radiology Results: ITS Impressions Abdomen/Pelvis CT 09/10/24 07:47 IMPRESSION: 1. Distended gallbladder with gallstones suspicious for acute cholecystitis. Correlate with physical exam. 2. Diffuse hepatic steatosis. Abdomen Ultrasound 09/10/24 08:32 IMPRESSION: 1. Distended gallbladder with gallstones, but no gallbladder wall thickening or sonographic Peace sign. These findings are indeterminate for acute cholecystitis. Consider hepatobiliary scintigraphy. 2. Diffuse hepatic steatosis. Labs Labs: Laboratory Results - last 24 hr 09/12/24 06:24 WBC 4.8 RBC 3.99 L Hgb 11.2 L Hct 35.4 L MCV 88.7 MCH 28.1 MCHC 31.6 L RDW 14.0 Plt Count 330 MPV 9.5 Sodium 134 L Potassium 3.6 Chloride 104 Carbon Dioxide 30 Anion Gap 0 L BUN 8 Creatinine 0.80 Estim Creat Clear Calc 113 Estimated GFR > 60 Glucose 94 Calcium 7.9 L Total Bilirubin 0.5 AST 39 H ALT 50 H Alkaline Phosphatase 65 Total Protein 6.0 L Albumin 3.6
[2024-09-12] MEDS: CYCLOBENZAPRINE HCL 5 MG TABLET PO ×2 (13:15→21:05)
[2024-09-12 13:44] VITALS: BP 141/76; PULSE 81; RESP 20; TEMP 36.3; O2SAT 100
--- NOTE | 2024-09-12 13:49 | P.PNGS_ITS ---
Progress Note: A&P Assessment and Plan (1) Cholecystitis: Code(s): K81.9 - Cholecystitis, unspecified Status: Acute Assessment and Plan: She is postop day 2 following laparoscopic cholecystectomy for acute chol ecystitis secondary to cholelithiasis. Her RUQ pain seems like postoperative pain. She does report also having some muscle spasms today and was started on cyclobenzaprine by the Hospitalist. She is tolerating her diet and tolerating activity. Pain is currently controlled with oral analgesics. She is surgically stable for discharge if pain is well-controlled. Follow-up in [address] Sutherland in the office. Plan I have discussed the patient's case and plan of care with Dr. Sutherland. Subjective Subjective Date/Time Seen: 09/12/24 13:49 Post Op day: 2 (laparoscopic cholecystectomy) Patient reports: no new complaints, feels better, tolerating a regular diet, voiding w/o difficulty, flatus, no bowel movement and afebrile Interval history: Patient is feeling better today. She is up ambulating in the room and tolerating this well. She had an episode of RUQ pain while voiding in the bathroom today which she describes as a pain similar to a muscle spasm in the RUQ of her abdomen. She reports it was intense and eventually subsided, but took some time while resting in bed. No nausea or vomiting. She is tolerating her diet. No other complaints. Exam Const: General: comfortable and no acute distress GI: Inspection: non-distended and incision (incisions dry and intact) GI Palp: Yes Soft to palpation, Yes Tenderness to palpation present (GI) (incisional) and No Guarding due to palpation present (GI) Auscultation: normal bowel sounds Neuro: General: moves all extremities and no focal motor deficits Extrem: General: no calf tenderness and no edema Psych: Mental Status: mental status grossly normal Insight: Good insight present (Psych) Objective Data Vital Signs Vital Signs: Vital Signs - 24 hr 09/11/24 16:00 09/11/24 21:43 09/11/24 20:00 Temperature 96.9 F L 98.5 F Pulse Rate 83 86 86 Respiratory Rate 18 16 16 Blood Pressure 151/83 H 151/78 H Pulse Oximetry 100 100 100 Oxygen Delivery Room Air 09/12/24 05:45 09/12/24 13:44 Temperature 98.2 F 97.4 F L Pulse Rate 77 81 Respiratory Rate 14 20 Blood Pressure 131/70 141/76 H Pulse Oximetry 98 100 Oxygen Delivery Intake/Output Intake/Output: Intake & Output 09/09/24 09/10/24 09/11/24 09/12/24 23:59 23:59 23:59 23:59 Intake Total 1410 2877 1267 Balance 1410 2877 1267 Meds/Results Medications: Active Medications Generic Name Dose Route Start Last Admin Trade Name Freq PRN Reason Stop Dose Admin Acetaminophen 1,000 mg 09/10/24 16:34 Acetaminophen 500 Mg Tablet PO Q6H PRN Mild Pain (1-3) or Fever Hydrocodone Bitart/Acetaminophen 1 tab 09/10/24 16:34 09/12/24 06:26 Hydrocodone/Acetaminophen (*Crx) 5-325 Mg Tablet PO 1 tab Q4H PRN Administration Pain Rated 4-6 Hydrocodone Bitart/Acetaminophen 1 tab 09/11/24 10:59 09/12/24 10:53 Hydrocodone/Acetaminophen (*Crx) 10-325 Mg Tablet PO 1 tab Q6H PRN Administration Pain Rated 7-10 Cyclobenzaprine HCl 5 mg 09/12/24 13:08 09/12/24 13:15 Cyclobenzaprine Hcl 5 Mg Tablet PO 5 mg Q8H PRN Administration Muscle Spasm Fentanyl Citrate 25 mcg 09/10/24 13:16 09/10/24 16:20 Fentanyl Citrate Inj (*Crx) 100 Mcg/2 Ml Vial IV PUSH 25 mcg Q2M PRN Administration Pain Ibuprofen 800 mg in 200 mls @ 400 mls/hr 09/10/24 16:34 09/10/24 20:32 Caldolor 800 Mg/200 Ml IVPB 400 mls/hr Q6H PRN Administration Pain Rated 4-6 Ondansetron HCl 4 mg 09/10/24 09:26 Ondansetron Inj 4 Mg/2 Ml Vial IV PUSH Q4H PRN Nausea Ondansetron HCl 4 mg 09/10/24 13:16 Ondansetron Inj 4 Mg/2 Ml Vial IV PUSH ONCE PRN Nausea Radiology Results: ITS Impressions Abdomen/Pelvis CT 09/10/24 07:47 IMPRESSION: 1. Distended gallbladder with gallstones suspicious for acute cholecystitis. Correlate with physical exam. 2. Diffuse hepatic steatosis. Abdomen Ultrasound 09/10/24 08:32 IMPRESSION: 1. Distended gallbladder with gallstones, but no gallbladder wall thickening or sonographic Peace sign. These findings are indeterminate for acute cholecystitis. Consider hepatobiliary scintigraphy. 2. Diffuse hepatic steatosis. Labs Labs: Laboratory Results - last 24 hr 09/12/24 06:24 WBC 4.8 RBC 3.99 L Hgb 11.2 L Hct 35.4 L MCV 88.7 MCH 28.1 MCHC 31.6 L RDW 14.0 Plt Count 330 MPV 9.5 Sodium 134 L Potassium 3.6 Chloride 104 Carbon Dioxide 30 Anion Gap 0 L BUN 8 Creatinine 0.80 Estim Creat Clear Calc 113 Estimated GFR > 60 Glucose 94 Calcium 7.9 L Total Bilirubin 0.5 AST 39 H ALT 50 H Alkaline Phosphatase 65 Total Protein 6.0 L Albumin 3.6
[2024-09-12 20:00] VITALS: PULSE 92; RESP 14; O2SAT 100
[2024-09-12 21:56] VITALS: BP 124/66; PULSE 92; RESP 14; TEMP 36.4; O2SAT 100
[2024-09-13] MEDS: CYCLOBENZAPRINE HCL 5 MG TABLET PO (04:51)
[2024-09-13] MEDS: HYDROcodone/acetaminophen (*CRX) 10-325 MG TABLET 1 TAB PO ×2 (04:51→15:07)
[2024-09-13 05:58] VITALS: BP 144/79; PULSE 88; RESP 14; TEMP 36.8; O2SAT 100
[2024-09-13 08:33] VITALS: O2SAT 97
[2024-09-13] MEDS: HYDROcodone/acetaminophen (*CRX) 5-325 MG TABLET 1 TAB PO (09:58)
[2024-09-13 14:00] VITALS: BP 148/79; PULSE 95; RESP 18; TEMP 36.6; O2SAT 100
--- NOTE | 2024-09-13 14:24 | PM.DS ---
DS: Admitting Diagnosis Discharge Date 09/13/24 Admitting Diagnosis Abdominal pain DS: Discharge Diagnosis Discharge Diagnosis (1) Abdominal pain, RUQ: Code(s): R10.11 - Right upper quadrant pain Status: Acute (2) Nonalcoholic hepatosteatosis: Code(s): K76.0 - Fatty (change of) liver, not elsewhere classified Status: Acute (3) Cholecystitis: Code(s): K81.9 - Cholecystitis, unspecified Status: Acute DS: Summary Hospital Course Reason for hospitalization: 38yo female with anxiety and migraines here for abdominal pain. Please see H&P for details. Hospital Course: Patient presented to the ED with right upper quadrant abdominal discomfort. She was recently diagnosed with cholelithiasis. She had similar symptoms a month ago. She was referred to a general surgeon however has not been able to see her since discharge. In the ED, vitals were stable. CBC and BMP were unrevealing. AST 47 and ALT 40 o/w LFTs normal. UA was not consistent with infection. Abdominal and pelvis CT scan showed distended gallbladder with gallstones suspicious for acute cholecystitis and diffuse hepatic steatosis. Abdominal ultrasound showed distended gallbladder with gallstones but no gallbladder wall thickening or sonographic Peace sign. These findings are indeterminate for acute cholecystitis. She is admitted and General Surgery was consulted. Options discussed and patient underwent laproscopic cholecystectomy due to recurrent biliary colic on 09/10/2024. She had findings of acute cholecystitis on gross evaluation. Pathology showing chronic cholecystitis. Patient was started on Zosyn and this has been discontinued since cholecystectomy. Discussed the hepatic steatosis and the benefits of healthy lifestyle and exercise program with weight loss, Al questions answered. She overall did well and was able to be discharged home on 09/13/24. Status at Discharge Cognitive/behavioral status at discharge: stable Time Spent with Patient Time attestation: Total time spent providing and/or coordinating discharge services: 34 minutes Time spent: Greater than 30 minutes Exam Narrative: AF 98.3 144/79 88 14 97% ra Gen - NARD Chest - CTA bilaterally, nml RR CV - RRR S1/S2 Abd - soft, minimally tender, incisions sites are clean, dry and intact Ext - No pedal edema. Negative Homans Psych - Nml mood and affect Skin - Warm and dry DS: Data Data Completed and Pending Completed studies during hospitalization: Pending at discharge 09/10/24 14:29 Surgical [PTH] Routine Discharge Plan Discharge Attending physician on discharge: Domingo Maynard Consulting providers: Jarret Solorzano; Shukri Bhatia Discharging Clinician: Domingo Maynard Anticipated Discharge Date/Time: 09/13/24 14:33 Patient Disposition: Home, Self-Care Activity: may shower, no straining, no driving and other - see discharge instructions Diet: low fat Wound Care Instructions: incision open to air Discharge Instructions: DISCHARGE INSTRUCTION SHEET FOR HERNIA, GALLBLADDER AND APPENDIX SURGERIES DR. BHATIA 1. May shower in 24 hours, no soaking in bath x 2weeks. 2. Call office for: Wound increasingly painful or bleeding Vomiting Fever of greater than 101 degrees 3. If no bowel movement for three days, take 1 oz. (30 ml) Milk of Magnesia or MiraLax 17g 1 to 2 times daily. 4. No heavy lifting > 10-15 pounds x 2 weeks for laparoscopic cholecystectomy or appendectomy. 5. No driving for 3 days or while taking narcotic pain medications. 6. Ice to surgical site for 48 hours (30 min on, then 30 min off). 7. Up walking 10-30 minutes three times per day. 8. Resume previous home medications. 9. Call to schedule a follow-up appointment with Dr. Bhatia in 2 weeks.. ([phone]) 10. Oral pain medications prescription sent to pharmacy. Take Tylenol 500mg every 6 hours and Ibuprofen 600mg every 6 hours for the first 2 days, then as needed. 11. NUTRITION: Start out by drinking fluids and increase your diet as tolerated. If you experience nausea, try dry toast, crackers, and 7-UP. If nausea or vomiting persists, contact your surgeon?s office. 12. Gallbladders-Low Fat Diet for 2 weeks Follow-up with your primary care provider in 1-2 weeks. Please call for appointment. Thank you for using [facility] for your health care needs. Patient Instructions: Antibiotic Form, Low Fat Diet (DC), Laparoscopic Cholecystectomy (DC) Stand Alone Forms: General Discharge Information Follow-up/Referrals: Jarret Solorzano MD [Physician] - PHYSICIAN,[employer] [Primary Care Provider] - Call for Appointment Shukri Bhatia MD [Physician] - 2 Weeks Discharge Medications: New hydrocodone-acetaminophen 5-325 mg Tablet 1 tablet PO Q6H PRN (Reason: Pain Rated 4-6) Qty: 16 0RF Continued ibuprofen 600 mg tablet 600 mg PO TID PRN (Reason: pain) Qty: 30 0RF Discontinued acetaminophen 500 mg capsule 1,000 mg PO Q6H PRN (Reason: pain) Qty: 30 0RF Date of admission: 09/10/24 09:26 Primary Care Provider: PHYSICIAN,[employer] Admitting Provider: Edd Worrell Attending physician on admission: Edd Worrell Condition: Stable Hospitalist MIPS Heart Failure (Exclusion) Patient has history of Heart Transplant or Left Ventricular Assistive Device?: No IF YES, STOP HERE Heart Failure (Qualifier) Patient has current or prior documentation of LVEF less than or equal to 40%, or mod/servere depressed LVSF?: No IF NO, STOP HERE
--- NOTE | 2024-09-13 14:58 | P.PNGS_ITS ---
Progress Note: A&P Assessment and Plan (1) Cholecystitis: Code(s): K81.9 - Cholecystitis, unspecified Status: Acute Assessment and Plan: She is postop day 3 following laparoscopic cholecystectomy for acute chol ecystitis secondary to cholelithiasis. Her postoperative pain is well controlled and she is surgically stable for discharge. Follow-up with Dr. Sutherland in 2 weeks. Plan I have discussed the patient's case and plan of care with Dr. Sutherland. Subjective Subjective Date/Time Seen: 09/13/24 14:58 Post Op day: 3 (Laparoscopic cholecystectomy) Patient reports: no new complaints, feels better, pain is less, tolerating a regular diet, voiding w/o difficulty, flatus and afebrile Interval history: No new complaints overnight. Patient feeling much better and ambulating well. Her right upper quadrant pain has significantly improved after receiving the muscle relaxer for the muscle spasms. Exam Const: General: comfortable and no acute distress GI: Inspection: non-distended and incision (incisions dry and intact) GI Palp: Yes Soft to palpation, Yes Tenderness to palpation present (GI) (incisional) and No Guarding due to palpation present (GI) Auscultation: normal bowel sounds Extrem: General: no calf tenderness and no edema Psych: Mental Status: mental status grossly normal Insight: Good insight present (Psych) Objective Data Vital Signs Vital Signs: Vital Signs - 24 hr 09/12/24 21:56 09/12/24 20:00 09/13/24 05:58 Temperature 97.5 F L 98.3 F Pulse Rate 92 92 88 Respiratory Rate 14 14 14 Blood Pressure 124/66 144/79 H Pulse Oximetry 100 100 100 Oxygen Delivery Room Air 09/13/24 08:33 Temperature Pulse Rate Respiratory Rate Blood Pressure Pulse Oximetry 97 Oxygen Delivery Room Air Intake/Output Intake/Output: Intake & Output 09/10/24 09/11/24 09/12/24 09/13/24 23:59 23:59 23:59 23:59 Intake Total 1410 2877 1504 1030 Balance 1410 2877 1504 1030 Meds/Results Medications: Active Medications Generic Name Dose Route Start Last Admin Trade Name Freq PRN Reason Stop Dose Admin Acetaminophen 1,000 mg 09/10/24 16:34 Acetaminophen 500 Mg Tablet PO Q6H PRN Mild Pain (1-3) or Fever Hydrocodone Bitart/Acetaminophen 1 tab 09/10/24 16:34 09/13/24 09:58 Hydrocodone/Acetaminophen (*Crx) 5-325 Mg Tablet PO 1 tab Q4H PRN Administration Pain Rated 4-6 Hydrocodone Bitart/Acetaminophen 1 tab 09/11/24 10:59 09/13/24 04:51 Hydrocodone/Acetaminophen (*Crx) 10-325 Mg Tablet PO 1 tab Q6H PRN Administration Pain Rated 7-10 Cyclobenzaprine HCl 5 mg 09/12/24 13:08 09/13/24 04:51 Cyclobenzaprine Hcl 5 Mg Tablet PO 5 mg Q8H PRN Administration Muscle Spasm Fentanyl Citrate 25 mcg 09/10/24 13:16 09/10/24 16:20 Fentanyl Citrate Inj (*Crx) 100 Mcg/2 Ml Vial IV PUSH 25 mcg Q2M PRN Administration Pain Ibuprofen 800 mg in 200 mls @ 400 mls/hr 09/10/24 16:34 09/10/24 20:32 Caldolor 800 Mg/200 Ml IVPB 400 mls/hr Q6H PRN Administration Pain Rated 4-6 Ondansetron HCl 4 mg 09/10/24 09:26 Ondansetron Inj 4 Mg/2 Ml Vial IV PUSH Q4H PRN Nausea Ondansetron HCl 4 mg 09/10/24 13:16 Ondansetron Inj 4 Mg/2 Ml Vial IV PUSH ONCE PRN Nausea Radiology Results: ITS Impressions Abdomen/Pelvis CT 09/10/24 07:47 IMPRESSION: 1. Distended gallbladder with gallstones suspicious for acute cholecystitis. Correlate with physical exam. 2. Diffuse hepatic steatosis. Abdomen Ultrasound 09/10/24 08:32 IMPRESSION: 1. Distended gallbladder with gallstones, but no gallbladder wall thickening or sonographic Peace sign. These findings are indeterminate for acute cholecystitis. Consider hepatobiliary scintigraphy. 2. Diffuse hepatic steatosis.
== END 2024-09-13 19:25 | disposition home or self-care (01) ==
LOC: ANHED 09:29 → ANH3MEDSUR 09-13 11:56
PROVIDERS: Nurse Practitioner Family; Student in an Organized Health Care Education/Training Program; Surgery; Admitting Provider Internal Medicine; Emergency Provider Student in an Organized Health Care Education/Training Program; Visit Provider Internal Medicine
PROC: 0FT44ZZ Resection of Gallbladder, Percutaneous Endoscopic Approach (ICD-10-PCS; CPT 47562; principal; 2024-09-10 14:00)
DX: K80.10 Calculus of gallbladder with chronic cholecystitis without obstruction (principal); K82.8 Other specified diseases of gallbladder; G89.18 Other acute postprocedural pain; K76.0 Fatty (change of) liver, not elsewhere classified; N83.209 Unspecified ovarian cyst, unspecified side; E66.01 Morbid (severe) obesity due to excess calories; Z68.42 Body mass index [BMI] 45.0-49.9, adult; F41.9 Anxiety disorder, unspecified; G43.909 Migraine, unspecified, not intractable, without status migrainosus; F17.210 Nicotine dependence, cigarettes, uncomplicated; D75.839 Thrombocytosis, unspecified; R74.8 Abnormal levels of other serum enzymes; R31.29 Other microscopic hematuria; Z90.49 Acquired absence of other specified parts of digestive tract; Z90.710 Acquired absence of both cervix and uterus; Z88.5 Allergy status to narcotic agent; Z91.010 Allergy to peanuts; Z88.0 Allergy status to penicillin; Z91.018 Allergy to other foods; Z79.899 Other long term (current) drug therapy; Z86.718 Personal history of other venous thrombosis and embolism
CPT/HCPCS: 47562; 36415; 74177; 76705; 80053; 81001; 81025; 83690; 83735; 85025; 85027; 86850; 86900; 86901; 88304; 96365; 96375; 99285; A9270; G0378; G0379; J1100; J1171; J1200; J1741; J1885; J2003; J2004; J2250; J2405; J2543; J2704; J3010; J7120; Q9967